=== PATIENT | female | born 1975 | race Caucasian/White ===

== ENCOUNTER → 2019-09-26 16:28 | Outpatient (CLI) | payer MEDICARE, MEDICAID, SELFPAY ==
[2019-09-26 16:02] VITALS: BMI 25.7
--- NOTE | 2019-09-26 16:33 | RAD_ITS ---
STUDY: X-RAY CHEST REASON FOR EXAM: Female, 44 years old. Cough and fever TECHNIQUE: PA and lateral views of the chest. COMPARISON: None. FINDINGS: The lungs are clear and expanded. There is no demonstrated pleural abnormality. Normal size heart. Normal mediastinum and juan. Normal visualized pulmonary arteries. Normal visualized aortic arch and descending thoracic aorta. Normal visualized thoracic spine. Normal visualized ribs, clavicles, and shoulders. There is no demonstrated abnormality of the visualized soft tissue structures of the upper abdomen. RAD/Chest PA and Lateral IMPRESSION: Normal x-ray examination of the chest. Electronically Signed: Isaias Trejo MD at 16:49 EST , Service support ,
== END ==
PROVIDERS: Referring Provider Physician Assistant Surgical; Visit Provider Physician Assistant Surgical
DX: J20.9 Acute bronchitis, unspecified (principal)
CPT/HCPCS: 71046

== ENCOUNTER 2021-08-02 13:28 | Emergency (ER) | payer MEDICARE, MEDICAID, SELFPAY | END 2021-08-02 13:37 | LOC: ED 13:41 | PROVIDERS: PCP Internal Medicine | DX: S89.90XA Unspecified injury of unspecified lower leg, initial encounter (principal) ==

== ENCOUNTER 2021-08-17 14:15 | Emergency (ER) | payer MEDICARE, MEDICAID, SELFPAY ==
[2021-08-17 14:16] VITALS: BP 139/106; PULSE 126; RESP 18; TEMP 36; O2SAT 98; BMI 25.9
[2021-08-17 15:24] VITALS: BP 130/99; PULSE 104; RESP 16; O2SAT 97
--- NOTE | 2021-08-17 16:00 | RAD_ITS ---
HISTORY: Fullness, abdominal pain recent history of diverticulitis EXAMINATION/TECHNIQUE: XR Abdomen Series W/ Chest 1 View: COMPARISON: 09/26/19 FINDINGS: --Chest: LINES/DEVICES: None. LUNGS: No consolidation, edema or effusion. No pneumothorax. MEDIASTINUM AND CARDIOVASCULAR STRUCTURES: Cardiac silhouette not enlarged. Central airways and mediastinal contour are unremarkable. BONES AND SOFT TISSUES: No acute findings. --Abdomen: LINES AND TUBES: None. BOWEL GAS PATTERN: Non-obstructive. Significant colonic fecal retention. FREE AIR: None visualized. ORGANOMEGALY: Not seen. CALCIFICATIONS: No abnormal calcifications observed. BONES AND SOFT TISSUES: No acute findings. RAD/Acute Abdomen Inc Chest IMPRESSION: No acute cardiopulmonary disease. Nonobstructive bowel gas pattern. Increased colonic fecal retention. at 1651 Reported and signed by: Dar Gilmore MD Electronically Signed: Dar Gilmore MD at 16:49 EDT Tel , Service support ,
[2021-08-17 16:06] LABS: Absolute Lymphocyte Count 3.25 X10^3/uL (0.83-4.51); Absolute Neutrophil Count 7.3 X10^3/uL (2.0-7.7); Basophil# 0.02 X10^3/uL; Basophil% 0.2 % (0-1); Eosinophil# 0.05 X10^3/uL; Eosinophils% 0.4 % (0-5); Hematocrit 42.8 % (37-47); Hemoglobin 14.6 g/dL (12.0-15.0); Lymphocyte # 3.25 X10^3/ul (0.83-4.51); Mean Corp Hgb Conc 34.1 g/dL (32-36); Mean Corpuscular Hgb 30.1 pg (27.0-32.0); Mean Corpuscular Volume 88.2 fL (81-99); Mean Platelet Vol. 9.4 fl (6.2-12.0); Monocyte# 0.59 X10^3/uL; Monocyte% 5.3 % (0-10); NRBC Flagged by Analyzer 0 % (0-5); Neutrophil # 7.26 X10^3/uL (2.7-7.7); Neutrophil % 64.8 % (47-70); Platelet Count 336 K/mm3 (150-450); RBC Distribution Width CV 12.9 % (11.6-14.6); RBC Distribution Width SD 41.7 fl (35.1-43.9); Red Blood Count 4.85 M/mm3 (4.2-5.4); White Blood Count 11.2 K/mm3 (4.4-11.0)
[2021-08-17 16:20] LABS: Anion Gap 7 (5-15); BUN 11 mg/dL (7-18); BUN/Creat Ratio 13.4 RATIO (10-20); Calcium,Total 9.5 mg/dL (8.5-10.1); Chloride 104 mmol/L (98-107); Creatinine, Serum 0.82 mg/dL (0.55-1.02); EST Glomerular Filtration Rate 80 mL/min (>60); Est Glom Filt Rate - Afr Amer 97 mL/min (>60); Estimated Creatinine Clearance 71.67 ml/min; Glucose 90 mg/dL (74-106); Potassium 3.9 mmol/L (3.5-5.1); Sodium Level 137 mmol/L (136-145)
--- NOTE | 2021-08-17 16:45 | EDS_ITS ---
HPI HPI - GI History of Present Illness Chief Complaint: Abd Pain Detail of Chief Complaint: Abdominal pain with recent history of diverticulitis Informant: patient Abdominal Pain/Flank Pain Onset: Days Context: Sudden Onset Timing: Continuous Quality: Aching Location: LUQ and LLQ Current Severity: Mild Maximum Severity: Moderate Worsened by: Nothing Relieved by: Nothing Nausea/Vomiting/Emesis GI Symptom: Positive for Nausea; Negative for Vomiting Diarrhea/Melena/Hematochezia GI Symptom: Negative for Diarrhea, Melena and Hematochezia Associated Symptoms Associated Symptoms: Negative for Dysuria, Frequency and Hematuria Narrative Narrative: Patient is a 46-year-old woman who was diagnosed July 14 diverticulitis. She was placed on Augmentin. She had problems with the Augmentin. The Augmentin was discontinued. She was then placed on Flagyl. She has an appointment see Dr. Keily Andrade on Wednesday. She contacted her PCP who recommended she come to the emergency room because of pain. She denies documented fever. She denies cardiac respiratory symptoms. She denies urologic symptoms. Denies any change in the color, consistency or caliber of her stool. She denies blood or mucus in her stool. Prior similar symptoms: Yes Recent Illness/Hospitalization: Yes PFSH PFS Medical History Chest pain DAILY FEVER Fatigue HISTORY GALLBLADDER LIFT Hypertension Shortness of breath Home Medications alprazolam 0.25 mg tablet 0.25 mg PO BID 10/18/18 [History Last Taken Unknown] citalopram 10 mg tablet 10 mg PO DAILY 10/18/18 [History Last Taken Unknown] hydrochlorothiazide 12.5 mg capsule 12.5 mg PO DAILY 10/18/18 [History Last Taken Unknown] amoxicillin-pot clavulanate 1 tab PO DAILY 08/17/21 [History Last Taken Unknown] Allergy/AdvReac Type Severity Reaction Status Date / Time Sulfa (Sulfonamide Allergy Mild UNKNOWN Verified 10/18/18 15:47 Antibiotics) amoxicillin [From Augmentin] AdvReac Other Verified 08/02/21 13:30 ciprofloxacin [From Cipro] AdvReac Other Verified 08/02/21 13:30 clavulanic acid AdvReac Other Verified 08/02/21 13:30 [From Augmentin] COLD MEDICATIONS Allergy Mild UNKNOWN Uncoded 09/26/19 15:56 Surgical History History of hysterectomy History of tubal ligation Social History (Updated 08/17/21 @ 16:[address] Trent Johnson MD) household members: spouse Smoking Status: Current every day smoker tobacco type: e-cigarettes alcohol intake: never substance use type: does not use ROS ROS ED Constitutional Constitutional ED: Denies chills, fever(s), subjective or sweats ENT ENT ED: Denies ear pain, rhinorrhea or sore throat Cardiovascular Cardiovascular: Denies chest pain, palpitations or racing heartbeat Respiratory/Chest Respiratory/Chest: Denies cough, dyspnea, dyspnea on exertion or sputum Gastrointestinal Gastrointestinal: Reports abdominal pain and nausea; Denies constipation, diarrhea or vomiting Genitourinary Genitourinary ED: Denies dysuria, hematuria or urinary frequency Musculoskeletal Musculoskeletal: Reports back pain; Denies arthralgias or myalgias Integumentary Denies rash Neurologic Neurologic: Denies headache(s) or weakness Hematologic/Lymphatic Hematologic/Lymphatic: Denies easy bleeding or easy bruising Allergic/Immunologic Allergic/Immunologic ED: Denies urticaria EXAM Physical Exam Const Vital Signs: 08/17/21 14:16 08/17/21 15:24 Temperature 96.8 F L Temperature Source Temporal Pulse Rate 126 H 104 H Respiratory Rate 18 16 Blood Pressure 139/106 H 130/99 H Blood Pressure Mean 117 109 Pulse Ox 98 97 Oxygen Delivery Method Room Air Room Air Positive well nourished and well developed General Appearance ED: well developed and NAD HEENT Reports TM's clear and dry mucous membranes normocephalic and atraumatic Tympanic Membrane ED: Yes TM's clear Mouth ED: Yes dry mucous membranes Mouth: dry mucous membranes Eyes PERRL and EOMs intact bilaterally General Eye ED: Negative for pale conjunctiva or scleral icterus Neck no lymphadenopathy, supple and no JVD Resp normal respiratory effort and clear to auscultation bilaterally Cardio regular rate, regular rhythm, S1 normal heart sound and no murmurs GI non-tender and no masses; Negative for non-distended GI Narrative: Abdomen is tympanic and slightly distended. Inspection: abdominal distention Auscultation: normoactive bowel sounds Palpation: soft Back/Spine no CVA tenderness Thoracic Spine / Upper Back: Negative for thoracic spinal tenderness Lumbar Spine / Lower Back: Negative for lumbar spinal tenderness Extremity full ROM General Extremety ED: Yes edema General Extremity: edema Neuro CN's II-XII intact bilaterally Sensorium / Orientation: alert and oriented to person Psych mental status grossly normal and thought process normal Skin no wounds Lesions: no lesions Rashes: no rashes MDM MDM MDM Narrative Medical decision making narrative: Patient has a benign abdomen. She is present on antibiotics and has appointment see surgeon. She presently has no r eproducible pain even though she is complaining of pain. Suspect patient discomfort is due to increased gas White count was obtained and slightly elevated there is no shift or bandemia. Electrolyte panel was unremarkable. Abdominal series with an ossific gas pattern with no evidence of ileus or obstruction. Since patient abdomen is nontender to percussion and white count is not singly elevated and she does not have an elevated temperature will discharge to follow-up with Dr. Keily Andrade as scheduled for August 19. Lab Data Attestation: I reviewed the patient's lab results. Labs: Laboratory Results - last 24 hr 08/17/21 08/17/21 16:03 16:03 WBC 11.2 H RBC 4.85 Hgb 14.6 Hct 42.8 MCV 88.2 MCH 30.1 MCHC 34.1 RDW Std Deviation 41.7 RDW Coeff of Carline 12.9 Plt Count 336 MPV 9.4 Immature Gran % (Auto) 0.300 Neut % (Auto) 64.8 Lymph % (Auto) 29.0 [place] % (Auto) 5.3 Eos % (Auto) 0.4 Baso % (Auto) 0.2 Absolute Neuts (auto) 7.3 Absolute Lymphs (auto) 3.25 Nucleated RBC % 0 Sodium 137 Potassium 3.9 Chloride 104 Carbon Dioxide 26.0 Anion Gap 7 BUN 11 Creatinine 0.82 Estim Creat Clear Calc 71.67 Est GFR (MDRD) Af Amer 97 Est GFR (MDRD) Non-Af 80 BUN/Creatinine Ratio 13.4 Glucose 90 Calcium 9.5 Radiography Diagnostic Testin view abdominal series reveals an ossific gas pattern with increased air. There is no evidence of pneumo peritoneum. Is no evidence of bowel obstruction. The chest portion reveals normal cardiac silhouette size. Mediastinum is normal. Lung parenchyma is normal. With no acute findings. Osseous structures are unremarkable. X-ray was interpreted by me at 1645. Discharge Plan Triage Chief Complaint: Abd Pain ED Provider: Trent Johnson Dx/Rx/DC Orders Clinical Impression: Left upper quadrant abdominal pain of unknown etiology Prescriptions: No Action hydrochlorothiazide 12.5 mg capsule 12.5 mg PO DAILY RF: 0 alprazolam [Xanax] 0.25 mg tablet 0.25 mg PO BID RF: 0 citalopram [Celexa] 10 mg tablet 10 mg PO DAILY RF: 0 amoxicillin-pot clavulanate 875-125 mg tablet 1 tab PO DAILY RF: 0 Primary Care Provider: Trish Toney Referrals: Trish Toney MD [Primary Care Provider] - Keily Andrade MD [STAFF PHYSICIAN] - Keep [facility] appointment Disposition Disposition: Home, Self Care
[2021-08-17 17:01] VITALS: BP 130/91; PULSE 83; RESP 15; O2SAT 98
== END 2021-08-17 17:03 | disposition home or self-care (01) ==
PROVIDERS: Emergency Provider Emergency Medicine; PCP Internal Medicine
DX: R10.12 Left upper quadrant pain (principal); I10 Essential (primary) hypertension; Z90.710 Acquired absence of both cervix and uterus; Z98.51 Tubal ligation status; F17.210 Nicotine dependence, cigarettes, uncomplicated
CPT/HCPCS: 74022; 80048; 85025; 99284; A4216

== ENCOUNTER 2021-11-27 11:51 | Day surgery (SDC) | payer MEDICARE, MEDICAID, SELFPAY ==
--- NOTE | 2021-11-26 15:10 | HP.PCM_ITS ---
History and Physical Date of Admission: 11/27/21 HISTORY AND PHYSICAL ? Izzy Khan 1975 ? REFERRING PHYSICIAN: Trish Toney MD ? CHIEF COMPLAINT: history of diverticulitis ? HPI: The patient is a 46 year old female referred for endoscopy. Izzy notes history of diverticulitis a few months ago. ? The patient presently has no abdominal pain, though she notes occasional 'twinges'. ? Izzy has not undergone prior endoscopy. She is trying to determine if any trigger fingers, especially noted after having pepperoni pizza and this made her symptoms worse. ? ? PAST MEDICAL HISTORY ? Anxiety ? ? Bipolar affective disorder, currently depressed, moderate ([facility]) 06/29/2019 ? Diagnosed by [facility] 06/29/2109 ? Diverticulitis ? ? Hypertension ? ? Panic disorder ? ? PTSD (post-traumatic stress disorder) ? ? PAST SURGICAL HISTORY ? HYSTERECTOMY HX ? ? ? LIGATE FALLOPIAN TUBE ? ? ? PAST SURGICAL HISTORY OF ? ? ? bladder repair ? ? Current Outpatient Medications ? hydroCHLOROthiazide (HYDRODIURIL, ESIDRIX) 12.5 mg tablet Take 1 tablet by mouth once daily. ? ALPRAZolam (XANAX) 0.25 mg tablet 1 mg three times daily as needed. ? peg 3350-Electrolytes (GOLYTELY) 236-22.74-6.74 -5.86 gram suspension Refer to printed prep instructions from your provider. ? doxycycline monohydrate 100 mg tablet Take 1 tablet by mouth twice daily for 10 days. (Patient not taking: Reported on 10/20/2021 ) ? benzonatate (TESSALON PERLE) 100 mg capsule Take 1 capsule by mouth three times daily as needed. (Patient not taking: Reported on 10/13/2021 ) ? amoxicillin-clavulanic acid (AUGMENTIN) 875-125 mg per tablet Take by mouth. (Patient not taking: Reported on 08/27/2021 ) ? gabapentin (NEURONTIN) 100 mg capsule Take 1 capsule by mouth twice daily for 30 days. ? nystatin (MYCOSTATIN) 100,000 unit/mL suspension Take 5 mL by mouth four times daily. 1tsp swish in mouth for several minutes, then swallow (or expectorate) 4 times daily until gone. (Patient not taking: Reported on 08/01/2021 ) ? citalopram (CELEXA) 20 mg tablet Take 1 tablet by mouth once daily. (Patient not taking: Reported on 08/01/2021 ) ? ? ALLERGIES: Ciprofloxacin, Sulfa (Sulfonamide Antibiotics), Ativan [Lorazepam], Augmentin [Amoxicillin-Pot Clavulanate], Cough Decongest D, Nitrofurantoin, and Paxil [Paroxetine Hcl] ? PERSONAL HISTORY: Social History Tobacco Use ? Smoking status: Former Smoker ? ? Packs/day: 1.00 ? ? Quit date: 07/19/2021 ? ? Years since quittin.2 ? Smokeless tobacco: Never Used Substance Use Topics ? Alcohol use: Not Currently ? Drug use: No ? FAMILY HISTORY Problem Relation Age of Onset ? other (HTN) Mother ? ? other (HTN, anxiety) Father ? ? other (HTN, ADHD) Sister ? ? Anxiety disorder Brother ? ? Anxiety disorder Paternal Grandmother ? ? Breast Cancer Paternal Grandmother ? ? Emphysema Paternal Grandfather ? ? ? REVIEW OF SYSTEMS: ?General:???The patient denies fatigue, denies weight loss, denies weight g ain, denies feeling hot, and denies feelings of cold. ?Eyes: ?The patient denies glaucoma, denies eye injury/surgery, does not wear glasses or contacts. ?Ear/Nose/Throat: ?The patient NOTES allergies, denies hayfever, denies ear infections, and denies bloody noses. ?Cardiovascular: ?The patient denies chest pain, denies heart disease, NOTES high blood pressure,denies cardiac stent, denies prior heart attack, denies irregular heart beat, denies high cholesterol, ?denies poor circulation, denies heart failure, other cardiac issues, denies claudication, denies cold feet, denies peripheral arterial stent. ?Respiratory: ?The patient denies tuberculosis, denies pneumonia, denies frequent cough, denies pulmonary embolism, denies shortness of breath, and denies coughing up blood. ?Gastrointestinal: ?The patient denies difficulty swallowing, denies acid reflux, denies ulcers, denies vomiting, denies jaundice/hepatitis, denies gallbladder problems, denies black or tarry stools, denies hemorrhoids, denies bleeding from rectum, NOTES diverticulitis, NOTES constipation, denies diarrhea, denies loss of stool control, and denies hernias. ?Kidney/Bladder: ?The patient denies kidney stones, denies urine infections, and denies bloody urine. ?Skin: ?The patient denies a history of skin cancer, denies bleeding/changing moles, and denies a history of skin rash. ?Neurologic: ?The patient denies a history of epilepsy/convulsions, denies headaches, denies head/spinal injuries, and denies stroke/TIA. ?Psychiatric: ?The patient denies psychiatric medications, NOTES depression, and denies voices, denies substance abuse. ?Endocrine: ?The patient denies thyroid disorders, denies diabetes, and denies hormonal problems. ?Hematologic: ?The patient denies a history of bruising, denies bleeding, and denies anemia, denies blood clots. ?Infections: ?The patient denies a history of measles and mumps, denies rheumatic fever, and denies sexually transmitted diseases. ?Musculoskeletal: ?The patient denies back pain/injury, denies back problems, denies sciatica, denies knee/foot trouble, denies arthritis, or denies gout. ? ? PHYSICAL EXAMINATION: ? General: The patient is 46 year old female, well nourished, well hydrated in no acute distress. The patient is oriented to time, place, and person. ? VITALS: Blood pressure 102/78, pulse 88, temperature 37 ?C (98.6 ?F), height 160 cm (5' 3), weight 70.9 kg (156 lb 6.4 oz), last menstrual period 08/11/2010, SpO2 95 %. Body mass index is 27.71 kg/m?. ? Head: Normal cephalic, atraumatic ? Eyes: pupils are equally round, sclera are clear/anicteric ? Neck supple with no tracheal deviation noted ? Respiratory: Normal respiratory excursion and pattern. ? Abdominal exam: Benign appearing. ? Extremities: no clubbing, cyanosis or edema. ? Neuro: non focal ? Psych: calm and appropriate ? ? IMPRESSION: LLQ abdominal pain ? PLAN: I have discussed the above with the patient. I have offered colonoscopy , possible biopsies I have explained the procedure to the patient. I have counseled the patient as to the risks of the procedure, including but not limited to: infection, bleeding, injury to any intrabdominal organs such as liver/spleen, perforation of the GI tract, inability to complete the procedure, complications of anesthesia, etc. ? the patient understands. ? The patient was offered a surgery/procedure. The provider and patient have discussed in detail the risk of exposure to and/or potential harm posed by the COVID-19 virus with having a surgery/procedure at this time versus the risk of? delaying the surgery/procedure. It is not possible to know either the risk of delaying the surgery or procedure or chance of getting an infection with perfect accuracy, but a joint decision was made between the patient and the provider ?to proceed at this time with the scheduled surgery/procedure. ? The patient wishes to proceed. I have answered all questions to the patient?s satisfaction and the patient has no further questions. Patient prefers MAC endo ? Diagnoses: (R10.32) Left lower quadrant abdominal pain (primary encounter diagnosis) ? Return to Clinic: The patient has been instructed as to colon cleansing preparation ? . ? Keily Andrade MD
[2021-11-27] VITALS (7 sets, daily range): BP systolic 72–132; BP diastolic 47–96; PULSE 65–113; RESP 16–18; TEMP 35.8–36.9; O2SAT 98–100; BMI 28.9
[2021-11-27] MEDS: Lactated Ringers 1,000 ML 15 ML IV (12:43)
--- NOTE | 2021-11-27 13:00 | COLBX_PTH ---
PATIENT: GARY DELACRUZ LOC: EN U#:[id number] AGE/SX: 46/F ROOM: RE11/27/[address]: Dr. Keily Andrade MD : 1975 BED: DIS: 11/27/2021 SPEC #: [id number] RECD: 11/27/21 14:12 STATUS: ODALYS REPeyton #: [id number] TAMARA: 11/27/21 13:[address]: Keily Andrade DEPT: SURGICAL PATHOLOGY RECD BY: Cindy Lucio ENTERED: 11/28/21 11:18 SP TYPE: COLON BX OTHR DR: Dr. Trish Toney MD Tissues: A - Sigmoid colon biopsy B - Rectum, NOS Procedures: Surgery Specimen Level IV HEADER OPERATION: Colonoscopy (MAC) with polypectomy PRE-OP DIAGNOSIS: [facility] abdominal pain TISSUE SUBMITTED: A ? Sigmoid polyps, B ? Rectal polyp MICROSCOPIC DIAGNOSIS A. Sigmoid polyp, polypectomy: Fragments of tubular adenoma. B. Rectal polyp, polypectomy: Tubular adenoma with focal high-grade dysplasia. See comment. ROBERTO:brandon 12/01/2021 COMMENT B. High-grade dysplasia is noted towards the luminous surface of the polyp. Correlation with clinical, endoscopic findings and appropriate follow up are necessary. MICROSCOPIC DESCRIPTION Slides are reviewed. GROSS DESCRIPTION A - Received in fixative is one container labeled with the patient's name and designated sigmoid polyp. The specimen consists of a romo-pink polyp measuring 1 x 1 x 0.7 cm. This is bisected. Also present in the container are smaller fragments of romo soft tissue measuring in aggregate 0.8 x 0.2 x 0.1 cm. The entire specimen is submitted in one cassette. B - Received in fixative is one container labeled with the patient's name and designated rectal polyp. The specimen consists of a romo-pink polyp measuring 1 x 0.7 x 0.6 cm. The polyp is bisected and submitted entirely in one cassette. / ROBERTO:brandon 11/28/2021 TC:1 CPT: 09219 x2
--- NOTE | 2021-11-27 13:59 | OP.COLON_ITS ---
Patient Name: Izzy Khan Procedure Date: 11/27/2021 1:10 PM Date of : 1975 Age: 46 Procedure: Colonoscopy Indications: Abdominal pain in the left lower quadrant Providers: Keily Andrade MD Medicines: See the Anesthesia note for documentation of the administered medications Patient Profile: Refer to note in patient chart for documentation of history and physical. Last Colonoscopy: none. The patient's first colonoscopy is today. Complications: No immediate complications. Procedure: Pre-Anesthesia Assessment: - see anesthesia note After I obtained informed consent, the scope was passed under direct vision. Throughout the procedure, the patient's blood pressure, pulse, and oxygen saturations were monitored continuously. The colonoscope was introduced through the anus and advanced to the cecum, identified by the appendiceal orifice, IC valve and transillumination. The colonoscopy was performed without difficulty. The patient tolerated the procedure well. The quality of the bowel preparation was poor, there was still retained fecal material. Therefore lavage and aspiration was done to clear the fecal material. This took some time. The baldwin were cleared adequately. Scope In: 1:16:57 PM Scope Withdrawal Time 0 hours 29 minutes 40 seconds Scope Out: 1:52:05 PM Total Procedure Duration Time 0 hours 35 minutes 8 seconds Findings: The perianal and digital rectal examinations were normal. A 10 to 20 mm polyp was found in the sigmoid colon. The polyp was pedunculated. The polyp was removed with a hot snare. Resection and retrieval were complete. Verification of patient identification for the specimen was done. Area was successfully injected with 2 mL Vesna ink for tattooing. Estimated blood loss was minimal. A 5 to 14 mm polyp was found in the rectum. The polyp was pedunculated. The polyp was removed with a hot snare. Resection and retrieval were complete. Verification of patient identification for the specimen was done by the nurse. Estimated blood loss was minimal. A 4 to 9 mm polyp was found in the distal sigmoid colon. The polyp was sessile. The polyp was removed with a hot snare. Resection and retrieval were complete. Verification of patient identification for the specimen was done by the nurse. Estimated blood loss was minimal. Multiple small and large-mouthed diverticula were found in the sigmoid colon. Impression: - One 10 to 20 mm polyp in the sigmoid colon, removed with a hot snare. Resected and retrieved. Injected. - One 5 to 14 mm polyp in the rectum, removed with a hot snare. Resected and retrieved. - One 4 to 9 mm polyp in the distal sigmoid colon, removed with a hot snare. Resected and retrieved. - Diverticulosis in the sigmoid colon. Recommendation: - Discharge patient to home (ambulatory). - Resume previous diet. - Continue present medications. - Await pathology results. - You may set up a televisit with Tammy Kelly PA-C - please call to set up this appointment, if you want discussion of results. - Repeat colonoscopy is recommended for adenoma surveillance. The colonoscopy date will be determined after pathology results from today's exam become available for review. Procedure Code(s): --- Professional --- 32399, Colonoscopy, flexible; with removal of tumor(s), polyp(s), or other lesion(s) by snare technique 79940, Colonoscopy, flexible; with directed submucosal injection(s), any substance Diagnosis Code(s): --- Professional --- K62.1, Rectal polyp D12.5, Benign neoplasm of sigmoid colon R10.32, Left lower quadrant pain K57.30, Diverticulosis of large intestine without perforation or abscess without bleeding CPT copyright 2017 [employer]. All rights reserved. The codes documented in this report are preliminary and upon health information coder review may be revised to meet current compliance requirements. MD Keily Santamaria MD 11/27/2021 1:58:49 PM This report has been signed electronically. Number of Addenda: 0 Note Initiated On: 11/27/2021 1:10 PM
--- NOTE | 2021-11-27 14:00 | OP.CCLET_ITS ---
11/27/2021 Trish Toney [address] [id number] Re : Colonoscopy procedure for Izzy Khan Dear Dr. Toney This procedure was performed on November. My impressions and recommendations are as follows: Impressions : - One 10 to 20 mm polyp in the sigmoid colon, removed with a hot snare. Resected and retrieved. Injected. - One 5 to 14 mm polyp in the rectum, removed with a hot snare. Resected and retrieved. - One 4 to 9 mm polyp in the distal sigmoid colon, removed with a hot snare. Resected and retrieved. - Diverticulosis in the sigmoid colon. Recommendations : - Discharge patient to home (ambulatory). - Resume previous diet. - Continue present medications. - Await pathology results. - You may set up a televisit with Tammy Kelly PA-C - please call to set up this appointment, if you want discussion of results. - Repeat colonoscopy is recommended for adenoma surveillance. The colonoscopy date will be determined after pathology results from today's exam become available for review. My findings are described in the full procedure note, which is enclosed. If I can be of further assistance, please feel free to contact me at Doctor phone number(s): , Work: . Sincerely, MD Keily Santamaria MD 11/27/2021 1:58:49 PM This report has been signed electronically.
== END 2021-11-27 23:59 | disposition home or self-care (01) ==
LOC: EN 11:55 → AC 12:01
PROVIDERS: PCP Internal Medicine; Referring Provider Internal Medicine; Visit Provider Surgery
PROC: 0DJD8ZZ Inspection of Lower Intestinal Tract, Via Natural or Artificial Opening Endoscopic (ICD-10-PCS; CPT 45378; principal; 2021-11-27 12:55)
DX: D12.5 Benign neoplasm of sigmoid colon (principal); K57.30 Diverticulosis of large intestine without perforation or abscess without bleeding; D12.8 Benign neoplasm of rectum; F43.10 Post-traumatic stress disorder, unspecified; I10 Essential (primary) hypertension; Z87.891 Personal history of nicotine dependence; Z87.19 Personal history of other diseases of the digestive system; Z79.899 Other long term (current) drug therapy; Z86.16 Personal history of COVID-19
CPT/HCPCS: 45381; 45385; 88305; J7120; A4648; J2405

== ENCOUNTER 2022-01-12 13:51 | Emergency (ER) | payer MEDICARE, MEDICAID, SELFPAY ==
[2022-01-12 13:52] VITALS: BP 135/85; PULSE 108; RESP 18; TEMP 35.9; O2SAT 97; BMI 25.7
--- NOTE | 2022-01-12 14:41 | EX.ED.DYSGE1 ---
HPI History of Present Illness Chief Complaint: Abd Pain Informant: patient Narrative Narrative: Patient presents with some abdominal pain. She had an episode of diverticulitis back in July or August. She has had some GI symptoms off and on ever since. She just saw Dr. Puga on Wednesday. He ordered multiple blood in lab test. She has not yet been able to get hold of him over the weekend to ask about the timing of these. She came in today to the emergency department to get these because she is also starting to get more left lower quadrant pain again. Her symptoms started worsening on Wednesday of last week. She ate mozzarella sticks which caused some cramping discomfort and softer bowel movements. Her bowel movements are now firm after missing her Metamucil dose. No blood. No fevers or chills. No urinary symptoms. She has had some mild nausea on occasion but no vomiting. [facility] Medical History Anemia Anxiety Diverticulitis Fatigue History of COVID-19 History of diverticulitis Hypertension Lymph node disorder Personal history of colonic polyps Shortness of breath Smoker Vaso vagal episode Wears partial dentures Home Medications alprazolam 0.25 mg tablet 1 mg PO TID 10/18/18 [History Last Taken 11/27/21] hydrochlorothiazide 12.5 mg capsule 12.5 mg PO DAILY 10/18/18 [History Last Taken Unknown] dicyclomine 10 mg capsule 20 mg PO Q6H PRN #90 cap NS 01/12/22 [Rx Last Taken Unknown] Allergy/AdvReac Type Severity Reaction Status Date / Time Sulfa (Sulfonamide Allergy Mild UNKNOWN Verified 11/26/21 10:43 Antibiotics) amoxicillin [From Augmentin] AdvReac Other Verified 11/26/21 10:43 ciprofloxacin [From Cipro] AdvReac Other Verified 11/26/21 10:43 clavulanic acid AdvReac Other Verified 11/26/21 10:43 [From Augmentin] COLD MEDICATIONS Allergy Mild UNKNOWN Uncoded 11/26/21 10:43 Surgical History History of hysterectomy History of tooth extraction History of tubal ligation Hx of bladder repair surgery Social History household members: spouse Smoking Status: Current every day smoker tobacco type: e-cigarettes alcohol intake: never substance use type: does not use ROS ROS ED Constitutional Constitutional ED: Denies chills or fever(s) Eyes Eyes: Denies change in vision ENT ENT ED: Denies rhinorrhea or sore throat Cardiovascular Cardiovascular: Denies chest pain Respiratory/Chest Respiratory/Chest: Denies cough or dyspnea Gastrointestinal Gastrointestinal: Reports abdominal pain, diarrhea and nausea; Denies constipation, melena or vomiting Genitourinary Genitourinary ED: Denies dysuria or hematuria Musculoskeletal Musculoskeletal: Denies myalgias Integumentary Denies rash Neurologic Neurologic: Denies headache(s) or weakness Psychiatric Psychiatric: Reports anxiety Endocrine Endocrinology: Denies polydipsia or polyuria Allergic/Immunologic Allergic/Immunologic ED: Denies urticaria EXAM Physical Exam Const Vital Signs: 01/12/22 13:52 Temperature 96.7 F L Temperature Source Temporal Pulse Rate 108 H Respiratory Rate 18 Blood Pressure 135/85 H Blood Pressure Mean 101 Pulse Ox 97 Oxygen Delivery Method Room Air Positive well nourished and well developed General Appearance ED: well developed and NAD; Negative for cyanotic or diaphoretic HEENT Reports moist mucous membranes Eyes General Eye ED: Negative for pale conjunctiva or scleral icterus Neck no JVD Chest Wall inspection of chest normal Resp normal respiratory effort and clear to auscultation bilaterally Effort and Inspection: Negative for pain with movement Auscultation: Negative for rales, rhonchi or wheezes Cardio regular rate GI normal to inspection, nondistended, normoactive bowel sounds GI Narrative: Abdomen is soft with normal bowel sounds. Nondistended. She has very mild tenderness to the left lower quadrant. Most of this is subjective. There is no indication of rebound or guarding. I feel no mass. No CVA tenderness. Palpation: soft Back/Spine no CVA tenderness Extremity normal to inspection Neuro Sensorium / Orientation: alert Psych mental status grossly normal Skin no rashes or lesions noted and no wounds MDM MDM MDM Narrative Medical decision making narrative: Patient CBC shows mild elevation of the hemoglobin but no other abnormality. Electrolytes are overall unremarkable. Lactate is negative. ESR and CRP are negative. Liver function test are normal. Urinalysis is normal. CT does not show any acute process. Patient was comfortable with the results. She is comfortable going home. It sounds like Bentyl was just sent in as a prescription today. She states the pharmacy was out of it but they should have it in a couple days. She will follow up with Dr. Puga as scheduled. We discussed reasons to return that would be worsening pain, vomiting, fevers or other concerns. Lab Data Attestation: I reviewed the patient's lab results. Labs: Laboratory Results - last 24 hr 01/12/22 01/12/22 01/12/22 14:50 14:50 14:50 WBC 10.9 RBC 5.16 Hgb 15.8 H Hct 46.4 MCV 89.9 MCH 30.6 MCHC 34.1 RDW Std Deviation 41.4 RDW Coeff of Carline 12.5 Plt Count 353 MPV 9.7 Immature Gran % (Auto) 0.300 Neut % (Auto) 57.9 Lymph % (Auto) 36.0 [place] % (Auto) 4.8 Eos % (Auto) 0.7 Baso % (Auto) 0.3 Absolute Neuts (auto) 6.3 Absolute Lymphs (auto) 3.92 Nucleated RBC % 0 ESR 8 Sodium 136 Potassium 3.3 L Chloride 102 Carbon Dioxide 29.0 Anion Gap 5 BUN 9 Creatinine 0.95 Estim Creat Clear Calc 61.86 Est GFR (MDRD) Af Amer 82 Est GFR (MDRD) Non-Af 67 BUN/Creatinine Ratio 9.5 L Glucose 98 Lactic Acid 1.1 Calcium 9.3 Total Bilirubin 0.40 AST 14 L ALT 26 Alkaline Phosphatase 73 Lactate Dehydrogenase 146 C-React Prot Ext Range < 2.90 Total Protein 8.6 H Albumin 4.5 Globulin 4.1 Albumin/Globulin Ratio 1.1 Urine Color Urine Clarity Urine pH Ur Specific [place] Urine Protein Urine Glucose (UA) Urine Ketones Urine Occult Blood Urine Nitrite Urine Bilirubin Urine Urobilinogen Ur Leukocyte Esterase Urine RBC Urine WBC Ur Squamous Epith Cells Urine Bacteria Urine Mucus 01/12/22 15:37 WBC RBC Hgb Hct MCV MCH MCHC RDW Std Deviation RDW Coeff of Carline Plt Count MPV Immature Gran % (Auto) Neut % (Auto) Lymph % (Auto) [place] % (Auto) Eos % (Auto) Baso % (Auto) Absolute Neuts (auto) Absolute Lymphs (auto) Nucleated RBC % ESR Sodium Potassium Chloride Carbon Dioxide Anion Gap BUN Creatinine Estim Creat Clear Calc Est GFR (MDRD) Af Amer Est GFR (MDRD) Non-Af BUN/Creatinine Ratio Glucose Lactic Acid Calcium Total Bilirubin AST ALT Alkaline Phosphatase Lactate Dehydrogenase C-React Prot Ext Range Total Protein Albumin Globulin Albumin/Globulin Ratio Urine Color Yellow Urine Clarity Clear Urine pH 6.5 Ur Specific [place] 1.005 Urine Protein Negative Urine Glucose (UA) Normal Urine Ketones Negative Urine Occult Blood Negative Urine Nitrite Negative Urine Bilirubin Negative Urine Urobilinogen Normal Ur Leukocyte Esterase Negative Urine RBC 0 SEEN Urine WBC 0-5 SEEN Ur Squamous Epith Cells 0-5 SEEN Urine Bacteria RARE Urine Mucus 0 SEEN Radiography Diagnostic Testing: Clinical Impression(s) from Imaging Studies Abdomen/Pelvis CT 01/12/22 15:45 IMPRESSION: Negative CT of the abdomen and pelvis with intravenous contrast. Electronically Signed: Kristy Frazier MD at 16:30 EST Reading Location ID and State: [id number] / Tel , Service support , Discharge Plan Triage Chief Complaint: Abd Pain ED Provider: Valentin Salazar Dx/Rx/DC Orders Clinical Impression: Abdominal pain, History of diverticulitis Instructions: ED Abdominal Pain Unkn Cause Fem Prescriptions: No Action hydrochlorothiazide 12.5 mg capsule 12.5 mg PO DAILY RF: 0 alprazolam [Xanax] 0.25 mg tablet 1 mg PO TID RF: 0 dicyclomine 10 mg capsule 20 mg PO Q6H PRN (Reason: abdominal discomfort) Qty: 90 RF: 3 Primary Care Provider: Trish Toney Referrals: Trish Toney MD [Primary Care Provider] - Miguel Puga DO [STAFF PHYSICIAN] - Keep Bernice appointment Disposition Disposition: Home, Self Care
[2022-01-12 15:05] LABS: Erythrocyte Sedimentation Rate 8 mm/hr (0-30)
[2022-01-12 15:06] LABS: Absolute Lymphocyte Count 3.92 X10^3/uL (0.83-4.51); Absolute Neutrophil Count 6.3 X10^3/uL (2.0-7.7); Basophil# 0.03 X10^3/uL; Basophil% 0.3 % (0-1); Eosinophil# 0.08 X10^3/uL; Eosinophils% 0.7 % (0-5); Hematocrit 46.4 % (37-47); Hemoglobin 15.8 g/dL (12.0-15.0); Lymphocyte # 3.92 X10^3/ul (0.83-4.51); Mean Corp Hgb Conc 34.1 g/dL (32-36); Mean Corpuscular Hgb 30.6 pg (27.0-32.0); Mean Corpuscular Volume 89.9 fL (81-99); Mean Platelet Vol. 9.7 fl (6.2-12.0); Monocyte# 0.52 X10^3/uL; Monocyte% 4.8 % (0-10); NRBC Flagged by Analyzer 0 % (0-5); Neutrophil # 6.31 X10^3/uL (2.7-7.7); Neutrophil % 57.9 % (47-70); Platelet Count 353 K/mm3 (150-450); RBC Distribution Width CV 12.5 % (11.6-14.6); RBC Distribution Width SD 41.4 fl (35.1-43.9); Red Blood Count 5.16 M/mm3 (4.2-5.4); White Blood Count 10.9 K/mm3 (4.4-11.0)
[2022-01-12 15:40] LABS: ALB/GLOB Ratio 1.1 RATIO (0.9-2.4); AST(SGOT) 14 U/L (15-37); Alanine Aminotransfer ALT/SGPT 26 U/L (13-56); Albumin, Serum 4.5 g/dL (3.2-5.0); Alkaline Phosphatase 73 U/L (45-117); Anion Gap 5 (5-15); BUN 9 mg/dL (7-18); BUN/Creat Ratio 9.5 RATIO (10-20); CRP < 2.90 mg/L (0.0-3.0); Calcium,Total 9.3 mg/dL (8.5-10.1); Chloride 102 mmol/L (98-107); Creatinine, Serum 0.95 mg/dL (0.55-1.02); EST Glomerular Filtration Rate 67 mL/min (>60); Est Glom Filt Rate - Afr Amer 82 mL/min (>60); Estimated Creatinine Clearance 61.86 ml/min; Globulin 4.1 g/dL (2.2-4.2); Glucose 98 mg/dL (74-106); LDH 146 U/L (84-246); Potassium 3.3 mmol/L (3.5-5.1); Protein, Total 8.6 g/dL (6.4-8.2); Sodium Level 136 mmol/L (136-145)
--- NOTE | 2022-01-12 15:45 | CT_ITS ---
EXAM: CT ABDOMEN AND PELVIS WITH INTRAVENOUS CONTRAST CLINICAL INDICATION: LLQ pain TECHNIQUE: Helically acquired images were obtained of the abdomen and pelvis with intravenous contrast. This CT exam was performed using one or more of the following dose reduction techniques: automated exposure control, adjustment of the mA and/or kV according to patient size, and/or use of iterative reconstruction technique. This report was created using Spread[employer] report generation technology. CONTRAST: IV 100mL Isovue-300 COMPARISON: None. FINDINGS: LOWER THORAX: Unremarkable. Lung bases are clear. No cardiomegaly. No significant pericardial effusion. ABDOMEN: LIVER: Unremarkable. Homogeneous. No focal mass. GALLBLADDER AND BILE DUCTS: Unremarkable. No calcified gallstones. No gallbladder distention or wall edema. No intra- or extrahepatic biliary ductal dilation. PANCREAS: Unremarkable. No focal cystic or solid mass. SPLEEN: Unremarkable. Normal size without focal cystic or solid mass. ADRENALS: Unremarkable. No nodules. KIDNEYS AND URETERS: Unremarkable. Normal renal size and position. No hydronephrosis. STOMACH AND BOWEL: Unremarkable. No stomach or bowel distention. No focal inflammatory change. PELVIS: APPENDIX: No evidence of acute appendicitis. BLADDER: Unremarkable. REPRODUCTIVE: Unremarkable as visualized. No mass. ABDOMEN and PELVIS: INTRAPERITONEAL SPACE: Unremarkable. No ascites or other fluid collection. No free air. BONES/JOINTS: Unremarkable. No suspicious lytic or blastic abnormality. SOFT TISSUES: Unremarkable. No discrete abdominal or pelvic wall hernia. VASCULATURE: Unremarkable. Abdominal aorta is normal in caliber. LYMPH NODES: Unremarkable. No enlarged lymph nodes. CT/Abdomen/Pelvis W IV Cont ONLY IMPRESSION: Negative CT of the abdomen and pelvis with intravenous contrast. Electronically Signed: Kristy Frazier MD at 16:30 EST Reading Location ID and State: [id number] / Tel , Service support ,
[2022-01-12 15:50] LABS: Mucous, Urine 0 SEEN /hpf (<or=2+); Red Blood Cells-Urine 0 SEEN /hpf (0-5)
[2022-01-12 15:51] LABS: Lactic Acid 1.1 mmol/L (0.4-1.9)
[2022-01-12 15:54] LABS: Color, Urine Yellow (Yellow); Glucose, Dipstick Normal (Normal); Ketone-Dipstick Negative (Negative); Leukocyte Esterase-Dipstick Negative /ul (Negative); Nitrite-Dipstick Negative (Negative); Occult Blood-Urine Negative /ul (Negative); Protein-Dipstick Negative (Negative); Specific Gravity, Urine 1.005 (1.002-1.030); Urine Bilirubin Dipstick Negative (Negative); Urine Clarity Clear (Clear); Urine Urobilinogen Normal (Normal); Urine pH 6.5 (5.0 - 8.0)
[2022-01-12 16:36] LABS: Bacteria RARE /hpf (None Seen); Squamous Epithelial Cells - UA 0-5 SEEN /hpf (5-10); White Blood Cells 0-5 SEEN /hpf (0-5)
[2022-01-12 17:19] VITALS: BP 122/83; PULSE 94; RESP 14; RESP 16; O2SAT 96
== END 2022-01-12 17:21 | disposition home or self-care (01) ==
PROVIDERS: Emergency Provider Emergency Medicine; PCP Internal Medicine; Visit Provider Emergency Medicine
DX: R10.9 Unspecified abdominal pain (principal); R11.0 Nausea; I10 Essential (primary) hypertension; Z86.16 Personal history of COVID-19; F17.210 Nicotine dependence, cigarettes, uncomplicated; Z87.19 Personal history of other diseases of the digestive system
CPT/HCPCS: 74177; 80053; 81001; 83605; 83615; 85025; 85652; 86140; 99283; Q9967; A4216

== ENCOUNTER 2022-01-13 13:11 | Outpatient (CLI) | payer MEDICARE, MEDICAID, SELFPAY ==
[2022-01-16 22:12] LABS: Calprotectin, Stool 24 ug/g (0-120)
[2022-01-18 18:32] LABS: Giardia Lamblia, Stool EIA Negative (Negative)
== END 2022-01-13 23:59 | disposition home or self-care (01) ==
PROVIDERS: PCP Internal Medicine; Referring Provider Internal Medicine Gastroenterology; Visit Provider Internal Medicine Gastroenterology
DX: R10.9 Unspecified abdominal pain (principal); K57.92 Diverticulitis of intestine, part unspecified, without perforation or abscess without bleeding
CPT/HCPCS: 83630; 83993; 87177; 87209; 87329; 87493; 87506

== ENCOUNTER 2022-02-09 13:06 | Outpatient (CLI) | payer MEDICARE, MEDICAID, SELFPAY ==
[2022-02-09 14:03] LABS: Hemoglobin A1c 5.2 % (3.8-5.6)
[2022-02-09 14:17] LABS: Cholesterol 182 mg/dL (200); Estradiol 46.8 pg/mL; Follicle Stimulating Hormone 9.8 mIU/mL; High Density Lipoprotein 45 mg/dL; Luteinizing Hormone 20.1 mIU/mL; T4 Free Direct 1.06 ng/dL (0.76-1.46); Thyroid Stim Hormone (TSH) 1.31 uIU/mL (0.358-3.74); Triglycerides 133 mg/dL; Very Low Density Lipoprotein 27 mg/dL (5-40)
== END 2022-02-09 23:59 | disposition home or self-care (01) ==
LOC: LAB 13:09
PROVIDERS: PCP Internal Medicine; Referring Provider Obstetrics & Gynecology; Visit Provider Obstetrics & Gynecology
DX: N95.1 Menopausal and female climacteric states (principal)
CPT/HCPCS: 36415; 80061; 82670; 83001; 83002; 83036; 84439; 84443

== ENCOUNTER 2022-09-08 17:44 | Emergency (ER) | payer MEDICARE, MEDICAID, SELFPAY ==
[2022-09-08 17:46] VITALS: BP 134/102; PULSE 112; RESP 18; TEMP 36.5; O2SAT 99; BMI 25.3
[2022-09-08 17:55] VITALS: BP 138/99; PULSE 112; RESP 18; O2SAT 99
[2022-09-08 18:42] LABS: Mucous, Urine 0 SEEN /hpf (<or=2+); Red Blood Cells-Urine 0 SEEN /hpf (0-5); White Blood Cells 0 SEEN /hpf (0-5)
[2022-09-08 18:46] LABS: Absolute Lymphocyte Count 4.02 X10^3/uL (0.83-4.51); Absolute Neutrophil Count 5.2 X10^3/uL (2.0-7.7); Basophil# 0.03 X10^3/uL; Basophil% 0.3 % (0-1); Eosinophil# 0.11 X10^3/uL; Eosinophils% 1.1 % (0-5); Hemoglobin 14.7 g/dL (12.0-15.0); Lymphocyte # 4.02 X10^3/ul (0.83-4.51); Lymphocyte % 40.6 % (19-41); Mean Corpuscular Hgb 31.1 pg (27.0-32.0); Mean Corpuscular Volume 88.8 fL (81-99); Mean Platelet Vol. 9.7 fl (6.2-12.0); Monocyte# 0.55 X10^3/uL; Monocyte% 5.6 % (0-10); NRBC Flagged by Analyzer 0 % (0-5); Neutrophil # 5.17 X10^3/uL (2.7-7.7); Neutrophil % 52.2 % (47-70); Platelet Count 293 K/mm3 (150-450); RBC Distribution Width CV 12.7 % (11.6-14.6); RBC Distribution Width SD 41.6 fl (35.1-43.9); Red Blood Count 4.73 M/mm3 (4.2-5.4); White Blood Count 9.9 K/mm3 (4.4-11.0)
[2022-09-08 18:47] LABS: Color, Urine Yellow (Yellow); Glucose, Dipstick Normal (Normal); Ketone-Dipstick Negative (Negative); Leukocyte Esterase-Dipstick 25 /ul (Negative); Nitrite-Dipstick Negative (Negative); Occult Blood-Urine Negative /ul (Negative); Protein-Dipstick Negative (Negative); Specific Gravity, Urine 1.005 (1.002-1.030); Urine Bilirubin Dipstick Negative (Negative); Urine Clarity Clear (Clear); Urine Urobilinogen Normal (Normal)
[2022-09-08 18:54] LABS: Bacteria RARE /hpf (None Seen); Squamous Epithelial Cells - UA 0-5 SEEN /hpf (5-10)
[2022-09-08 19:06] LABS: Anion Gap 6 (5-15); BUN 11 mg/dL (7-18); BUN/Creat Ratio 13.4 RATIO (10-20); Calcium,Total 9.2 mg/dL (8.5-10.1); Chloride 108 mmol/L (98-107); Creatinine, Serum 0.82 mg/dL (0.55-1.02); EST Glomerular Filtration Rate 80 mL/min (>60); Est Glom Filt Rate - Afr Amer 96 mL/min (>60); Estimated Creatinine Clearance 70.91 ml/min; Glucose 92 mg/dL (74-106); Potassium 3.5 mmol/L (3.5-5.1); Sodium Level 141 mmol/L (136-145)
--- NOTE | 2022-09-08 20:07 | CT_ITS ---
INDICATION: History of diverticulitis and colitis. EXAMINATION: CT ABDOMEN AND PELVIS WITHOUT CONTRAST - CT Abdomen And Pelvis W/O Contrast Injection TECHNIQUE: Helically acquired images were obtained of the abdomen and pelvis without oral or IV contrast. A radiation dose optimization technique was used for this scan. IV Contrast dosage and agent: None. Oral contrast: None. COMPARISON: January 12, 2022. FINDINGS: LOWER CHEST: Lung bases are clear. No cardiomegaly or pericardial effusion. LIVER: Homogeneous. No focal mass. GALLBLADDER AND BILIARY TREE: No calcified gallstones. No gallbladder distension or wall edema. No intra- or extrahepatic biliary ductal dilation. PANCREAS: No focal cystic or solid mass. SPLEEN: Normal size without focal cystic or solid mass. ADRENAL GLANDS: No nodules. KIDNEYS AND URETERS: Nonobstructing 1 to 2 mm calcification lower pole calyx of an otherwise normal right kidney. Normal visualized right ureter. Normal left kidney. Normal visualized left ureter. PERITONEUM: No ascites or free air. No other fluid collection. BOWEL: No evidence of acute appendicitis. No stomach or bowel distension. There is descending and sigmoid diverticulosis without acute inflammatory change. LYMPH NODES: No enlarged mesenteric or retroperitoneal lymph nodes. VESSELS: Mild atherosclerotic changes of the aorta without aneurysm. Normal IVC. URINARY BLADDER: Poorly distended but otherwise normal urinary bladder. REPRODUCTIVE ORGANS: Question status post hysterectomy. ABDOMINAL WALL: No discrete abdominal or pelvic wall hernia. BONES: No lytic or blastic abnormality. CT/Abdomen/Pelvis without Cont IMPRESSION: 1. Nonobstructing right renal calculus. There is no other evidence of renal, ureteral or urinary bladder abnormality. 2. Descending and sigmoid diverticulosis without acute inflammatory change. Electronically Signed: Bryan Jean DO at 20:39 EDT ,
[2022-09-08 20:25] VITALS: RESP 16
--- NOTE | 2022-09-08 20:26 | ED.VIS.FEGU ---
HPI HPI - Female History of Present Illness Chief Complaint: Flank Pain Narrative Narrative: 47-year-old female presenting with left flank pain. She states this has been an ongoing issue. She was seen in urgent care yesterday and had a urinalysis done and states there was occult blood in this. She states she does not really have dysuria but states is a little uncomfortable for a second when she urinates. She denies history of kidney stones. She states that the pain is kind of in the mid umbilical region and in the lower back. No trauma. She has a history of diverticulitis but is not having diarrhea or left lower quadrant pain. She has not had a fever or chills. Denies vaginal complaints. Patient states he saw Dr. Puga on the and told that she does not have diverticulitis anymore. She reports that he felt this was not GI in nature [facility] Medical History Anemia Anxiety Diverticulitis Fatigue History of COVID-19 History of diverticulitis Hypertension Lymph node disorder Personal history of colonic polyps Shortness of breath Smoker Vaso vagal episode Wears partial dentures Home Medications alprazolam 0.25 mg tablet (Xanax) 1 mg PO TID 10/18/18 [History Last Taken 11/27/21] hydrochlorothiazide 12.5 mg capsule 12.5 mg PO DAILY 10/18/18 [History Last Taken Unknown] dicyclomine 10 mg capsule 20 mg PO Q6H PRN abdominal discomfort #90 caps 01/12/22 [Rx Last Taken Unknown] amoxicillin 500 mg-potassium clavulanate 125 mg tablet (Augmentin) 1 tab PO BID #14 tabs 03/17/22 [Rx Last Taken Unknown] fluconazole 200 mg tablet 200 mg PO DAILY #5 tabs 03/23/22 [Rx Last Taken Unknown] nicotine 7 mg/24 hr daily transdermal patch 1 patch transdermal Q24H #14 ea 06/11/22 [Rx Last Taken Unknown] Allergy/AdvReac Type Severity Reaction Status Date / Time Sulfa (Sulfonamide Allergy Shortness Verified 09/08/22 17:46 Antibiotics) of breath ciprofloxacin [From Cipro] AdvReac Other Verified 09/08/22 17:46 COLD MEDICATIONS Allergy Mild heart Uncoded 09/08/22 17:46 palpitations Surgical History History of hysterectomy History of tooth extraction History of tubal ligation Hx of bladder repair surgery Social History household members: spouse Smoking Status: Current every day smoker tobacco type: e-cigarettes alcohol intake: never substance use type: does not use ROS ROS ED Constitutional Constitutional ED: Denies chills or fever(s) Eyes Eyes: Denies change in vision ENT ENT ED: Denies rhinorrhea or sore throat Cardiovascular Cardiovascular: Denies chest pain or palpitations Respiratory/Chest Respiratory/Chest: Denies cough or dyspnea Gastrointestinal Gastrointestinal: Reports abdominal pain; Denies constipation, diarrhea, nausea or vomiting Genitourinary Genitourinary ED: Reports dysuria; Denies hematuria or urinary frequency Musculoskeletal Musculoskeletal: Reports other Details: Left flank pain ; Denies arthralgias or myalgias Integumentary Denies abscess or Abrasions Neurologic Neurologic: Denies headache(s) or paresthesias Psychiatric Psychiatric: Denies anxiety EXAM Physical Exam Const Vital Signs: 09/08/22 17:46 09/08/22 17:55 09/08/22 20:25 Temperature 97.7 F L Temperature Source Temporal Pulse Rate 112 H 112 H Respiratory Rate 18 18 16 Blood Pressure 134/102 H 138/99 H Blood Pressure Mean 112 112 Pulse Ox 99 99 Oxygen Delivery Method Room Air Room Air Positive well nourished General Appearance ED: NAD HEENT Reports moist mucous membranes Eyes PERRL and EOMs intact bilaterally Resp normal respiratory effort Cardio regular rate and regular rhythm GI normal to inspection, nondistended, normoactive bowel sounds, soft to palpation and non-distended Palpation: Negative for guarding or rigid Back/Spine no CVA tenderness Extremity normal to inspection Neuro oriented x3 and CN's II-XII intact bilaterally Sensorium / Orientation: alert Motor Exam: strength 5/5 throughout Psych mental status grossly normal Skin no rashes or lesions noted and no wounds MDM MDM MDM Narrative Medical decision making narrative: Blood work is obtained and her CBC and BMP are normal. Urinalysis negative for infection or occult blood. Given the patient's occult blood yesterday at the urgent care I will obtain a noncontrast CT to rule out kidney stone. Patient required no medications. On reevaluation patient requesting Tylenol which was given. CT of the abdomen pelvis without contrast shows nonobstructing right renal calculi. No blood in the urine. Patient counseled on findings. At this point I feel she is safe for discharge home. Return precautions discussed. Impression: 1. Abdominal pain 2. Left flank pain Lab Data Attestation: I reviewed the patient's lab results. Labs: Laboratory Results - last 24 hr 09/08/22 09/08/22 09/08/22 18:33 18:40 18:40 WBC 9.9 RBC 4.73 Hgb 14.7 Hct 42.0 MCV 88.8 MCH 31.1 MCHC 35.0 RDW Std Deviation 41.6 RDW Coeff of Carline 12.7 Plt Count 293 MPV 9.7 Immature Gran % (Auto) 0.200 Neut % (Auto) 52.2 Lymph % (Auto) 40.6 [place] % (Auto) 5.6 Eos % (Auto) 1.1 Baso % (Auto) 0.3 Absolute Neuts (auto) 5.2 Absolute Lymphs (auto) 4.02 Nucleated RBC % 0 Sodium 141 Potassium 3.5 Chloride 108 H Carbon Dioxide 27.0 Anion Gap 6 BUN 11 Creatinine 0.82 Estim Creat Clear Calc 70.91 Est GFR (MDRD) Af Amer 96 Est GFR (MDRD) Non-Af 80 BUN/Creatinine Ratio 13.4 Glucose 92 Calcium 9.2 Urine Color Yellow Urine Clarity Clear Urine pH 7.0 Ur Specific [place] 1.005 Urine Protein Negative Urine Glucose (UA) Normal Urine Ketones Negative Urine Occult Blood Negative Urine Nitrite Negative Urine Bilirubin Negative Urine Urobilinogen Normal Ur Leukocyte Esterase 25 H Urine RBC 0 SEEN Urine WBC 0 SEEN Ur Squamous Epith Cells 0-5 SEEN Urine Bacteria RARE Urine Mucus 0 SEEN Radiography Diagnostic Testing: Clinical Impression(s) from Imaging Studies Abdomen/Pelvis CT 09/08/22 20:07 IMPRESSION: 1. Nonobstructing right renal calculus. There is no other evidence of renal, ureteral or urinary bladder abnormality. 2. Descending and sigmoid diverticulosis without acute inflammatory change. Electronically Signed: Bryan Jean DO at 20:39 EDT Reading Location ID and State: [address] [place] [address] Tel [phone], Service support , Discharge Plan Triage Chief Complaint: Flank Pain ED Provider: Gerardo Gaming Dx/Rx/DC Orders Instructions: ED Abdominal Pain Unkn Cause Fem Prescriptions: No Action hydrochlorothiazide 12.5 mg capsule 12.5 mg PO DAILY alprazolam [Xanax] 0.25 mg tablet 1 mg PO TID fluconazole 200 mg tablet 200 mg PO DAILY Qty: 5 0RF nicotine 7 mg/24 hr patch 24 hour 1 patch transdermal Q24H Qty: 14 1RF dicyclomine 10 mg capsule 20 mg PO Q6H PRN (Reason: abdominal discomfort) Qty: 90 3RF amoxicillin-pot clavulanate [Augmentin] 500-125 mg tablet 1 tab PO BID Qty: 14 0RF Primary Care Provider: Trish Toney Referrals: Trish Toney MD [Primary Care Provider] - Disposition Disposition: Home, Self Care
[2022-09-08] MEDS: Acetaminophen 500 MG Tablet 1000 MG PO (21:37)
--- NOTE | 2022-09-10 13:20 | ED.RN ---
PT CALLED STATING SHE RECEIVED TWO CALLS FROM THE HOSPITAL SINCE HER EMERGENCY ROOM VISIT AND WAS CONCERNED THAT THERE WERE CHANGES OR NEW RESULTS THAT SHE WAS MISSING. THIS RN INFORMED HER AFTER LOOKING AT HER CHART THAT THERE WERE NO NEW RESULTS NOTED IN ANY NOTES EITHER BY PHYSICIANS OR NURSES. PATIENT VERBALIZES UNDERSTANDING
== END 2022-09-08 21:44 | disposition home or self-care (01) ==
PROVIDERS: Emergency Provider Student in an Organized Health Care Education/Training Program; PCP Internal Medicine; Visit Provider Student in an Organized Health Care Education/Training Program
DX: R10.9 Unspecified abdominal pain (principal); N20.0 Calculus of kidney; I10 Essential (primary) hypertension; Z86.16 Personal history of COVID-19
CPT/HCPCS: 74176; 80048; 81001; 85025; 99283; A4216

== ENCOUNTER 2023-04-07 09:13 | Day surgery (SDC) | payer MEDICARE, MEDICAID, SELFPAY ==
--- NOTE | 2023-04-07 | COLBX_PTH ---
PATIENT: GARY DELACRUZ LOC: EN U#:[id number] AGE/SX: 47/F ROOM: RE04/07/[address]: Dr. Miguel Puga DO : 1975 BED: DIS: 04/07/2023 SPEC #: [id number] RECD: 04/07/23 12:41 STATUS: ODALYS REPeyton #: [id number] TAMARA: 04/07/23 00:[address]: Miguel Puga DEPT: SURGICAL PATHOLOGY RECD BY: Nile Gonzáles ENTERED: 04/07/23 12:41 SP TYPE: COLON BX SUHAS DR: Dr. Trish Toney MD Tissues: A - Sigmoid colon biopsy B - Sigmoid colon biopsy Procedures: Surgery Specimen Level IV HEADER OPERATION: Colonoscopy (MAC) with biopsy PRE-OP DIAGNOSIS: History of colonic polyps, segmental colitis associated with diverticulosis TISSUE SUBMITTED: A ? Sigmoid polyp biopsy, B ? Sigmoid biopsy x2 MICROSCOPIC DIAGNOSIS A. Sigmoid polyp, biopsy: Fragments of colonic mucosa, no pathologic diagnosis. B. Sigmoid biopsy: Tubular adenoma. ROBERTO:brandon 04/08/2023 MICROSCOPIC DESCRIPTION Slides are reviewed. GROSS DESCRIPTION A - Received in fixative is one container labeled with the patient's name and designated sigmoid polyp biopsy. The specimen consists of two irregular fragments of light romo soft tissue that in aggregate measure 0.3 x 0.2 x 0.1 cm. The specimen is totally submitted in one cassette. B - Received in fixative is one container labeled with the patient's name and designated sigmoid biopsy. The specimen consists of two irregular fragments of light romo soft tissue that in aggregate measure 0.5 x 0.2 x 0.1 cm. The specimen is totally submitted in one cassette. / ROBERTO:brandon 04/07/2023 TC: CPT: 70535 x2
--- NOTE | 2023-04-07 09:25 | PCM.HP.BLA ---
History and Physical Date of Admission: 04/07/23 IZZY DELACRUZ, is a 47 F who presents to the office today for Follow up visit. Izzy established with this clinic 01.09.22 with self-referral for diverticulitis and duodenal issues as reported by her. Presented to [facility] ED 08.17.21 for evaluation of abdominal pain; she was diagnosed with diverticulitis 07.14.21 and started on augmentin which she did not tolerate well and was changed to flagyl. ED workup was without remarkable finding and she was discharged with instructions to keep upcoming apt with Dr. Andrade. Underwent colonoscopy 11.27.21 for evaluation of LLQ abdominal pain with Dr. Andrade. She reports one flare for which she presented to ED. Typically she has normal bowel movements with use of fiber supplement. ?Additional medical history includes anxiety, bipolar disorder, panic disorder, PTSD, HTN. Surgical history includes hysterectomy and bladder repair. ?Acute abdomen Xray 08.17.21 with increased fecal retention. Otherwise without remark. ?Colonoscopy 11.27.21 finding three polyps and diverticulosis. Polyps were tubular adenoma with rectal polyp tubular adenoma with focal high-grade dysplasia. [facility] ED presentation 01.12.22 for concerns of increased LLQ pain following intake of mozzarella sticks. After biochemical workup and imaging, it was determined she had no acute illness and advised to pickup Bentyl prescription as prescribed by this clinic. CT abd/pel 01.12.22?without acute or chronic findings. Plan last visit 06.11.22: Diverticulitis ? doing well SCAD ? increase fiber and start alkaline water and probiotic Personal history colonic polyps ? high grade dysplasia seen on one polyp. Repeat colonoscopy in several months. Exam Const General: cooperative, healthy appearing and no acute distress Nutritional Appearance: average body habitus Orientation: alert, awake and oriented x3 HENMT Head: normal to inspection Ears: hearing grossly normal bilaterally, external ears normal, TM's normal bilaterally and EAC's normal Nose: external nose normal, nares normal, septum normal and no nasal discharge Eyes General: appearance normal, both eyes and all related structures Neck Neck: normal visual inspection, full ROM, no lymphadenopathy, no meningeal signs and supple Neck mass: No Thyroid: thyroid normal Lymphatic: no lymphadenopathy noted Chest Chest palpation & inspection: normal inspection of the chest Resp Effort & Inspection: normal respiratory effort, able to speak in complete sentences and cough Quality of cough: wet (nonproductive) Auscultation: Bilateral: Clear to Auscultation Cardio Palpation: normal PMI Rate: tachycardic Rhythm: regular rhythm Heart Sounds: S1 normal, S2 normal, no gallops, no murmurs and no rubs Pulses: radial pulses present GI Inspection: normal to inspection Palpation: soft and no hepatosplenomegaly Skin General: no rashes or lesions noted Neuro General: patient alert, patient awake, patient oriented x3 and gait normal Cognition: normal cognition Speech: speech normal Gait: normal gait Motor: muscle tone normal throughout Sensory Exam: no sensory deficits noted Psych Appearance: grossly normal Mental Status: mental status grossly normal Mood: congruent mood Affect: normal affect Speech and Movement: speech and movement normal Attitude: cooperative Thought Process: normal Thought Content: normal Judgment: judgment good Quality Reporting Tobacco Screening ([facility] 138) Smoking Status: Current every day smoker Assessment and Plan Assessment and Plan (1) Personal history of colonic polyps: ?Status:?Chronic ?Plan: She will need to undergo a repeat colonoscopy because of her history of colon polyps.? She was explained alternatives, risk, benefits include not withstanding bleeding, infection, sepsis, perforation, need for emergent .? She will have an ASA of 1. 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 We have thought about putting her on an anti-inflammatory such as mesalamine based therapy for sigmoid colitis associated with diverticulosis to prevent her from developing recurrent diverticulitis.? She completed a course of antibiotic therapy recently and is clinically doing well.? When she follows back up in approximately 3 months we will see if we need to put her on prophylactic therapy with a 5-ASA medicine, budesonide or another anti-inflammatory.? For now we will continue with fiber based therapy and follow-up in 3 months. I have examined the patient and the H&P has been reviewed. There are no clinical changes since date of exam.
[2023-04-07 09:56] VITALS: BP 134/98; PULSE 110; RESP 17; TEMP 36.3; O2SAT 98; BMI 25.3
[2023-04-07] MEDS: Lactated Ringers 1,000 ML 15 ML IV (09:56)
[2023-04-07 11:02] VITALS: BP 108/80; BP 134/98; PULSE 86; RESP 14; TEMP 36.4; O2SAT 100
[2023-04-07 11:04] VITALS: BP 110/73; BP 134/98; PULSE 78; RESP 14; O2SAT 99
--- NOTE | 2023-04-07 11:05 | OP.COLON_ITS ---
Patient Name: Izzy Khan Procedure Date: 04/07/2023 10:32 AM Date of : 1975 Age: 47 Procedure: Colonoscopy Indications: Follow-up for history of adenomatous polyps in the colon Providers: Miguel Puga DO Referring MD: Miguel Puga DO Medicines: Monitored Anesthesia Care Patient Profile: This is a 47 year old female. Refer to note in patient chart for documentation of history and physical. Last Colonoscopy: within the past 3 years. Complications: No immediate complications. Procedure: Pre-Anesthesia Assessment: - Prior to the procedure, a History and Physical was performed, and patient medications and allergies were reviewed. The risks and benefits of the procedure and the sedation options and risks were discussed with the patient. All questions were answered and informed consent was obtained. Patient identification and proposed procedure were verified by the physician. Mental Status Examination: normal. Prophylactic Antibiotics: The patient does not require prophylactic antibiotics. Prior Anticoagulants: The patient has taken no previous anticoagulant or antiplatelet agents. ASA Grade Assessment: II - A patient with mild systemic disease. After reviewing the risks and benefits, the patient was deemed in satisfactory condition to undergo the procedure. The anesthesia plan was to use monitored anesthesia care (MAC). Immediately prior to administration of medications, the patient was re-assessed for adequacy to receive sedatives. The heart rate, respiratory rate, oxygen saturations, blood pressure, adequacy of pulmonary ventilation, and response to care were monitored throughout the procedure. The physical status of the patient was re-assessed after the procedure. After I obtained informed consent, the scope was passed under direct vision. Throughout the procedure, the patient's blood pressure, pulse, and oxygen saturations were monitored continuously. The pediatric colonoscope was introduced through the anus and advanced to the cecum, identified by the appendiceal orifice, ileocecal valve and palpation. The colonoscopy was performed without difficulty. The patient tolerated the procedure well. The quality of the bowel preparation was adequate. Scope In: 10:42:27 AM Scope Withdrawal Time 0 hours 6 minutes 34 seconds Scope Out: 10:57:01 AM Total Procedure Duration Time 0 hours 14 minutes 34 seconds Findings: The perianal and digital rectal examinations were normal. Two sessile polyps were found in the sigmoid colon. The polyps were 1 to 2 mm in size. These polyps were removed with a cold snare. Resection and retrieval were complete. Verification of patient identification for the specimen was done. Estimated blood loss was minimal. Multiple small and large-mouthed diverticula were found in the recto-sigmoid colon and sigmoid colon. The exam was otherwise without abnormality on direct and retroflexion views. Impression: - Two 1 to 2 mm polyps in the sigmoid colon, removed with a cold snare. Resected and retrieved. - Diverticulosis in the recto-sigmoid colon and in the sigmoid colon. - The examination was otherwise normal on direct and retroflexion views. Recommendation: - Discharge patient to home. - Resume previous diet. - Continue present medications. - Await pathology results. - Repeat colonoscopy in 3 years for surveillance. Procedure Code(s): --- Professional --- 11120, Colonoscopy, flexible; with removal of tumor(s), polyp(s), or other lesion(s) by snare technique CPT copyright 2017 [employer]. All rights reserved. The codes documented in this report are preliminary and upon powder mill operator review may be revised to meet current compliance requirements. Miguel Puga DO 04/07/2023 11:05:09 AM This report has been signed electronically. Number of Addenda: 0 Note Initiated On: 04/07/2023 10:32 AM
--- NOTE | 2023-04-07 11:06 | OP.CCLET_ITS ---
04/07/2023 Trish Toney [address] [place] [address] Re : Colonoscopy procedure for Izzy Khan Dear Dr. Toney This procedure was performed on Friday, April 07, 2023. My impressions and recommendations are as follows: Impressions : - Two 1 to 2 mm polyps in the sigmoid colon, removed with a cold snare. Resected and retrieved. - Diverticulosis in the recto-sigmoid colon and in the sigmoid colon. - The examination was otherwise normal on direct and retroflexion views. Recommendations : - Discharge patient to home. - Resume previous diet. - Continue present medications. - Await pathology results. - Repeat colonoscopy in 3 years for surveillance. My findings are described in the full procedure note, which is enclosed. If I can be of further assistance, please feel free to contact me at . Sincerely, Miguel Puga, 04/07/2023 11:05:09 AM This report has been signed electronically.
[2023-04-07 11:10] VITALS: BP 108/80; BP 134/98; PULSE 76; RESP 16; O2SAT 100
[2023-04-07 11:15] VITALS: BP 116/80; BP 134/98; PULSE 74; RESP 14; TEMP 36.4; O2SAT 99
[2023-04-07 11:46] VITALS: BP 134/98
== END 2023-04-07 11:49 | disposition home or self-care (01) ==
LOC: EN 09:14 → AC 09:20
PROVIDERS: PCP Internal Medicine; Referring Provider Internal Medicine Gastroenterology; Visit Provider Internal Medicine Gastroenterology
PROC: 0DJD8ZZ Inspection of Lower Intestinal Tract, Via Natural or Artificial Opening Endoscopic (ICD-10-PCS; CPT 45378; principal; 2023-04-07 10:25)
DX: K57.30 Diverticulosis of large intestine without perforation or abscess without bleeding (principal); K63.5 Polyp of colon; Z86.010 Personal history of colon polyps; K57.92 Diverticulitis of intestine, part unspecified, without perforation or abscess without bleeding; F17.200 Nicotine dependence, unspecified, uncomplicated
CPT/HCPCS: 45385; 88305; J7120; J2405

== ENCOUNTER 2023-04-28 12:31 | Emergency (ER) | payer MEDICARE, MEDICAID, SELFPAY ==
[2023-04-28 12:32] VITALS: BP 145/99; PULSE 110; RESP 18; TEMP 36.1; O2SAT 100; BMI 26.1
--- NOTE | 2023-04-28 13:59 | EDS_ITS ---
HPI History of Present Illness Chief Complaint: Other, Pain/Inj Narrative Narrative: 47-year-old female presenting with cramping in her legs and in her arms. This started after she had a colonoscopy done on 04/07/2023. Patient states it is worse at night. Sometimes it feels like it is burning. She states she discussed this with Dr. Puga who thought it might be her potassium. She then called her primary care physician who checked a BMP yesterday. She states all of her kidney function electrolytes are normal. She is able to show this to me. She states that she has an appointment again with her PCP next week but does not understand why she is having cramping. [facility] Medical History Acute bronchitis, unspecified Anemia Anxiety Contact with and (suspected) exposure to other viral communicable diseases Diverticulitis Fatigue History of COVID-19 History of diverticulitis Hypertension Lymph node disorder Personal history of colonic polyps Shortness of breath Smoker Vaso vagal episode Wears partial dentures Home Medications alprazolam 0.25 mg tablet (Xanax) 1 mg PO TID 10/18/18 [History Last Taken 11/27/21] hydrochlorothiazide 12.5 mg capsule 12.5 mg PO DAILY 10/18/18 [History Last Taken Unknown] ropinirole 0.25 mg tablet 0.25 mg PO QHS 2 days #2 tabs 04/28/23 [Rx Last Taken Unknown] ropinirole 0.5 mg tablet 0.5 mg PO QHS #5 tabs 04/28/23 [Rx Last Taken Unknown] Allergy/AdvReac Type Severity Reaction Status Date / Time Sulfa (Sulfonamide Allergy Shortness Verified 04/15/23 11:04 Antibiotics) of breath ciprofloxacin [From Cipro] AdvReac Other Verified 04/15/23 11:04 COLD MEDICATIONS Allergy Mild heart Uncoded 04/15/23 11:04 palpitations Surgical History History of hysterectomy History of tooth extraction History of tubal ligation Hx of bladder repair surgery Hx of colonoscopy Social History household members: spouse Smoking Status: Current every day smoker tobacco type: cigarettes alcohol intake: never substance use type: does not use ROS ROS ED Constitutional Constitutional ED: Denies chills, fever(s) or sweats Eyes Eyes: Denies blurry vision or change in vision ENT ENT ED: Denies ear pain or sore throat Cardiovascular Cardiovascular: Denies chest pain, palpitations or racing heartbeat Respiratory/Chest Respiratory/Chest: Denies cough, dyspnea or sputum Gastrointestinal Gastrointestinal: Denies abdominal pain, constipation, diarrhea, nausea or vomiting Genitourinary Genitourinary ED: Denies dysuria, hematuria or urinary frequency Musculoskeletal Musculoskeletal: Reports myalgias; Denies arthralgias Integumentary Denies abscess, Abrasions or rash Neurologic Neurologic: Denies headache(s), paresthesias or weakness Psychiatric Psychiatric: Denies anxiety, depression, suicidal ideation or suicidal thoughts Endocrine Endocrinology: Denies polydipsia or polyuria EXAM Physical Exam Const Vital Signs: 04/28/23 12:32 04/28/23 12:42 Temperature 97 F L Temperature Source Temporal Pulse Rate 110 H Respiratory Rate 18 Respiratory Effort Normal Non-Labored Respiratory Pattern Normal Blood Pressure 145/99 H Blood Pressure Mean 114 Pulse Ox 100 Oxygen Delivery Method Room Air Positive well nourished General Appearance ED: NAD; Negative for pallor HEENT Reports moist mucous membranes Eyes PERRL and EOMs intact bilaterally Resp normal respiratory effort and clear to auscultation bilaterally Auscultation: Negative for rales, rhonchi or wheezes Cardio regular rhythm Rate: tachycardic Neuro oriented x3 and CN's II-XII intact bilaterally Sensorium / Orientation: alert Motor Exam: strength 5/5 throughout Psych mental status grossly normal Skin General Skin Exam: Negative for jaundice or pallor MDM MDM MDM Narrative Medical decision making narrative: Patient presenting with muscle cramps its in the bilateral upper and lower extremities. She states it feels like they are heavy. No rashes. Patient already had a BMP which she showed me was normal. She is concerned and wants different lab work checked. Up-to-date I will check a CBC, CMP, magnesium, TSH. Patient does not want IV fluids because she drinks plenty of water from what she tells me. CBC shows a normal white blood cell count of 9.2. Hemoglobin 15.8, platelets 278. Renal function and electrolytes within normal limits. LFTs are normal. TSH is normal. CPK is normal. Urinalysis negative for infection or other acute findings. I will start her on something to help with restless legs and see if that helps her this week. She can follow-up with her PCP next week for results. Return precautions discussed. Impression: 1. Muscle cramps 2. Restless leg Lab Data Attestation: I reviewed the patient's lab results. Labs: Laboratory Results - last 24 hr 04/28/23 04/28/23 04/28/23 14:08 14:08 14:08 WBC 10.2 RBC 5.21 Hgb 15.8 H Hct 46.9 MCV 90.0 MCH 30.3 MCHC 33.7 RDW Std Deviation 43.4 RDW Coeff of Carline 13.2 Plt Count 278 MPV 10.0 Immature Gran % (Auto) 0.300 Neut % (Auto) 56.8 Lymph % (Auto) 36.8 [place] % (Auto) 5.1 Eos % (Auto) 0.7 Baso % (Auto) 0.3 Absolute Neuts (auto) 5.8 Absolute Lymphs (auto) 3.75 Nucleated RBC % 0 Sodium 140 Potassium 3.6 Chloride 107 Carbon Dioxide 30.0 Anion Gap 3 L BUN 11 Creatinine 0.75 Estim Creat Clear Calc 77.53 Est GFR (MDRD) Af Amer 106 Est GFR (MDRD) Non-Af 88 BUN/Creatinine Ratio 14.6 Glucose 89 Calcium 9.3 Magnesium 2.3 Total Bilirubin 0.30 AST 17 ALT 28 Alkaline Phosphatase 70 Total Creatine Kinase Total Protein 8.1 Albumin 4.3 Globulin 3.8 Albumin/Globulin Ratio 1.1 TSH 1.59 Urine Color Straw Urine Clarity Sl. Cloudy Urine pH 7.0 Ur Specific [place] 1.005 Urine Protein Negative Urine Glucose (UA) Normal Urine Ketones Negative Urine Occult Blood Negative Urine Nitrite Negative Urine Bilirubin Negative Urine Urobilinogen Normal Ur Leukocyte Esterase Negative Urine RBC 0 SEEN Urine WBC 0 SEEN Ur Squamous Epith Cells 0 SEEN Urine Bacteria 0 SEEN Urine Mucus 0 SEEN 04/28/23 14:08 WBC RBC Hgb Hct MCV MCH MCHC RDW Std Deviation RDW Coeff of [place] Plt Count MPV Immature Gran % (Auto) Neut % (Auto) Lymph % (Auto) [place] % (Auto) Eos % (Auto) Baso % (Auto) Absolute Neuts (auto) Absolute Lymphs (auto) Nucleated RBC % Sodium Potassium Chloride Carbon Dioxide Anion Gap BUN Creatinine Estim Creat Clear Calc Est GFR (MDRD) Af Amer Est GFR (MDRD) Non-Af BUN/Creatinine Ratio Glucose Calcium Magnesium Total Bilirubin AST ALT Alkaline Phosphatase Total Creatine Kinase 58 Total Protein Albumin Globulin Albumin/Globulin Ratio TSH Urine Color Urine Clarity Urine pH Ur Specific [place] Urine Protein Urine Glucose (UA) Urine Ketones Urine Occult Blood Urine Nitrite Urine Bilirubin Urine Urobilinogen Ur Leukocyte Esterase Urine RBC Urine WBC Ur Squamous Epith Cells Urine Bacteria Urine Mucus Discharge Plan Triage Chief Complaint: Other, Pain/Inj ED Provider: Gerardo Gaming Dx/Rx/DC Orders Instructions: RLS, ED Muscle Spasm Prescriptions: New ropinirole 0.25 mg tablet 0.25 mg PO QHS 2 Days Qty: 2 0RF ropinirole 0.5 mg tablet 0.5 mg PO QHS Qty: 5 0RF Rx Instructions: administer 1-3 hours before bedtime No Action hydrochlorothiazide 12.5 mg capsule 12.5 mg PO DAILY alprazolam [Xanax] 0.25 mg tablet 1 mg PO TID Primary Care Provider: Trish Toney Referrals: Trish Toney MD [Primary Care Provider] - Disposition Disposition: Home, Self Care
[2023-04-28 14:15] LABS: Bacteria 0 SEEN /hpf (None Seen); Mucous, Urine 0 SEEN /hpf (<or=2+); Red Blood Cells-Urine 0 SEEN /hpf (0-5); Squamous Epithelial Cells - UA 0 SEEN /hpf (5-10); White Blood Cells 0 SEEN /hpf (0-5)
[2023-04-28 14:16] LABS: Absolute Lymphocyte Count 3.75 X10^3/uL (0.83-4.51); Absolute Neutrophil Count 5.8 X10^3/uL (2.0-7.7); Basophil# 0.03 X10^3/uL; Basophil% 0.3 % (0-1); Eosinophil# 0.07 X10^3/uL; Eosinophils% 0.7 % (0-5); Hematocrit 46.9 % (37-47); Hemoglobin 15.8 g/dL (12.0-15.0); Lymphocyte # 3.75 X10^3/ul (0.83-4.51); Lymphocyte % 36.8 % (19-41); Mean Corp Hgb Conc 33.7 g/dL (32-36); Mean Corpuscular Hgb 30.3 pg (27.0-32.0); Monocyte# 0.52 X10^3/uL; Monocyte% 5.1 % (0-10); NRBC Flagged by Analyzer 0 % (0-5); Neutrophil # 5.79 X10^3/uL (2.7-7.7); Neutrophil % 56.8 % (47-70); Platelet Count 278 K/mm3 (150-450); RBC Distribution Width CV 13.2 % (11.6-14.6); RBC Distribution Width SD 43.4 fl (35.1-43.9); Red Blood Count 5.21 M/mm3 (4.2-5.4); White Blood Count 10.2 K/mm3 (4.4-11.0)
[2023-04-28 14:17] LABS: Color, Urine Straw (Yellow); Glucose, Dipstick Normal (Normal); Ketone-Dipstick Negative (Negative); Leukocyte Esterase-Dipstick Negative /ul (Negative); Nitrite-Dipstick Negative (Negative); Occult Blood-Urine Negative /ul (Negative); Protein-Dipstick Negative (Negative); Specific Gravity, Urine 1.005 (1.002-1.030); Urine Bilirubin Dipstick Negative (Negative); Urine Clarity Sl. Cloudy (Clear); Urine Urobilinogen Normal (Normal)
[2023-04-28 14:46] LABS: Albumin, Serum 4.3 g/dL (3.2-5.0); BUN 11 mg/dL (7-18); BUN/Creat Ratio 14.6 RATIO (10-20); Creatinine, Serum 0.75 mg/dL (0.55-1.02); EST Glomerular Filtration Rate 88 mL/min (>60); Est Glom Filt Rate - Afr Amer 106 mL/min (>60); Estimated Creatinine Clearance 77.53 ml/min; Glucose 89 mg/dL (74-106); Protein, Total 8.1 g/dL (6.4-8.2)
[2023-04-28 14:47] LABS: ALB/GLOB Ratio 1.1 RATIO (0.9-2.4); AST(SGOT) 17 U/L (15-37); Alanine Aminotransfer ALT/SGPT 28 U/L (13-56); Alkaline Phosphatase 70 U/L (45-117); Anion Gap 3 (5-15); Calcium,Total 9.3 mg/dL (8.5-10.1); Chloride 107 mmol/L (98-107); Globulin 3.8 g/dL (2.2-4.2); Magnesium 2.3 mg/dL (1.6-2.6); Potassium 3.6 mmol/L (3.5-5.1); Sodium Level 140 mmol/L (136-145); Thyroid Stim Hormone (TSH) 1.59 uIU/mL (0.358-3.74)
[2023-04-28 15:52] LABS: CPK Total, Creatine Kinase 58 U/L (26-192)
== END 2023-04-28 16:19 | disposition home or self-care (01) ==
PROVIDERS: Emergency Provider Student in an Organized Health Care Education/Training Program; PCP Internal Medicine; Visit Provider Student in an Organized Health Care Education/Training Program
DX: R25.2 Cramp and spasm (principal); I10 Essential (primary) hypertension; G25.81 Restless legs syndrome; F41.9 Anxiety disorder, unspecified; Z79.899 Other long term (current) drug therapy; Z90.710 Acquired absence of both cervix and uterus; F17.210 Nicotine dependence, cigarettes, uncomplicated
CPT/HCPCS: 80053; 81001; 82550; 83735; 84443; 85025; 99282; A4216

== ENCOUNTER 2023-07-27 12:56 | Emergency (ER) | payer MEDICARE, MEDICAID, SELFPAY ==
[2023-07-27 12:58] VITALS: BP 134/100; PULSE 99; RESP 18; TEMP 36.3; O2SAT 100
[2023-07-27 14:21] LABS: Absolute Neutrophil Count 6.1 X10^3/uL (2.0-7.7); Basophil# 0.03 X10^3/uL; Basophil% 0.3 % (0-1); Eosinophil# 0.09 X10^3/uL; Eosinophils% 0.8 % (0-5); Hematocrit 46.6 % (37-47); Lymphocyte % 40.2 % (19-41); Mean Corp Hgb Conc 34.3 g/dL (32-36); Mean Corpuscular Hgb 30.7 pg (27.0-32.0); Mean Corpuscular Volume 89.3 fL (81-99); Mean Platelet Vol. 9.8 fl (6.2-12.0); Monocyte# 0.56 X10^3/uL; Monocyte% 4.9 % (0-10); NRBC Flagged by Analyzer 0 % (0-5); Neutrophil # 6.13 X10^3/uL (2.7-7.7); Neutrophil % 53.5 % (47-70); Platelet Count 331 K/mm3 (150-450); RBC Distribution Width CV 12.7 % (11.6-14.6); RBC Distribution Width SD 41.5 fl (35.1-43.9); Red Blood Count 5.22 M/mm3 (4.2-5.4); White Blood Count 11.4 K/mm3 (4.4-11.0)
[2023-07-27 14:31] LABS: Internal QC Validated? YES +Cl - CLEAR BKGD; Pregnancy, Serum, hCG Quali. NEGATIVE Negative
[2023-07-27 14:37] LABS: ALB/GLOB Ratio 1.1 RATIO (0.9-2.4); AST(SGOT) 9 U/L (15-37); Alanine Aminotransfer ALT/SGPT 21 U/L (13-56); Albumin, Serum 4.4 g/dL (3.2-5.0); Alkaline Phosphatase 76 U/L (45-117); Anion Gap 4 (5-15); BUN 11 mg/dL (7-18); Calcium,Total 8.9 mg/dL (8.5-10.1); Chloride 105 mmol/L (98-107); Creatinine, Serum 0.92 mg/dL (0.55-1.02); EST Glomerular Filtration Rate 70 mL/min (>60); Est Glom Filt Rate - Afr Amer 84 mL/min (>60); Globulin 3.9 g/dL (2.2-4.2); Glucose 94 mg/dL (74-106); Potassium 3.2 mmol/L (3.5-5.1); Protein, Total 8.3 g/dL (6.4-8.2); Sodium Level 139 mmol/L (136-145)
[2023-07-27 15:16] LABS: Mucous, Urine 0 SEEN /hpf (<or=2+); Red Blood Cells-Urine 0 SEEN /hpf (0-5)
--- NOTE | 2023-07-27 15:22 | EX.ED.DYSGE1 ---
HPI History of Present Illness Chief Complaint: Abd Pain Informant: patient Narrative Narrative: 42-year-old female presenting to the emergency room with chief complaint of left lower quadrant abdominal pain. Patient states the pain began Wednesday evening. She notes that last week she had some mild constipation treated at home. She notes the pain is stayed about the same. She notes temperatures around 99-100. She states that she has not had any blood in the stool or any diarrhea. No urinary symptoms. No URI symptoms. She is follows with Dr. Puga and has had follow-up colonoscopy. No prior history of diverticular abscess or perforation. [facility] Medical History Acute bronchitis, unspecified Anemia Anxiety Contact with and (suspected) exposure to other viral communicable diseases Diverticulitis Fatigue History of COVID-19 History of diverticulitis Hypertension Lymph node disorder Panic disorder Personal history of colonic polyps Shortness of breath Smoker Vaso vagal episode Wears partial dentures Home Medications hydrochlorothiazide 12.5 mg capsule 12.5 mg PO DAILY 10/18/18 [History Last Taken Unknown] alprazolam 1 mg tablet 1 mg PO TID 04/29/23 [History Last Taken Unknown] tobramycin 0.3 % eye drops 2 drp ophthalmic (eye) Q4H #5 mL 06/15/23 [Rx Last Taken Unknown] amoxicillin 875 mg-potassium clavulanate 125 mg tablet 875 mg (0.875 x 875-125 mg) PO Q12H #20 TABLETS 07/27/23 [Rx Last Taken Unknown] ondansetron 4 mg disintegrating tablet 4 mg PO Q6H PRN PRN Nausea #10 tabs 07/27/23 [Rx Last Taken Unknown] Allergy/AdvReac Type Severity Reaction Status Date / Time Sulfa (Sulfonamide Allergy Shortness Verified 07/27/23 12:58 Antibiotics) of breath ciprofloxacin [From Cipro] AdvReac Other Verified 07/27/23 12:58 Surgical History History of hysterectomy History of tooth extraction History of tubal ligation Hx of bladder repair surgery Hx of colonoscopy Social History household members: spouse Smoking Status: Current every day smoker tobacco type: cigarettes alcohol intake: never substance use type: does not use ROS ROS ED Constitutional Constitutional ED: Reports fever(s); Denies chills or weight loss Eyes Eyes: Denies change in vision or diplopia ENT ENT ED: Denies ear pain, rhinorrhea or sore throat Cardiovascular Cardiovascular: Denies chest pain, orthopnea, palpitations or racing heartbeat Respiratory/Chest Respiratory/Chest: Denies cough, dyspnea or orthopnea Gastrointestinal Gastrointestinal: Reports abdominal pain and constipation; Denies diarrhea, nausea or vomiting Genitourinary Genitourinary ED: Denies dysuria, hematuria or urinary frequency Musculoskeletal Musculoskeletal: Denies arthralgias or myalgias Integumentary Denies abscess or rash Neurologic Neurologic: Denies headache(s) or weakness Psychiatric Psychiatric: Denies anxiety, depression, suicidal ideation or suicidal thoughts Endocrine Endocrinology: Denies polydipsia, polyphagia or polyuria Allergic/Immunologic Allergic/Immunologic ED: Denies mouth swelling, tongue swelling or urticaria EXAM Physical Exam Const Vital Signs: 07/27/23 12:58 Temperature 97.3 F L Temperature Source Temporal Pulse Rate 99 Respiratory Rate 18 Blood Pressure 134/100 H Blood Pressure Mean 111 Pulse Ox 100 Oxygen Delivery Method Room Air Positive well nourished and well developed General Appearance ED: well developed HEENT Reports normocephalic, head/scalp atraumatic and moist mucous membranes Eyes PERRL and EOMs intact bilaterally Neck no lymphadenopathy, supple and no JVD Resp normal respiratory effort and clear to auscultation bilaterally Cardio regular rate, regular rhythm and no murmurs GI Auscultation: normoactive bowel sounds Palpation: soft and tender LLQ; Negative for guarding or rebound tenderness present Back/Spine no CVA tenderness and normal ROM Extremity normal to inspection General Extremety ED: Negative for edema General Extremity: Negative for edema Neuro oriented x3 and CN's II-XII intact bilaterally Sensorium / Orientation: alert Motor Exam: strength 5/5 throughout Psych mental status grossly normal Mood & Affect: Negative for depressed or tearful Skin no rashes or lesions noted and no wounds MDM MDM MDM Narrative Medical decision making narrative: Patient's white count is elevated 11.4. CMP showed a potassium of 3.2.. Toes neck of which was obtained through nursing protocol. Urinalysis is negative for infection. CT of the abdomen pelvis is consistent with some mild sigmoid diverticulitis without evidence of perforation or abscess formation. Patient received Tylenol as she requested for headache. The patient also received Zofran for nausea. Patient will be placed on Augmentin as she has an allergy to Cipro. Medication side effects and risk benefits were discussed with the patient. She may discuss these further with pharmacist as needed. Lab Data Attestation: I reviewed the patient's lab results. Labs: Laboratory Results - last 24 hr 07/27/23 07/27/23 14:15 15:04 WBC 11.4 H RBC 5.22 Hgb 16.0 H Hct 46.6 MCV 89.3 MCH 30.7 MCHC 34.3 RDW Std Deviation 41.5 RDW Coeff of Carline 12.7 Plt Count 331 MPV 9.8 Immature Gran % (Auto) 0.300 Neut % (Auto) 53.5 Lymph % (Auto) 40.2 [place] % (Auto) 4.9 Eos % (Auto) 0.8 Baso % (Auto) 0.3 Absolute Neuts (auto) 6.1 Absolute Lymphs (auto) 4.60 H Nucleated RBC % 0 Sodium 139 Potassium 3.2 L Chloride 105 Carbon Dioxide 30.0 Anion Gap 4 L BUN 11 Creatinine 0.92 Est GFR (MDRD) Af Amer 84 Est GFR (MDRD) Non-Af 70 BUN/Creatinine Ratio 12.0 Glucose 94 Calcium 8.9 Total Bilirubin 0.40 AST 9 L ALT 21 Alkaline Phosphatase 76 Total Protein 8.3 H Albumin 4.4 Globulin 3.9 Albumin/Globulin Ratio 1.1 Serum , Qual NEGATIVE Urine Color Yellow Urine Clarity Clear Urine pH 6.0 Ur Specific [place] 1.010 Urine Protein Negative Urine Glucose (UA) Normal Urine Ketones Negative Urine Occult Blood 10 H Urine Nitrite Negative Urine Bilirubin Negative Urine Urobilinogen Normal Ur Leukocyte Esterase Negative Urine RBC 0 SEEN Urine WBC 0 SEEN Ur Squamous Epith Cells 0-5 SEEN Urine Bacteria RARE Urine Mucus 0 SEEN Radiography Diagnostic Testing: Clinical Impression(s) from Imaging Studies Abdomen/Pelvis CT 07/27/23 16:00 IMPRESSION: Minor diverticular disease of the colon without evidence for acute diverticulitis No acute abnormalities with findings as above. Electronically Signed: Carrington Peralta MD at 16:41 EDT , Discharge Plan Triage Chief Complaint: Abd Pain ED Provider: Byron Wadsworth Dx/Rx/DC Orders Clinical Impression: Sigmoid diverticulitis, Abdominal pain Instructions: ED Diverticulitis Prescriptions: New ondansetron [ondansetron] 4 mg tablet,disintegrating 4 mg PO Q6H PRN PRN (Reason: Nausea) Qty: 10 0RF amoxicillin-pot clavulanate [amoxicillin-pot clavulanate] 875-125 mg tablet 875 mg PO Q12H Qty: 20 0RF No Action hydrochlorothiazide 12.5 mg capsule 12.5 mg PO DAILY alprazolam 1 mg tablet 1 mg PO TID tobramycin 0.3 % drops 2 drp ophthalmic (eye) Q4H Qty: 5 1RF Primary Care Provider: Trish Toney Referrals: Trish Toney MD [Primary Care Provider] - As Needed Miguel Puga DO [Med Staff - Active Staff] - Keep Bernice appointment (Please advise Dr. Puga of today's visit diagnosis) Disposition Disposition: Home, Self Care
[2023-07-27] MEDS: Acetaminophen 500 MG Tablet 1000 MG PO (15:25)
[2023-07-27 15:30] LABS: Color, Urine Yellow (Yellow); Glucose, Dipstick Normal (Normal); Ketone-Dipstick Negative (Negative); Leukocyte Esterase-Dipstick Negative /ul (Negative); Nitrite-Dipstick Negative (Negative); Occult Blood-Urine 10 /ul (Negative); Protein-Dipstick Negative (Negative); Urine Bilirubin Dipstick Negative (Negative); Urine Clarity Clear (Clear); Urine Urobilinogen Normal (Normal)
[2023-07-27 15:43] LABS: Squamous Epithelial Cells - UA 0-5 SEEN /hpf (5-10)
[2023-07-27 15:44] LABS: Bacteria RARE /hpf (None Seen); White Blood Cells 0 SEEN /hpf (0-5)
--- NOTE | 2023-07-27 16:00 | CT_ITS ---
STUDY: CT ABDOMEN AND PELVIS WITH CONTRAST REASON FOR EXAM: Female, 48 years old. LLQ pain Diverticulitis RADIATION DOSAGE (If Supplied By Facility): CTDIvol = ( 10.70 ) mGy, DLP = ( 603.78 ) mGycm TECHNIQUE: Transaxial images were obtained from the dome of the diaphragm to the symphysis pubis without oral contrast. IV 100mL Isovue-300 was administered. Sagittal and coronal images were reconstructed. Individualized dose optimization techniques were used for this CT. COMPARISON: September 08, 2022. FINDINGS: Minor atelectasis within the dependent portion of the lungs. The visualized portions of the heart are within normal limits. Normal liver. Normal gallbladder and extrahepatic biliary system. Normal spleen. Normal pancreas. Normal bilateral adrenal glands. No evidence for renal obstruction. Small hypoattenuated density in the left kidney which are too small to characterize possibly representing a cyst. This may be further assessed with ultrasound or MRI if clinically warranted Normal stomach... Normal small intestine. Minor diverticular disease of the distal descending and sigmoid colon without evidence for acute diverticulitis . No evidence for acute appendicitis. Normal abdominal aorta. Normal inferior vena cava. Normal retroperitoneum. Normal urinary bladder. Findings suggestive of supracervical hysterectomy however clinical correlation is recommended Normal abdominal wall. Normal osseous structures. CT/Abdomen/Pelvis W IV Cont ONLY IMPRESSION: Minor diverticular disease of the colon without evidence for acute diverticulitis No acute abnormalities with findings as above. Electronically Signed: Carrington Peralta MD at 16:41 EDT ,
[2023-07-27] MEDS: Ondansetron ODT 4 MG Tablet PO (16:42)
== END 2023-07-27 17:34 | disposition home or self-care (01) ==
PROVIDERS: Emergency Provider Emergency Medicine; PCP Internal Medicine; Visit Provider Emergency Medicine
DX: K57.32 Diverticulitis of large intestine without perforation or abscess without bleeding (principal); I10 Essential (primary) hypertension; R11.0 Nausea; R10.9 Unspecified abdominal pain; F41.9 Anxiety disorder, unspecified; Z79.899 Other long term (current) drug therapy; Z90.710 Acquired absence of both cervix and uterus; F17.210 Nicotine dependence, cigarettes, uncomplicated
CPT/HCPCS: 74177; 80053; 81001; 84703; 85025; 99282; Q9967; A4216

== ENCOUNTER 2023-08-09 17:47 | Emergency (ER) | payer MEDICARE, MEDICAID, SELFPAY ==
[2023-08-09 17:48] VITALS: BP 136/100; PULSE 92; RESP 16; TEMP 36.4; O2SAT 100; BMI 25.7
== END 2023-08-09 18:02 | disposition left against medical advice (07) ==
LOC: ED 18:03
PROVIDERS: PCP Internal Medicine
DX: R10.9 Unspecified abdominal pain (principal)

== ENCOUNTER 2023-08-10 12:34 | Emergency (ER) | payer MEDICARE, MEDICAID, SELFPAY ==
[2023-08-10 12:35] VITALS: BP 129/97; PULSE 107; RESP 18; TEMP 36.6; O2SAT 98; BMI 24.7
[2023-08-10 13:12] LABS: Absolute Lymphocyte Count 4.46 X10^3/uL (0.83-4.51); Absolute Neutrophil Count 6.5 X10^3/uL (2.0-7.7); Basophil# 0.03 X10^3/uL; Basophil% 0.3 % (0-1); Eosinophils% 0.8 % (0-5); Hematocrit 43.2 % (37-47); Hemoglobin 14.7 g/dL (12.0-15.0); Lymphocyte # 4.46 X10^3/ul (0.83-4.51); Lymphocyte % 37.9 % (19-41); Mean Corpuscular Hgb 30.3 pg (27.0-32.0); Mean Corpuscular Volume 89.1 fL (81-99); Mean Platelet Vol. 10.1 fl (6.2-12.0); Monocyte# 0.64 X10^3/uL; Monocyte% 5.4 % (0-10); NRBC Flagged by Analyzer 0 % (0-5); Neutrophil # 6.51 X10^3/uL (2.7-7.7); Neutrophil % 55.3 % (47-70); Platelet Count 297 K/mm3 (150-450); RBC Distribution Width CV 12.7 % (11.6-14.6); RBC Distribution Width SD 41.6 fl (35.1-43.9); Red Blood Count 4.85 M/mm3 (4.2-5.4); White Blood Count 11.8 K/mm3 (4.4-11.0)
--- NOTE | 2023-08-10 13:12 | EX.ED.GENINJ ---
HPI <MAO Zurita - Last Filed: 08/10/23 15:43> History of Present Illness Chief Complaint: Abd Pain Narrative Narrative: Patient presenting today with left lower quadrant pain that radiates to her left lower back that she has had since Wednesday. She reports that the pain is waxing and waning. She denies having any urinary symptoms, fever, chills, nausea, and vomiting. She reports that she had a right sided stone found in her kidney in the past but has never passed a kidney stone. She was seen here on 07/27 and was treated for diverticulitis with 10 days of Augmentin due to similar symptoms. She reports that her pain did improve over that time. She has not had any diarrhea. No bladder bladder incontinence, no saddle paresthesia. Past abdominal/pelvic surgeries include hysterectomy, tubal ligation, and bladder lift. PFSH <MAO Zurita - Last Filed: 08/10/23 15:43> [facility] Medical History Acute bronchitis, unspecified Anemia Anxiety Contact with and (suspected) exposure to other viral communicable diseases Diverticulitis Fatigue History of COVID-19 History of diverticulitis Hypertension Lymph node disorder Panic disorder Personal history of colonic polyps Shortness of breath Smoker Vaso vagal episode Wears partial dentures Home Medications hydrochlorothiazide 12.5 mg capsule 12.5 mg PO DAILY 10/18/18 [History Last Taken Unknown] alprazolam 1 mg tablet 1 mg PO TID 04/29/23 [History Last Taken Unknown] tobramycin 0.3 % eye drops 2 drp ophthalmic (eye) Q4H #5 mL 06/15/23 [Rx Last Taken Unknown] amoxicillin 875 mg-potassium clavulanate 125 mg tablet 875 mg (0.875 x 875-125 mg) PO Q12H #20 TABLETS 07/27/23 [Rx Last Taken Unknown] ondansetron 4 mg disintegrating tablet 4 mg PO Q6H PRN PRN Nausea #10 tabs 07/27/23 [Rx Last Taken Unknown] Allergy/AdvReac Type Severity Reaction Status Date / Time Sulfa (Sulfonamide Allergy Shortness Verified 08/10/23 12:35 Antibiotics) of breath ciprofloxacin [From Cipro] AdvReac Other Verified 08/10/23 12:35 Surgical History History of hysterectomy History of tooth extraction History of tubal ligation Hx of bladder repair surgery Hx of colonoscopy Social History household members: spouse Smoking Status: Current every day smoker tobacco type: cigarettes alcohol intake: never substance use type: does not use ROS <MAO Zurita - Last Filed: 08/10/23 15:43> ROS ED Constitutional Constitutional ED: Denies chills or fever(s) Cardiovascular Cardiovascular: Denies chest pain Respiratory/Chest Respiratory/Chest: Denies cough or dyspnea Gastrointestinal Gastrointestinal: Reports abdominal pain; Denies constipation, diarrhea, nausea or vomiting Genitourinary Genitourinary ED: Denies dysuria, hematuria or urinary urgency Musculoskeletal Musculoskeletal: Reports back pain; Denies arthralgias or myalgias Integumentary Denies rash Neurologic Neurologic: Denies weakness EXAM <MAO Zurita - Last Filed: 08/10/23 15:43> Physical Exam Const Vital Signs: 08/10/23 12:35 Temperature 97.9 F Temperature Source Temporal Pulse Rate 107 H Respiratory Rate 18 Blood Pressure 129/97 H Blood Pressure Mean 107 Pulse Ox 98 Oxygen Delivery Method Room Air Positive well nourished, well developed and no apparent distress General Appearance ED: well developed HEENT Reports normocephalic and head/scalp atraumatic Mouth ED: Yes moist mucous membranes normal Eyes PERRL and EOMs intact bilaterally Neck full ROM and supple Chest Wall inspection of chest normal Resp normal respiratory effort and clear to auscultation bilaterally Cardio regular rate and regular rhythm GI soft to palpation, non-distended and no masses GI Narrative: Mild pain to palpation to the left lower quadrant without any rigidity, guarding, or peritoneal signs. Back/Spine normal ROM and normal to inspection Extremity normal to inspection and full ROM Neuro oriented x3, CN's II-XII intact bilaterally, moves all extremities, no focal motor deficits and no sensory deficits noted Sensorium / Orientation: awake and alert Psych mental status grossly normal and thought process normal Skin no rashes or lesions noted and no wounds <Dr. Paul Weaver DO - Last Filed: 08/10/23 15:48> Physical Exam Const Vital Signs: 08/10/23 12:35 Temperature 97.9 F Temperature Source Temporal Pulse Rate 107 H Respiratory Rate 18 Blood Pressure 129/97 H Blood Pressure Mean 107 Pulse Ox 98 Oxygen Delivery Method Room Air [facility] <MAO Zurita - Last Filed: 08/10/23 15:43> [employer] Narrative Medical decision making narrative: Patient presenting today due to left lower quadrant abdominal pain that radiates to her left lower back that she has had since Wednesday. She was diagnosed with diverticulitis on 07/27/23 despite having a negative CT scan but does have a history of diverticulitis and was started on 10 days of Augmentin. Labs obtained here, she does have a slightly elevated WBC, potassium is 3.3, no UTI. CT of the abdomen and pelvis obtained to ensure no worsening of diverticulitis or abscess formation. She was given Toradol and Zofran here. CT shows fatty liver and ruptured right ovarian cyst without any acute diverticulitis. She reports improvement of her symptoms from the Toradol. 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 She reports that she will follow-up with her PCP, she does see Dr. Puga as well. She will be discharged home in stable condition and is comfortable with plan. Lab Data Attestation: I reviewed the patient's lab results. Labs: Laboratory Results - last 24 hr 08/10/23 08/10/23 13:07 13:13 WBC 11.8 H RBC 4.85 Hgb 14.7 Hct 43.2 MCV 89.1 MCH 30.3 MCHC 34.0 RDW Std Deviation 41.6 RDW Coeff of Carline 12.7 Plt Count 297 MPV 10.1 Immature Gran % (Auto) 0.300 Neut % (Auto) 55.3 Lymph % (Auto) 37.9 [place] % (Auto) 5.4 Eos % (Auto) 0.8 Baso % (Auto) 0.3 Absolute Neuts (auto) 6.5 Absolute Lymphs (auto) 4.46 Nucleated RBC % 0 Sodium 140 Potassium 3.3 L Chloride 107 Carbon Dioxide 28.0 Anion Gap 5 BUN 11 Creatinine 0.80 Estim Creat Clear Calc 71.91 Est GFR (MDRD) Af Amer 99 Est GFR (MDRD) Non-Af 82 BUN/Creatinine Ratio 13.8 Glucose 102 Calcium 8.7 Total Bilirubin 0.10 L AST 13 L ALT 25 Alkaline Phosphatase 75 Total Protein 7.4 Albumin 3.9 Globulin 3.5 Albumin/Globulin Ratio 1.1 Lipase 39 Urine Color Yellow Urine Clarity Clear Urine pH 7.0 Ur Specific [place] 1.010 Urine Protein Negative Urine Glucose (UA) Normal Urine Ketones Negative Urine Occult Blood Negative Urine Nitrite Negative Urine Bilirubin Negative Urine Urobilinogen Normal Ur Leukocyte Esterase Negative Urine RBC 0 SEEN Urine WBC 0-5 SEEN Ur Squamous Epith Cells 0-5 SEEN Urine Bacteria 1+ Urine Mucus 0 SEEN Radiography Diagnostic Testing: Clinical Impression(s) from Imaging Studies Abdomen/Pelvis CT 08/10/23 13:49 IMPRESSION: Scattered sigmoid diverticula. Small amount of free fluid is seen in the right side of the cul-de-sac. This most likely is due to a ruptured ovarian follicle/cyst. Fatty infiltration of the liver. Electronically Signed: Edson Pisano MD at 14:38 EDT , <Dr. Paul Weaver, DO - Last Filed: 08/10/23 15:48> MDM MDM Narrative Medical decision making narrative: Patient presenting today due to left lower quadrant abdominal pain that radiates to her left lower back that she has had since Wednesday. She was diagnosed with diverticulitis on 07/27/23 despite having a negative CT scan but does have a history of diverticulitis and was started on 10 days of Augmentin. Labs obtained here, she does have a slightly elevated WBC, potassium is 3.3, no UTI. CT of the abdomen and pelvis obtained to ensure no worsening of diverticulitis or abscess formation. She was given Toradol and Zofran here. Interventions / MDM: Differential diagnosis: Diverticulitis, intra-abdominal etiology, ovarian cyst Diagnosis considered but do not suspect: Intra-abdominal abscess however negative CT My EKG interpretation: N/A Imaging independently reviewed and interpreted by myself: CT abdomen pelvis: Negative diverticulitis, ovarian follicles with mild free fluid right pelvis concerning for ruptured cyst. This was read by radiology. External documents reviewed: N/A Test considered but not ordered:N/A ED course: Attending note: Patient seen and evaluated with piping supervisor. I perform my own [id number] evaluation. I agree with the plan of work-up. Recurrent left lower abdominal pain over 3 days. Just finished a 10-day course of Augmentin after being seen in the ED in the 27 July. Treated for clinical diverticulitis but has had multiple episodes in the past. No fevers or chills. Exam soft abdomen no rebound or guarding. However pointed location left lower quadrant. Laboratory check White count 11.[address] CT scan and negative for her abscess, however free fluid pelvis concern for ruptured ovarian cyst. Discussed with the patient no clear findings for left lower quadrant discussed possibility of additional course of antibiotics however findings of ruptured ovarian cysts with free fluid. She would like to monitor not start antibiotics. She will follow-up with her GI doctor. All questions were answered. Re-evaluation: stable Disposition discussed with patient/family/significant other: Patient Case discussed with consulting clinician: N/A This note was generated with [employer] dictation software. It may contain incorrect words, spelling, and punctuation that were not noted in checking the note before signing. Lab Data Labs: Laboratory Results - last 24 hr 08/10/23 08/10/23 13:07 13:13 WBC 11.8 H RBC 4.85 Hgb 14.7 Hct 43.2 MCV 89.1 MCH 30.3 MCHC 34.0 RDW Std Deviation 41.6 RDW Coeff of Carline 12.7 Plt Count 297 MPV 10.1 Immature Gran % (Auto) 0.300 Neut % (Auto) 55.3 Lymph % (Auto) 37.9 [place] % (Auto) 5.4 Eos % (Auto) 0.8 Baso % (Auto) 0.3 Absolute Neuts (auto) 6.5 Absolute Lymphs (auto) 4.46 Nucleated RBC % 0 Sodium 140 Potassium 3.3 L Chloride 107 Carbon Dioxide 28.0 Anion Gap 5 BUN 11 Creatinine 0.80 Estim Creat Clear Calc 71.91 Est GFR (MDRD) Af Amer 99 Est GFR (MDRD) Non-Af 82 BUN/Creatinine Ratio 13.8 Glucose 102 Calcium 8.7 Total Bilirubin 0.10 L AST 13 L ALT 25 Alkaline Phosphatase 75 Total Protein 7.4 Albumin 3.9 Globulin 3.5 Albumin/Globulin Ratio 1.1 Lipase 39 Urine Color Yellow Urine Clarity Clear Urine pH 7.0 Ur Specific [place] 1.010 Urine Protein Negative Urine Glucose (UA) Normal Urine Ketones Negative Urine Occult Blood Negative Urine Nitrite Negative Urine Bilirubin Negative Urine Urobilinogen Normal Ur Leukocyte Esterase Negative Urine RBC 0 SEEN Urine WBC 0-5 SEEN Ur Squamous Epith Cells 0-5 SEEN Urine Bacteria 1+ Urine Mucus 0 SEEN Radiography Diagnostic Testing: Clinical Impression(s) from Imaging Studies Abdomen/Pelvis CT 08/10/23 13:49 IMPRESSION: Scattered sigmoid diverticula. Small amount of free fluid is seen in the right side of the cul-de-sac. This most likely is due to a ruptured ovarian follicle/cyst. Fatty infiltration of the liver. Electronically Signed: Edson Pisano MD at 14:38 EDT , Discharge Plan Triage Chief Complaint: Abd Pain Other Complaint: Flank Pain Nausea/Vomiting ED Midlevel Provider: Sharda Roque ED Provider: Paul Weaver Dx/Rx/DC Orders Clinical Impression: Lower back pain, Abdominal pain Instructions: Abdominal Pain, ED Back Care Tips Prescriptions: No Action hydrochlorothiazide 12.5 mg capsule 12.5 mg PO DAILY alprazolam 1 mg tablet 1 mg PO TID ondansetron [ondansetron] 4 mg tablet,disintegrating 4 mg PO Q6H PRN PRN (Reason: Nausea) Qty: 10 0RF amoxicillin-pot clavulanate [amoxicillin-pot clavulanate] 875-125 mg tablet 875 mg PO Q12H Qty: 20 0RF tobramycin 0.3 % drops 2 drp ophthalmic (eye) Q4H Qty: 5 1RF Primary Care Provider: Trish Toney Referrals: Trish Toney MD [Primary Care Provider] - 5-7 Days Activity Restrictions/Additional Instructions: Follow-up with your PCP, return for any worsening of symptoms. Disposition Disposition: Home, Self Care Discharge Date/Time: 08/10/23 15:13
[2023-08-10 13:16] LABS: Mucous, Urine 0 SEEN /hpf (<or=2+); Red Blood Cells-Urine 0 SEEN /hpf (0-5)
[2023-08-10] MEDS: Ketorolac 30 MG/ML Syringe 15 MG IV (13:16)
[2023-08-10 13:18] LABS: Color, Urine Yellow (Yellow); Glucose, Dipstick Normal (Normal); Ketone-Dipstick Negative (Negative); Leukocyte Esterase-Dipstick Negative /ul (Negative); Nitrite-Dipstick Negative (Negative); Occult Blood-Urine Negative /ul (Negative); Protein-Dipstick Negative (Negative); Urine Bilirubin Dipstick Negative (Negative); Urine Clarity Clear (Clear); Urine Urobilinogen Normal (Normal)
[2023-08-10 13:28] LABS: Bacteria 1+ /hpf (None Seen); Squamous Epithelial Cells - UA 0-5 SEEN /hpf (5-10); White Blood Cells 0-5 SEEN /hpf (0-5)
[2023-08-10 13:31] LABS: ALB/GLOB Ratio 1.1 RATIO (0.9-2.4); AST(SGOT) 13 U/L (15-37); Alanine Aminotransfer ALT/SGPT 25 U/L (13-56); Albumin, Serum 3.9 g/dL (3.2-5.0); Alkaline Phosphatase 75 U/L (45-117); Anion Gap 5 (5-15); BUN 11 mg/dL (7-18); BUN/Creat Ratio 13.8 RATIO (10-20); Calcium,Total 8.7 mg/dL (8.5-10.1); Chloride 107 mmol/L (98-107); EST Glomerular Filtration Rate 82 mL/min (>60); Est Glom Filt Rate - Afr Amer 99 mL/min (>60); Estimated Creatinine Clearance 71.91 ml/min; Globulin 3.5 g/dL (2.2-4.2); Glucose 102 mg/dL (74-106); Lipase 39 U/L (13-75); Potassium 3.3 mmol/L (3.5-5.1); Protein, Total 7.4 g/dL (6.4-8.2); Sodium Level 140 mmol/L (136-145)
--- NOTE | 2023-08-10 13:49 | CT_ITS ---
STUDY: CT ABDOMEN AND PELVIS WITH CONTRAST REASON FOR EXAM: Female, 48 years old. LLQ pain RADIATION DOSAGE (If Supplied By Facility): CTDIvol = ( 8.13 ) mGy, DLP = ( 481.73 ) mGycm TECHNIQUE: Transaxial images were obtained from the dome of the diaphragm to the symphysis pubis without oral contrast. IV 100mL Isovue-300 was administered. Sagittal and coronal images were reconstructed. Individualized dose optimization techniques were used for this CT. COMPARISON: Comparison is made with prior study dated July 27, 2023. FINDINGS: Mild increased markings at the lung bases suggestive of linear atelectasis and/or scarring. The visualized portions of the heart are within normal limits. There is decreased attenuation of the liver consistent with steatosis. Normal gallbladder and extrahepatic biliary system. Normal spleen. Normal pancreas. Normal bilateral adrenal glands. Normal right kidney. Normal left kidney. Normal visualized stomach. Normal small intestine. There are scattered colonic diverticula consistent with diverticulosis. The appendix is visualized and appears normal. There is scattered atherosclerotic calcification of the abdominal aorta, without a demonstrated aneurysm. Normal inferior vena cava. Normal retroperitoneum. Normal urinary bladder. Small amount of free fluid is seen in the cul-de-sac. Dominant follicle is seen in the right ovary. Small follicles are seen in the left ovary. Normal abdominal wall. Normal osseous structures. CT/Abdomen/Pelvis W IV Cont ONLY IMPRESSION: Scattered sigmoid diverticula. Small amount of free fluid is seen in the right side of the cul-de-sac. This most likely is due to a ruptured ovarian follicle/cyst. Fatty infiltration of the liver. Electronically Signed: Edson Pisano MD at 14:38 EDT ,
[2023-08-10] MEDS: Ondansetron 4 MG/2 ML Vial IV (13:58)
== END 2023-08-10 15:13 | disposition home or self-care (01) ==
PROVIDERS: Physician Assistant; Emergency Provider Emergency Medicine; PCP Internal Medicine; Visit Provider Emergency Medicine
DX: R10.32 Left lower quadrant pain (principal); M54.50 Low back pain, unspecified; I10 Essential (primary) hypertension; R11.2 Nausea with vomiting, unspecified; Z79.899 Other long term (current) drug therapy; F41.9 Anxiety disorder, unspecified; Z90.710 Acquired absence of both cervix and uterus; F17.210 Nicotine dependence, cigarettes, uncomplicated
CPT/HCPCS: 74177; 80053; 81001; 83690; 85025; 96374; 96375; 99283; Q9967; A4216; J2405

== ENCOUNTER 2023-12-28 21:11 | Inpatient (IN) | payer MEDICARE, MEDICAID, SELFPAY ==
[2023-12-28 21:12] VITALS: BP 171/108; PULSE 115; RESP 26; TEMP 37.2; O2SAT 99; BMI 24.1
--- NOTE | 2023-12-28 21:39 | ED.RN ---
Pt requesting that updates be given to as she goes through detox program. Pt understands that she will not be able to talk to , but gives permission to nursing staff to discuss plan of care with .
--- NOTE | 2023-12-28 21:42 | EX.ED.SAOD ---
HPI History of Present Illness Chief Complaint: Substance Abuse Detail of Chief Complaint: Requesting detox from benzos Informant: patient Narrative Narrative: Patient presents requesting detox from benzodiazepines. She states she has been prescribed Xanax for the last 20 years. She took her last dose of 1 mg tab at 5 PM last evening. She had researched online and found a detox program in [place]. She was admitted there at 5 PM last evening. She states that the environment was not good for her, mixing male and female patients. She did not have a private space and did not feel comfortable. She states a worker there told her the only way to get out would be to tell them that she was suicidal. This afternoon she told him she was suicidal and she was transferred to a local hospital for evaluation. There she admitted that she only said this because she needed to get out of that detox facility. She was cleared from a mental health standpoint. She presents here requesting help with benzo detox. She was given a dose of hydroxyzine at the hospital prior to discharge. [facility] Medical History Acute bronchitis, unspecified Anemia Anxiety Contact with and (suspected) exposure to other viral communicable diseases Diverticulitis Fatigue History of COVID-19 History of diverticulitis Hypertension Lymph node disorder Panic disorder Personal history of colonic polyps Shortness of breath Smoker Vaso vagal episode Wears partial dentures Home Medications hydrochlorothiazide 12.5 mg capsule 12.5 mg PO DAILY 10/18/18 [History Last Taken Unknown] alprazolam 1 mg tablet 1 mg PO TID 04/29/23 [History Last Taken Unknown] Allergy/AdvReac Type Severity Reaction Status Date / Time Sulfa (Sulfonamide Allergy Shortness Verified 12/28/23 21:12 Antibiotics) of breath ciprofloxacin [From Cipro] AdvReac Other Verified 12/28/23 21:12 Surgical History History of hysterectomy History of tooth extraction History of tubal ligation Hx of bladder repair surgery Hx of colonoscopy Social History household members: spouse Smoking Status: Current every day smoker tobacco type: cigarettes alcohol intake: never substance use type: does not use ROS ROS ED Constitutional Constitutional ED: Denies chills or fever(s) Eyes Eyes: Denies discharge from eye(s) ENT ENT ED: Denies discharge from eye(s), rhinorrhea or sore throat Cardiovascular Cardiovascular: Denies chest pain or palpitations Respiratory/Chest Respiratory/Chest: Denies cough or dyspnea Gastrointestinal Gastrointestinal: Denies abdominal pain, diarrhea or vomiting Genitourinary Genitourinary ED: Denies dysuria Musculoskeletal Musculoskeletal: Denies back pain or extremity pain Integumentary Denies Abrasions or rash Neurologic Neurologic: Denies headache(s) or weakness Psychiatric Psychiatric: Reports anxiety; Denies depression Allergic/Immunologic Allergic/Immunologic ED: Denies lip swelling or urticaria EXAM Physical Exam Const Vital Signs: 12/28/23 21:12 Temperature 98.9 F Temperature Source Temporal Pulse Rate 115 H Respiratory Rate 26 H Blood Pressure 171/108 H Blood Pressure Mean 129 Pulse Ox 99 Oxygen Delivery Method Room Air Positive well nourished and well developed General Appearance ED: well developed HEENT Reports moist mucous membranes Eyes EOMs intact bilaterally Lymph Lymphatic: no lymphadenopathy noted Chest Wall inspection of chest normal and palpation of chest normal Resp normal respiratory effort and clear to auscultation bilaterally Cardio Rate: tachycardic GI soft to palpation and non-tender Neuro oriented x3 and no sensory deficits noted Sensorium / Orientation: alert Motor Exam: strength 5/5 throughout Psych Mood & Affect: anxious and tearful MDM MDM MDM Narrative Medical decision making narrative: Lab work for addiction medicine is entered. Patient was discussed with Dr. Reza, hospitalist. Patient be admitted to [facility] for the detox program. Discharge Plan Triage Chief Complaint: Substance Abuse ED Provider: Tila Morales Dx/Rx/DC Orders Clinical Impression: Desire for detoxification, Benzodiazepine withdrawal Prescriptions: No Action hydrochlorothiazide 12.5 mg capsule 12.5 mg PO DAILY alprazolam 1 mg tablet 1 mg PO TID Primary Care Provider: Trish Toney OLS Referrals: Trish Toney MD [[facility] Staff - Books Salesperson] - Disposition Disposition: Acute Care Hospital [facility]
--- OUTSIDE RECORDS SUMMARY | 2023-12-28 21:50 | XMS RPT_ITS | CCD ---
Author Name Unknown Address [address] [place] [address] Organization [facility] Care Team Providers Care Relay Tester Name Role Phone Georgina Mckenzie Attending Unavailable Vika Linder Attending Unavailable Vika Linder Referring Unavailable Ata Dupont Attending Unavailable Viviana Hammond Attending Unavailable Shani Martinez Attending Unavailable Darnell Mays Attending Unavail able Brian Schreiber Attending Unavailable Darnell Mays Attending Unavail able Viviana Hammond Attending Unavailable Viviana Hammond Attending Unavailable Viviana Hammond Attending Unavailable Brain Schreiber Attending Unavailable Kristen Fernandez Attending Unavailable Ata Dupont Attending Unavailable Ata Dupont Referring Unavailable Suraj Woodall Attending Unavailable Eulalia Quezada Attending Unavailable SILVESTRE JOHNSON M Admitting Unavailable HABERBERGERSILVESTRE M Attending Unavailable HABERBERGER, SILVESTRE M Primary Care Unavailable NO, DOCTOR ON Consulting Unavailable NO, DOCTOR ON Referring Unavailable HABERBERGER, SILVESTRE M Admitting Unavailable HABERBERGER, SILVESTRE M Attending Unavailable NO, DOCTOR ON Referring Unavailable HABERBERGER, SILVESTRE M Primary Care Unavailable NO, DOCTOR ON Consulting Unavailable JULIANNA, CRISTA ZACH Primary Care Unavailable BYRON BOLTON Referring Unavailable BYRON BOLTON Admitting Unavailable BYRON BOLTON Admitting Unavailable GANTA, CRISTA ZACH Primary Care Unavailable BYRON BOLTON Referring Unavailable GANTA, CRISTA ZACH Primary Care Unavailable BYRON BOLTON Referring Unavailable BYRON BOLTON Admitting Unavailable Crista Levine MD Primary Care Provider Ganta MD, Crista Primary Care Provider Julianna DAY, Crista Primary Care Provider [phone] SONU CORBIN Attending Unavailable GANTA, CRISTA Referring Unavailable GANTA, CRISTA Primary Care Unavailable Julianna DAY, Crista Primary Care Provider Minda TACTICAL INTELLIGENCE OFFICER.OSEI, David Primary Care Provider Crista Levine MD Primary Care Provider Crista Levine MD Primary Care Provider GANTA, CRISTA Referring Unavailable GANTA, CRISTA Primary Care Unavailable GANTA, CRISTA Primary Care Unavailable UGALDE, RENETTA Attending Unavailable GANTA, CRISTA Primary Care Unavailable GANTA, CRISTA Attending Unavailable GANTA, CRISTA Primary Care Unavailable GANTA, CRISTA Primary Care Unavailable GANTA, CRISTA Primary Care Unavailable GANTA, CRISTA Primary Care Unavailable DANIELLE BRODERICK Attending Unavailable GANTA, CRISTA Primary Care Unavailable MARILUZ VARGAS Attending Unavailable GANTA, CRISTA Primary Care Unavailable FLORINDA KRUSE Referring Unavailable DENBOW, JONATHAN Referring Unavailable GANTA, CRISTA Primary Care Unavailable GANTA, CRISTA Primary Care Unavailable DENBOW, JONATHAN Attending Unavailable KNMOLLY, DAVID Primary Care Unavailable KNOBLE, DAVID Primary Care Unavailable GANTA, CRISTA Primary Care Unavailable UGALDE, RENETTA Referring Unavailable Allergies Allergy Classification Reported Allergen(s) Allergy Type Date of Onset Reaction(s) Facility (4 sources) Sulfonamides (Antibiotic); Translations: [SULFA (SULFONAMIDE ANTIBIOTICS)] Drug allergy (disorder) 0 [facility] Repository (2 sources) cold medicine; Translations: [cold medicine] Propensity to adverse reactions (disorder) [facility] Repository (1 source) LORazepam Drug Allergy [facility] Repository (1 source) Sulfonamides (Antibiotic) Drug allergy (disorder) [facility] Repository (1 source) COLD & ALLERGY Drug allergy (disorder) [facility] Repository (20 sources) Amoxicillin / Clavulanate; Translations: [AMOXICILLIN-POT CLAVULANATE] Drug Allergy 1 Other: See Comments [facility] Work Phone: (20 sources) Ciprofloxacin; Translations: [CIPROFLOXACIN] Drug Allergy 1 Myalgia [facility] Work Phone: (20 sources) LORazepam; Translations: [LORAZEPAM] Drug Allergy 0 Intolerance [facility] Work Phone: (20 sources) Nitrofurantoin; Translations: [NITROFURANTOIN] Drug Allergy 0 Vomiting [facility] Work Phone: (20 sources) PARoxetine; Translations: [PAROXETINE HCL] Drug Allergy 1 Shortness of Breath [facility] (20 sources) Sulfonamides (Antibiotic) Drug Allergy 0 Other: See Comments [facility] Work Phone: (20 sources) Cough Decongest D; Translations: [COUGH DECONGEST D] Drug Intolerance 9 Intolerance [facility] Work Phone: (9 sources) Ofloxacin; Translations: [OFLOXACIN] Drug Allergy 3 Unknown [facility] Work Phone: Medications Current Medications Medication Drug Class(es) Dates Sig (Normalized) Sig (Original) doxycycline hyclate 100 mg oral tablet (2 sources) Tetracycline-clas s Drug Start: 12-14-2023 End: 12-21-2023 take 1 tablet by mouth twice daily doxycycline (VIBRA-TABS) 100 mg tablet Take 1 tablet by mouth two times a day for 7 days. 14 tablet 0 12/14/2023 12/21/2023 Active Completed/Discontinued Medications Medication Drug Class(es) Dates Sig (Normalized) Sig (Original) [id number] 200 actuat albuterol 0.09 mg/actuat metered dose inhaler (16 sources) beta2-Adrenergic Agonist Start: 12-31-2022 End: 09-13-2023 take 2 puff(s) by inhalation every four hours as needed for wheezing albuterol HFA (PROVENTIL HFA, VENTOLIN HFA) 90 mcg/actuation inhaler Inhale 2 Puffs as instructed every 4 hours as needed for wheezing/shortness of breath. 6.7 g 0 12/31/2022 09/13/2023 Discontinued Problems Active Problems Problem Classification Problem Date Documented Da te Episodic/Chronic Abdominal pain (3 sources) Pain in pelvis; Translations: [Pelvic and perineal pain] Episodic Acute bronchitis (1 source) Acute bronchitis, unspecified; Translations: [Acute bronchitis, unspecified] Onset: 09-22-2019 Episodic Anxiety disorders (20 sources) Generalized anxiety disorder; Translations: [Generalized anxiety disorder] Onset: 01-07-2022 01-07-2022 Chronic Calculus of urinary tract (1 source) Kidney stone; Translations: [Calculus of kidney] Episodic Chronic obstructive pulmonary disease and bronchiectasis (1 source) Bronchitis; Translations: [Bronchitis, not specified as acute or chronic] Episodic Essential hypertension (7 sources) Essential (primary) hypertension; Translations: [Essential hypertension] Onset: 09-22-2019 Chronic Genitourinary symptoms and ill-defined conditions (1 source) Dysuria; Translations: [Dysuria] Episodic Hypertension with complications and secondary hypertension (1 source) Secondary hypertension; Translations: [Other secondary hypertension] Chronic Immunizations and screening for infectious disease (1 source) Viral screening status; Translations: [Encounter for screening for other viral diseases] Episodic Inflammation; infection of eye (except that caused by tuberculosis or sexually transmitteddisease) (3 sources) Conjunctivitis; Translations: [Other conjunctivitis] Onset: 09-13-2023 09-13-2023 Episodic Mood disorders (20 sources) Bipolar affective disorder, currently depressed, moderate; Translations: [Bipolar disorder, current episode depressed, moderate] Onset: 06-29-2019 06-29-2019 Chronic Other circulatory disease (1 source) Elevated blood pressure; Translations: [Elevated blood-pressure reading, without diagnosis of hypertension] 12-14-2023 Episodic Other connective tissue disease (1 source) Increased muscle tone; Translations: [Other specified disorders of muscle] Episodic Other connective tissue disease (1 source) Spasm; Translations: [Other muscle spasm] Episodic Other diseases of kidney and ureters (2 sources) Cyst of kidney; Translations: [Cyst of kidney, acquired] Episodic Other diseases of kidney and ureters (1 source) Acquired renal cystic disease; Translations: [Cyst of kidney, acquired] Episodic Other eye disorders (1 source) Disorder of eye; Translations: [Other specified disorders of eye and adnexa] 06-16-2023 Episodic Other eye disorders (1 source) Red eye; Translations: [Other specified disorders of eye and adnexa] 12-08-2023 Episodic Other female genital disorders (1 source) Dyspareunia; Translations: [Other specified dyspareunia] Chronic Other lower respiratory disease (2 sources) Cough; Translations: [Cough] Onset: 09-22-2019 Episodic Other lower respiratory disease (1 source) Cough; Translations: [Acute cough] Episodic Other nutritional; endocrine; and metabolic disorders (1 source) H/O: metabolic disorder; Translations: [Personal history of other endocrine, nutritional and metabolic disease] 09-13-2023 Episodic Other nutritional; endocrine; and metabolic disorders (1 source) Personal history of other endocrine, nutritional and metabolic disease; Translations: [History of hypokalemia] Onset: 10-19-2023 Episodic Other skin disorders (1 source) Cyst of skin; Translations: [Follicular cyst of the skin and subcutaneous tissue, unspecified] Episodic Other upper respiratory infections (2 sources) Chronic sinusitis, unspecified; Translations: [Unspecified sinusitis (chronic)] 12-14-2023 Chronic Other upper respiratory infections (1 source) Acute upper respiratory infection; Translations: [Acute upper respiratory infection, unspecified] Episodic Spondylosis; intervertebral disc disorders; other back problems (1 source) Acute low back pain; Translations: [Acute low back pain without sciatica, unspecified back pain laterality] Episodic Substance-related disorders (20 sources) Nicotine dependence, cigarettes, uncomplicated; Translations: [Tobacco user] Onset: 09-22-2019 01-07-2022 Chronic Unclassified (1 source) Acute cough; Translations: [Acute cough] Onset: 12-31-2022 Viral infection (1 source) Genital warts; Translations: [Anogenital (venereal) warts] Episodic Past or Other Problems Problem Classification Problem Date Documented Da te Episodic/Chronic Fluid and electrolyte disorders (20 sources) Hypokalemia; Translations: [Hypokalemia] Onset: 01-26-2022 01-26-2022 Episodic Inflammatory diseases of female pelvic organs (20 sources) Vaginitis; Translations: [Acute vaginitis] Onset: 07-04-2012 07-04-2012 Episodic Nonmalignant breast conditions (1 source) Mastodynia; Translations: [Nipple soreness] Onset: 04-22-2023 Episodic Other and unspecified benign neoplasm (20 sources) Tubular adenoma ; Translations: [Benign neoplasm, unspecified site] Onset: 01-26-2022 01-26-2022 Episodic Other screening for suspected conditions (not mental disorders or infectious disease) (11 sources) Patient encounter status; Translations: [Encounter for screening mammogram for malignant neoplasm of breast] Onset: 05-06-2023 Episodic Residual codes; unclassified (20 sources) Flushing; Translations: [Flushing] Onset: 01-26-2022 01-26-2022 Episodic Results Test Name Value Interpretation Reference Range Facil ity Vital Signs Date Time Vital Sign Value Performing Clinician Syed slater 12-17-2023 13:34-0500 Diastolic blood pressure 87 mm[Hg] Danielle Broderick TACTICAL INTELLIGENCE OFFICER.DEVELOPMENT ANALYST Work Phone: [facility] 12-17-2023 13:34-0500 Heart rate 91 /min Danielle Broderick TACTICAL INTELLIGENCE OFFICER.DEVELOPMENT ANALYST Work Phone: [facility] 12-17-2023 13:34-0500 Systolic blood pressure 122 mm[Hg] Danielle Broderick TACTICAL INTELLIGENCE OFFICER.DEVELOPMENT ANALYST Work Phone: [facility] 12-17-2023 13:26-0500 Body weight 66.22 kg Danielle Broderick TACTICAL INTELLIGENCE OFFICER.DEVELOPMENT ANALYST Work Phone: [facility] 12-17-2023 13:26-0500 Respiratory rate 16 /min Danielle Broderick TACTICAL INTELLIGENCE OFFICER.DEVELOPMENT ANALYST Work Phone: [facility] 12-14-2023 15:59-0500 Body temperature 98.4 [degF] Shilpa Anders TACTICAL INTELLIGENCE OFFICER.SAP SOLUTIONS ARCHITECT Work Phone: [facility] 12-14-2023 15:59-0500 Body weight 67.59 kg Shilpa Anders TACTICAL INTELLIGENCE OFFICER.SAP SOLUTIONS ARCHITECT Work Phone: [facility] 12-14-2023 15:59-0500 Diastolic blood pressure 88 mm[Hg] Shilpa Anders TACTICAL INTELLIGENCE OFFICER.SAP SOLUTIONS ARCHITECT Work Phone: [facility] 12-14-2023 15:59-0500 Heart rate 110 /min Shilpa Anders TACTICAL INTELLIGENCE OFFICER.SAP SOLUTIONS ARCHITECT Work Phone: [facility] 12-14-2023 15:59-0500 Respiratory rate 16 /min Shilpa Anders TACTICAL INTELLIGENCE OFFICER.SAP SOLUTIONS ARCHITECT Work Phone: [facility] 12-14-2023 15:59-0500 SaO2% (BldA) [Mass fraction] 98 % Shilpa Anders TACTICAL INTELLIGENCE OFFICER.SAP SOLUTIONS ARCHITECT Work Phone: [facility] 12-14-2023 15:59-0500 Systolic blood pressure 148 mm[Hg] Shilpa Anders TACTICAL INTELLIGENCE OFFICER.SAP SOLUTIONS ARCHITECT Work Phone: [facility] 12-08-2023 13:16-0500 Body weight 67.3 kg Mariluz Vargas MD Work Phone: [facility] 12-08-2023 13:16-0500 Diastolic blood pressure 89 mm[Hg] Mariluz Vargas MD Work Phone: [facility] 12-08-2023 13:16-0500 Heart rate 105 /min Mariluz Vargas MD Work Phone: [facility] 12-08-2023 13:16-0500 SaO2% (BldA) [Mass fraction] 98 % Mariluz Vargas MD Work Phone: [facility] 12-08-2023 13:16-0500 Systolic blood pressure 128 mm[Hg] Mariluz Vargas MD Work Phone: [facility] 09-13-2023 17:55-0500 Diastolic blood pressure 66 mm[Hg] Jonathan Denbow PA-C Work Phone: [facility] 09-13-2023 17:55-0500 Systolic blood pressure 126 mm[Hg] Jonathan Denbow PA-C Work Phone: [facility] 09-13-2023 16:55-0500 Body height 160 cm Jonathan Denbow PA-C Work Phone: [facility] 09-13-2023 16:55-0500 Body temperature 99 [degF] Jonathan Denbow PA-C Work Phone: [facility] 09-13-2023 16:55-0500 Body weight 66.22 kg Jonathan Denbow PA-C Work Phone: [facility] 09-13-2023 16:55-0500 Heart rate 101 /min Jonathan Denbow PA-C Work Phone: [facility] 09-13-2023 16:55-0500 Respiratory rate 12 /min Jonathan Denbow PA-C Work Phone: [facility] 09-13-2023 16:55-0500 SaO2% (BldA) [Mass fraction] 98 % Jonathan Denbow PA-C Work Phone: [facility] 06-16-2023 18:22-0400 Body temperature 98.8 [degF] Will Demarcus TACTICAL INTELLIGENCE OFFICER.SAP SOLUTIONS ARCHITECT Work Phone: [facility] 06-16-2023 18:22-0400 Body weight 66.59 kg Will Demarcus TACTICAL INTELLIGENCE OFFICER.SAP SOLUTIONS ARCHITECT Work Phone: [facility] 06-16-2023 18:22-0400 Diastolic blood pressure 90 mm[Hg] Will Demarcus TACTICAL INTELLIGENCE OFFICER.SAP SOLUTIONS ARCHITECT Work Phone: [facility] 06-16-2023 18:22-0400 Heart rate 110 /min Will Demarcus TACTICAL INTELLIGENCE OFFICER.SAP SOLUTIONS ARCHITECT Work Phone: [facility] 06-16-2023 18:22-0400 Respiratory rate 22 /min Will Demarcus TACTICAL INTELLIGENCE OFFICER.SAP SOLUTIONS ARCHITECT Work Phone: [facility] 06-16-2023 18:22-0400 SaO2% (BldA) [Mass fraction] 96 % Will Demarcus TACTICAL INTELLIGENCE OFFICER.SAP SOLUTIONS ARCHITECT Work Phone: [facility] 06-16-2023 18:22-0400 Systolic blood pressure 138 mm[Hg] Will Demarcus TACTICAL INTELLIGENCE OFFICER.SAP SOLUTIONS ARCHITECT Work Phone: [facility] 01-25-2023 13:03-0400 Body temperature 99.3 [degF] Johnathan Card MD Work Phone: [facility] 01-25-2023 13:03-0400 Body weight 68.77 kg Johnathan Card MD Work Phone: [facility] 01-25-2023 13:03-0400 Diastolic blood pressure 108 mm[Hg] Johnathan Card MD Work Phone: [facility] 01-25-2023 13:03-0400 Heart rate 107 /min Johnathan Card MD Work Phone: [facility] 01-25-2023 13:03-0400 Respiratory rate 21 /min Johnathan Card MD Work Phone: [facility] 01-25-2023 13:03-0400 SaO2% (BldA) [Mass fraction] 99 % Johnathan Card MD Work Phone: [facility] 01-25-2023 13:03-0400 Systolic blood pressure 140 mm[Hg] Johnathan Card MD Work Phone: [facility] 01-13-2023 15:48-0500 Body height 160 cm Crista Levine MD Work Phone: [facility] 01-13-2023 15:48-0500 Body temperature 97.39 [degF] Crista Levine MD Work Phone: [facility] 01-13-2023 15:48-0500 Body weight 68.49 kg Crista Levine MD Work Phone: [facility] 01-13-2023 15:48-0500 Diastolic blood pressure 60 mm[Hg] Crista Levine MD Work Phone: [facility] 01-13-2023 15:48-0500 Heart rate 107 /min Crista Levine MD Work Phone: [facility] 01-13-2023 15:48-0500 Respiratory rate 14 /min Crista Levine MD Work Phone: [facility] 01-13-2023 15:48-0500 SaO2% (BldA) [Mass fraction] 98 % Crista Levine MD Work Phone: [facility] 01-13-2023 15:48-0500 Systolic blood pressure 122 mm[Hg] Crista Levine MD Work Phone: [facility] 12-31-2022 10:40-0500 Body temperature 98.91 [degF] Krislyn Aberegg PA Work Phone: [facility] 12-31-2022 10:40-0500 Body weight 67.22 kg Krislyn Aberegg PA Work Phone: [facility] 12-31-2022 10:40-0500 Diastolic blood pressure 78 mm[Hg] Krislyn Aberegg PA Work Phone: [facility] 12-31-2022 10:40-0500 Heart rate 103 /min Krislyn Aberegg PA Work Phone: [facility] 12-31-2022 10:40-0500 Respiratory rate 18 /min Krislyn Aberegg PA Work Phone: [facility] 12-31-2022 10:40-0500 SaO2% (BldA) [Mass fraction] 98 % Krislyn Aberegg PA Work Phone: [facility] 12-31-2022 10:40-0500 Systolic blood pressure 112 mm[Hg] Krislyn Aberegg PA Work Phone: [facility] 09-11-2022 12:56-0400 Body height 160 cm Crista Levine MD Work Phone: [facility] 09-11-2022 12:56-0400 Body temperature 98.29 [degF] Crista Levine MD Work Phone: [facility] 09-11-2022 12:56-0400 Body weight 64.41 kg Crista Levine MD Work Phone: [facility] 09-11-2022 12:56-0400 Diastolic blood pressure 90 mm[Hg] Crista Levine MD Work Phone: [facility] 09-11-2022 12:56-0400 Heart rate 105 /min Crista Levine MD Work Phone: [facility] 09-11-2022 12:56-0400 Respiratory rate 16 /min Crista Levine MD Work Phone: [facility] 09-11-2022 12:56-0400 SaO2% (BldA) [Mass fraction] 98 % Crista Levine MD Work Phone: [facility] 09-11-2022 12:56-0400 Systolic blood pressure 136 mm[Hg] Crista Levine MD Work Phone: [facility] 09-07-2022 14:56-0400 Body temperature 97.59 [degF] Destiney Briggs APRN.SAP SOLUTIONS ARCHITECT Work Phone: [facility] 09-07-2022 14:56-0400 Body weight 64.86 kg Destiney Briggs APRN.SAP SOLUTIONS ARCHITECT Work Phone: [facility] 09-07-2022 14:56-0400 Diastolic blood pressure 96 mm[Hg] Destiney Briggs APRN.SAP SOLUTIONS ARCHITECT Work Phone: [facility] 09-07-2022 14:56-0400 Heart rate 97 /min Destiney Briggs APRN.SAP SOLUTIONS ARCHITECT Work Phone: [facility] 09-07-2022 14:56-0400 Respiratory rate 18 /min Destiney Briggs APRN.SAP SOLUTIONS ARCHITECT Work Phone: [facility] 09-07-2022 14:56-0400 SaO2% (BldA) [Mass fraction] 99 % Destiney Briggs APRN.SAP SOLUTIONS ARCHITECT Work Phone: [facility] 09-07-2022 14:56-0400 Systolic blood pressure 152 mm[Hg] Destiney Briggs APRN.SAP SOLUTIONS ARCHITECT Work Phone: [facility] 07-10-2022 15:21-0400 Body height 160.7 cm Renetta Ugalde APRN.SAP SOLUTIONS ARCHITECT Work Phone: [facility] 07-10-2022 15:21-0400 Body weight 64.41 kg Renetta Ugalde APRN.SAP SOLUTIONS ARCHITECT Work Phone: [facility] 07-10-2022 15:21-0400 Diastolic blood pressure 82 mm[Hg] Renetta Ugalde APRN.SAP SOLUTIONS ARCHITECT Work Phone: [facility] 07-10-2022 15:21-0400 Systolic blood pressure 124 mm[Hg] Renetta Ugalde TACTICAL INTELLIGENCE OFFICER.SAP SOLUTIONS ARCHITECT Work Phone: [facility] 07-08-2022 14:47-0400 Body weight 64.41 kg Florinda Older TACTICAL INTELLIGENCE OFFICER.SAP SOLUTIONS ARCHITECT Work Phone: [facility] 07-08-2022 14:47-0400 Diastolic blood pressure 88 mm[Hg] Florinda Older TACTICAL INTELLIGENCE OFFICER.SAP SOLUTIONS ARCHITECT Work Phone: [facility] 07-08-2022 14:47-0400 Heart rate 90 /min Florinda Older TACTICAL INTELLIGENCE OFFICER.SAP SOLUTIONS ARCHITECT Work Phone: [facility] 07-08-2022 14:47-0400 Respiratory rate 12 /min Florinda Older TACTICAL INTELLIGENCE OFFICER.SAP SOLUTIONS ARCHITECT Work Phone: [facility] 07-08-2022 14:47-0400 Systolic blood pressure 124 mm[Hg] Florinda Older TACTICAL INTELLIGENCE OFFICER.SAP SOLUTIONS ARCHITECT Work Phone: [facility] Encounters Encounter Date Encounter Type Care Provider Facility Start: 12-17-2023 End: 12-17-2023 ambulatory [facility] Facility:[facility] Start: 12-17-2023 End: 12-17-2023 Office outpatient visit 25 minutes Danielle Broderick APRN.DEVELOPMENT ANALYST Work Phone: [facility] Procedures Date Procedure Procedure Detail Performing Clinician Start: 12-08-2023 ALLERGEN SKIN TEST-I NHALENT 40 Mariluz Vargas MD Work Phone: Start: 05-06-2023 End: 05-06-2023 Mammography Renetta Ugalde APRN.SAP SOLUTIONS ARCHITECT Work Phone: Start: 09-16-2022 Us pelvic nonobstetr ic real-time image complete Renetta Ugalde APRN.SAP SOLUTIONS ARCHITECT Work Phone: Start: 09-11-2022 Urnls dip stick/tabl et rgnt auto w/o microscopy Crista Levine MD Work Phone: Start: 09-07-2022 Urnls dip stick/tabl et rgnt auto w/o microscopy Sharmaine Matthews PA-C Work Phone: Start: 08-21-2022 Us retroperitoneal r eal time w/image complete Sonu Corbin MD Work Phone: Start: 05-26-2022 Us breast uni real t ronen with image limited Crista Levine MD Work Phone: Start: 05-26-2022 End: 05-26-2022 Mammography Crista Levine MD Work Phone: Start: 04-20-2022 End: 04-20-2022 Screening mammography bi 2-view breast inc cad Bulk Order Provider Start: 03-11-2021 Mammography Byron olmedo TACTICAL INTELLIGENCE OFFICER.SAP SOLUTIONS ARCHITECT, DNP Work Phone: Plan of Treatment Date Care Activity Detail Author Start: 06-20-2028 Urine microalbumin profile DTa P,Tdap,Td Vaccine (3 - Td or Tdap) [facility] Start: 04-23-2027 Urine microalbumin profile DTa P,Tdap,Td Vaccine (2 - Td or Tdap) [facility] Start: 10-19-2026 Diabetes Screening Diabetes Screenin g [facility] Start: 04-27-2026 DIABETES SCREEN DIAB[facility]CREEN [facility] Start: 04-27-2026 Diabetes Screening Diabetes Screenin g [facility] Start: 04-07-2026 Colonoscopy COLONOSCOPY [facility] Start: 04-07-2026 COLORECTAL CANCER SCREENING COLORECTAL CANCER SCREENING [facility] Start: 04-07-2026 Screening for malign ant neoplasm of colon [facility] Start: 09-13-2024 Annual PCP Team Blacksmith Assistant carole Disease Visit Annual PCP Team Chronic Disease Visit [facility] Start: 09-13-2024 BP Controlled (<130/80) BP Controlle d (<130/80) [facility] Start: 09-13-2024 HIV Screening HIV Screening [facility] Immunizations Immunization Date Immunization Notes Care Provider Heather dietrich 04-23-2017 tetanus toxoid, redu christina diphtheria toxoid, and acellular pertussis vaccine, adsorbed Jonathan Denbow PA-C Work Phone: [facility] Work Phone: Payers Date Payer Category Payer Unknown ANTHEM BLUE CROS S AND BLUE SHIELD [employer] MED[employer] HMO [id number] 2022-Present [phone] [address] [place] [address] O [id number] 2022 Unknown [id number] 2022 Unknown [id number] 2019 Medicaid MEDICAID [facility] MEDICAID [id number] 2019-Present [phone] [address] [place] [address] Medicaid [id number] 2019 Medicaid MEDICAID [facility] MEDICAID [id number] 2019-Present [phone] [address] [place] [address] Medicaid [id number] 2018 Medicare [id number] 2018 Medicare [id number] 2018 Self-pay 2014 Medicare [id number] 2014 Medicare MEDICARE MEDICAR E A AND B [id number] 2014-Present [phone] [address] [address] [place] [address] Medicare [id number] 1976 Unknown [id number] 1976 Unknown [id number] 1976 Unknown [id number] Unknown [id number] [id number] Unknown [id number] [id number] Unknown [id number] 2.16.840.1.583793.3.579.2.373 Unknown [id number] 2.16.840.1.183994.3.579.2.373 Unknown [id number] 2.16.840.1.704712.3.579.2.373 Unknown [id number] 2.16.840.1.845517.3.579.2.373 Unknown [id number] 2.840.1.552864.3.579.2.373 Unknown [id number] 2.840.1.375291.3.579.2.373 Unknown [id number] 2.840.1.467283.3.579.2.373 Unknown [id number] 2.16.840.1.606785.3.579.2.373 Unknown [id number] 2.16.840.1.875631.3.579.2.373 Unknown [id number] 2.16.840.1.307920.3.579.2.373 Unknown [id number] 2.840.1.377082.3.579.2.373 Unknown [id number] [id number] Unknown [id number] [id number] Unknown [id number] Social History Date Type Detail Facility Start: 08-01-2021 End: 07-08-2022 Tobacco smoking status [facility] Ex-smoker [facility] End: 07-19-2021 History of tobacco use Current smoker [facility] Start: 10-16-2020 End: 08-01-2021 Cigarettes smoked current (pack per day) - Reported 1 [facility] Start: 08-01-2021 End: 12-08-2023 Tobacco use and exposure Smokeless tobacco non-user [facility] Start: 01-26-2022 End: 12-17-2023 Alcohol intake Ex-drinker (finding) [facility] Start: 02-26-2021 End: 11-17-2021 History SDOH Alcohol Frequency 1 [facility] Start: 02-26-2021 History SDOH Alcohol Std Drinks 98 [facility] Start: 02-26-2021 End: 04-27-2023 History SDOH Social Connections Phone 2 [facility] Start: 02-26-2021 End: 04-27-2023 History SDOH Social Connections [employer] 3 [facility] Start: 02-26-2021 History SDOH Stress 5 [facility] Start: 02-26-2021 Education 15 [facility] Start: 1975 Sex Assigned At Not on file C [facility] Start: 03-20-2022 End: 03-30-2022 Exposure to SARS-CoV-2 (event) Unable to assess [facility] Start: 05-16-2022 End: 09-16-2022 Exposure to SARS-CoV-2 (event) Not sure [facility] End: 07-19-2021 History of tobacco use Cigarette Smoker [facility] Start: 04-27-2023 History SDOH Alcohol Std Drinks 0 [facility] Start: 04-27-2023 History SDOH Social Connections Phone 4 [facility] Start: 04-27-2023 History SDOH Physica l Activity DPW 7 [facility] Start: 04-27-2023 History SDOH Physica l Activity MPS 9 [facility] Start: 10-16-2020 End: 04-27-2023 Social connection and isolation panel [facility] Do you belong to any clubs or organizations such as judaism groups, unions, fraternal or athletic groups, or school groups? Yes [facility] Are you now , , , , never or living with a partner? [facility] How often to you hav e a drink containing alcohol? Never [facility] How many standard dr inks containing alcohol do you have on a typical day? Patient does not drink [facility] How hard is it for y ou to pay for the very basics like food, housing, medical care, and heating Not very hard [facility] Do you feel stress - tense, restless, nervous, or anxious, or unable to sleep at night because your mind is troubled all the time - these days [OSQ] Rather much [facility] (I/We) worried wheth er (my/our) food would run out before (I/we) got money to buy more. Never true [facility] In the past 12 month s, was there a time when you were not able to pay the mortgage or rent on time? No [facility] Start: 07-25-2021 Sexual orientation Heterosexual (cem bo) [facility] Start: 12-08-2023 Tobacco smoking stat [facility] Smokes tobacco daily [facility] Clinical Notes 04-20-2022 to 12-17-2023 Patient InstructionsDanielle Broderick APRN.DEVELOPMENT ANALYST - 12/17/2023 1:50 PM Shilpa Zarate APRN.[employer] ARCHITECT - 12/14/2023 4:11 PM ESTTelephone Encounter - Mary Bryant RN - 12/13/2023 12:58 PM EST Note Date & Type Note Facility 12-17-2023 Note HNO ID: [id number] Author: DANIELLE BRODERICK APRN.JONY Service: ? Author Type: Nurse Specialist Type: Progress Notes Filed: 12/17/2023 14:08 Note Text: SUBJECTIVE: Pneumococcal Vaccine(1 of 2 - PCV) Never done BP Controlled (<130/80) Never done Lipid Screening Never done Pap Testing due on 02/07/2024 HPV Testing due on 02/07/2024 HPI Izzy Khan is a 48 year old female. PMH signifiant for ACTIVE PROBLEM LIST Vaginitis Bipolar Affective Disorder, Currently Depressed, Moderate (Hcc) Tobacco Use Disorder Martínez (Generalized Anxiety Disorder) Tubular Adenoma Hypokalemia Hot Flashes HTN:headache, chest pain, palpitations, dyspnea, peripheral edema, orthopnea, fatigue, and PND. Last 14 Encounter BP Readings: Date: BP: 12/17/2023 122/87 12/14/2023 148/88 12/08/2023 128/89 09/13/2023 126/66 08/09/2023 131/90 06/16/2023 138/90 04/22/2023 126/82 01/25/2023 140/108 01/13/2023 122/60 12/31/2022 112/78 09/15/2022 110/82 09/11/2022 136/90 09/07/2022 152/96 07/10/2022 124/82 Review of Systems HENT: Positive for rhinorrhea and sinus pressure. Objective BP 122/87 Pulse 91 Resp 16 Wt 66.2 kg (146 lb) LMP 08/11/2010 BMI 25.86 kg/m? Physical Exam ALLERGIES Allergen Reactions Ciprofloxacin Myalgia Sulfa (Sulfonamide * Other: See Comments Lowers b/p Ativan [Lorazepam] Intolerance Cough Decongest D Intolerance rapid heartbeat Nitrofurantoin Vomiting Ofloxacin Unknown Worsening eye irritaton Paxil [Paroxetine H* Shortness of Breath Medication doxycycline (VIBRA-TABS) 100 mg tablet Take 1 tablet by mouth two times a day for 7 days. ALPRAZolam (XANAX) 1 mg tablet Take 1 mg by mouth three times a day. hydroCHLOROthiazide 12.5 mg tablet Take 1 tablet by mouth once daily. benzonatate (TESSALON PERLES) 100 mg capsule Take 1 capsule by mouth three times a day as needed for cough. (Patient not taking: Reported on 12/17/2023) PAST MEDICAL HISTORY Diagnosis Date Anxiety Bipolar affective disorder, currently depressed, moderate (HCC) 06/29/2019 [facility]109 Diverticulitis MARTÍNEZ (generalized anxiety disorder) 01/07/2022 Genital warts Hypertension Panic disorder PTSD (post-traumatic stress disorder) Tobacco use disorder 01/07/2022 Social History Tobacco Use Smoking status: Every Day Packs/day: 1 Types: Cigarettes Smokeless tobacco: Never Vaping Use Vaping Use: Never used Substance Use Topics Alcohol use: Not Currently Drug use: No ASSESSMENT/PLAN: 1. Hypertension, essential - ICD9: 401.9, ICD10: I10 (primary diagnosis) She was noted to have elevated blood pressure in express care and that ENT visit during recent upper respiratory infection. Currently controlled. - Continue current medications - Recommend home blood pressure monitoring, to bring results to next visit-check daily for the next week or 2 and write down results. If consistently greater than 130/80 call and speak with the nurses to let us know and we can make adjustments or medication if needed. - Encouraged sodium restriction, DASH or Mediterranean diet - Recommend regular aerobic exercise 2. Rhinosinusitis - ICD9: 473.9, ICD10: J32.9 Feeling improved.Continue current treatment unchanged. Danielle Broderick APRN.CNS Medical Decision Making: Problems: Moderate: 1+ chronic illnesses with change Risk: Moderate: Drug management Medical Decision Making Level: 4 - Moderate [facility] 12-17-2023 Instructions Danielle Broderick APRN.CNS - 12/17/2023 1:58 PM EST Drink plenty of fluids, aim for 64 ounces per day. Check your blood pressure once a day. If you are consistently running greater than 130/80 call and speak with the nurse to let us know. documented in this encounter [facility] 12-17-2023 History of Present illness Narrative SUBJECTIVE: Pneumococcal Vaccine(1 of 2 - PCV) Never done BP Controlled (<130/80) Never done Lipid Screening Never done Pap Testing due on 02/07/2024 HPV Testing due on 02/07/2024 HPI Izzy Khan is a 48 year old female. PMH signifiant for ACTIVE PROBLEM LIST Vaginitis Bipolar Affective Disorder, Currently Depressed, Moderate (Hcc) Tobacco Use Disorder Martínez (Generalized Anxiety Disorder) Tubular Adenoma Hypokalemia Hot Flashes HTN:headache, chest pain, palpitations, dyspnea, peripheral edema, orthopnea, fatigue, and PND. Last 14 Encounter BP Readings: Date: BP: 12/17/2023 122/87 12/14/2023 148/88 12/08/2023 128/89 09/13/2023 126/66 08/09/2023 131/90 06/16/2023 138/90 04/22/2023 126/82 01/25/2023 140/108 01/13/2023 122/60 12/31/2022 112/78 09/15/2022 110/82 09/11/2022 136/90 09/07/2022 152/96 07/10/2022 124/82 Review of Systems HENT: Positive for rhinorrhea and sinus pressure. Objective BP 122/87 Pulse 91 Resp 16 Wt 66.2 kg (146 lb) LMP 08/11/2010 BMI 25.86 kg/m Physical Exam ALLERGIES Allergen Reactions Ciprofloxacin Myalgia Sulfa (Sulfonamide * Other: See Comments Lowers b/p Ativan [Lorazepam] Intolerance Cough Decongest D Intolerance rapid heartbeat Nitrofurantoin Vomiting Ofloxacin Unknown Worsening eye irritaton Paxil [Paroxetine H* Shortness of Breath Medication doxycycline (VIBRA-TABS) 100 mg tablet Take 1 tablet by mouth two times a day for 7 days. ALPRAZolam (XANAX) 1 mg tablet Take 1 mg by mouth three times a day. hydroCHLOROthiazide 12.5 mg tablet Take 1 tablet by mouth once daily. benzonatate (TESSALON PERLES) 100 mg capsule Take 1 capsule by mouth three times a day as needed for cough. (Patient not taking: Reported on 12/17/2023) PAST MEDICAL HISTORY Diagnosis Date Anxiety Bipolar affective disorder, currently depressed, moderate (HCC) 06/29/2019 [facility]109 Diverticulitis MARTÍNEZ (generalized anxiety disorder) 01/07/2022 Genital warts Hypertension Panic disorder PTSD (post-traumatic stress disorder) Tobacco use disorder 01/07/2022 Social History Tobacco Use Smoking status: Every Day Packs/day: 1 Types: Cigarettes Smokeless tobacco: Never Vaping Use Vaping Use: Never used Substance Use Topics Alcohol use: Not Currently Drug use: No ASSESSMENT/PLAN: 1. Hypertension, essential - ICD9: 401.9, ICD10: I10 (primary diagnosis) She was noted to have elevated blood pressure in express care and that ENT visit during recent upper respiratory infection. Currently controlled. - Continue current medications - Recommend home blood pressure monitoring, to bring results to next visit-check daily for the next week or 2 and write down results. If consistently greater than 130/80 call and speak with the nurses to let us know and we can make adjustments or medication if needed. - Encouraged sodium restriction, DASH or Mediterranean diet - Recommend regular aerobic exercise 2. Rhinosinusitis - ICD9: 473.9, ICD10: J32.9 Feeling improved.Continue current treatment unchanged. Danielle Broderick APRN.CNS Medical Decision Making: Problems: Moderate: 1+ chronic illnesses with change Risk: Moderate: Drug management Medical Decision Making Level: 4 - Moderate documented in this encounter [facility] 12-14-2023 Note HNO ID: [id number] Author: SHILPA ANDERS APRN.[employer] ARCHITECT Service: ? Author Type: Nurse Practitioner Type: Progress Notes Filed: 12/14/2023 16:36 Note Text: This note was created using [employer]. Subjective Izzy Khan is a 48 year old female. 48 year old female with PMH MARTÍNEZ and bipolar presents for illness. Acute onset one month ago +sinus pressure +sinus congestion + dry cough +fever +chills She also notes I feel my blood pressures at home have been elevated She endorses she has had diastolic numbers in the 99 to 100s The history is provided by the patient. No speech language pathology assistant was used. Sinus Problem This is a new problem. Episode onset: 1 month ago. The problem occurs constantly. The problem has been unchanged. Associated symptoms include chills, congestion, coughing, a fever, headaches and swollen glands. Pertinent negatives include no abdominal pain, anorexia, arthralgias, change in bowel habit, chest pain, diaphoresis, fatigue, joint swelling, myalgias, nausea, neck pain, numbness, rash, sore throat, urinary symptoms, vertigo, visual change, vomiting or weakness. Nothing aggravates the symptoms. She has tried nothing for the symptoms. The treatment provided no relief. PAST MEDICAL HISTORY Diagnosis Date Anxiety Bipolar affective disorder, currently depressed, moderate (HCC) 06/29/2019 [facility]109 Diverticulitis MARTÍNEZ (generalized anxiety disorder) 01/07/2022 Genital warts Hypertension Panic disorder PTSD (post-traumatic stress disorder) Tobacco use disorder 01/07/2022 PAST SURGICAL HISTORY Procedure Laterality Date COLONOSCOPY 11/27/2021 adenoma - yearly colonoscopy [facility] HYSTERECTOMY HX LIGATE FALLOPIAN TUBE PAST SURGICAL HISTORY OF bladder repair ALLERGIES Ciprofloxacin, Sulfa (Sulfonamide Antibiotics), Ativan [Lorazepam], Cough Decongest D, Nitrofurantoin, Ofloxacin, and Paxil [Paroxetine Hcl] MEDICATIONS ALPRAZolam (XANAX) 1 mg tablet Take 1 mg by mouth three times a day. hydroCHLOROthiazide 12.5 mg tablet Take 1 tablet by mouth once daily. benzonatate (TESSALON PERLES) 100 mg capsule Take 1 capsule by mouth three times a day as needed for cough. doxycycline (VIBRA-TABS) 100 mg tablet Take 1 tablet by mouth two times a day for 7 days. FAMILY HISTORY Problem Relation Age of Onset other (HTN) Mother other (HTN, anxiety) Father Prostate Cancer Father other (HTN, ADHD) Sister Anxiety disorder Brother Anxiety disorder Paternal Grandmother Breast Cancer Paternal Grandmother Emphysema Paternal Grandfather Ovarian cancer Other Social History Tobacco Use Smoking status: Every Day Packs/day: 1 Types: Cigarettes Smokeless tobacco: Never Vaping Use Vaping Use: Never used Substance Use Topics Alcohol use: Not Currently Drug use: No Review of Systems Constitutional: Positive for chills and fever. Negative for diaphoresis and fatigue. HENT: Positive for congestion, postnasal drip, sinus pressure and sinus pain. Negative for sore throat. Eyes: Negative for photophobia, pain, discharge, redness, itching and visual disturbance. Respiratory: Positive for cough. Negative for apnea and chest tightness. Cardiovascular: Negative for chest pain. Gastrointestinal: Negative for abdominal pain, anorexia, change in bowel habit, nausea and vomiting. Musculoskeletal: Negative for arthralgias, joint swelling, myalgias and neck pain. Skin: Negative for color change, pallor and rash. Neurological: Positive for headaches. Negative for vertigo, weakness and numbness. Hematological: Negative for adenopathy. Does not bruise/bleed easily. Psychiatric/Behavioral: Negative for agitation and behavioral problems. Objective BP 148/88 Pulse 110 Temp 36.9 ?C (98.4 ?F) Resp 16 Wt 67.6 kg (149 lb) LMP 08/11/2010 SpO2 98% BMI 26.39 kg/m? Physical Exam Vitals and nursing note reviewed. Constitutional: General: She is not in acute distress. Appearance: Normal appearance. She is normal weight. She is not ill-appearing, toxic-appearing or diaphoretic. HENT: Head: Normocephalic and atraumatic. Comments: +frontal sinus pressure +maxillary sinus pressure Right Ear: Ear canal and external ear normal. Left Ear: Ear canal and external ear normal. Ears: Comments: Bilateral TM's mild erythema Nose: Congestion present. No rhinorrhea. Mouth/Throat: Mouth: Mucous membranes are moist. Pharynx: Posterior oropharyngeal erythema present. No oropharyngeal exudate. Eyes: General: Right eye: No discharge. Left eye: No discharge. Extraocular Movements: Extraocular movements intact. Conjunctiva/sclera: Conjunctivae normal. Pupils: Pupils are equal, round, and reactive to light. Cardiovascular: Rate and Rhythm: Regular rhythm. Pulses: Normal pulses. Heart sounds: Normal heart sounds. No murmur heard. No friction rub. Pulmonary: Effort: Pulmonary effort is normal. (more content not included)... [facility] 12-14-2023 History of Present illness Narrative This note was created using [employer]. Subjective Izzy Khan is a 48 year old female. 48 year old female with PMH MARTÍNEZ and bipolar presents for illness. Acute onset one month ago +sinus pressure +sinus congestion + dry cough +fever +chills She also notes I feel my blood pressures at home have been elevated She endorses she has had diastolic numbers in the 99 to 100s The history is provided by the patient. No speech language pathology assistant was used. Sinus Problem This is a new problem. Episode onset: 1 month ago. The problem occurs constantly. The problem has been unchanged. Associated symptoms include chills, congestion, coughing, a fever, headaches and swollen glands. Pertinent negatives include no abdominal pain, anorexia, arthralgias, change in bowel habit, chest pain, diaphoresis, fatigue, joint swelling, myalgias, nausea, neck pain, numbness, rash, sore throat, urinary symptoms, vertigo, visual change, vomiting or weakness. Nothing aggravates the symptoms. She has tried nothing for the symptoms. The treatment provided no relief. PAST MEDICAL HISTORY Diagnosis Date Anxiety Bipolar affective disorder, currently depressed, moderate (HCC) 06/29/2019 [facility]109 Diverticulitis MARTÍNEZ (generalized anxiety disorder) 01/07/2022 Genital warts Hypertension Panic disorder PTSD (post-traumatic stress disorder) Tobacco use disorder 01/07/2022 PAST SURGICAL HISTORY Procedure Laterality Date COLONOSCOPY 11/27/2021 adenoma - yearly colonoscopy [facility] HYSTERECTOMY HX LIGATE FALLOPIAN TUBE PAST SURGICAL HISTORY OF bladder repair ALLERGIES Ciprofloxacin, Sulfa (Sulfonamide Antibiotics), Ativan [Lorazepam], Cough Decongest D, Nitrofurantoin, Ofloxacin, and Paxil [Paroxetine Hcl] MEDICATIONS ALPRAZolam (XANAX) 1 mg tablet Take 1 mg by mouth three times a day. hydroCHLOROthiazide 12.5 mg tablet Take 1 tablet by mouth once daily. benzonatate (TESSALON PERLES) 100 mg capsule Take 1 capsule by mouth three times a day as needed for cough. doxycycline (VIBRA-TABS) 100 mg tablet Take 1 tablet by mouth two times a day for 7 days. FAMILY HISTORY Problem Relation Age of Onset other (HTN) Mother other (HTN, anxiety) Father Prostate Cancer Father other (HTN, ADHD) Sister Anxiety disorder Brother Anxiety disorder Paternal Grandmother Breast Cancer Paternal Grandmother Emphysema Paternal Grandfather Ovarian cancer Other Social History Tobacco Use Smoking status: Every Day Packs/day: 1 Types: Cigarettes Smokeless tobacco: Never Vaping Use Vaping Use: Never used Substance Use Topics Alcohol use: Not Currently Drug use: No Review of Systems Constitutional: Positive for chills and fever. Negative for diaphoresis and fatigue. HENT: Positive for congestion, postnasal drip, sinus pressure and sinus pain. Negative for sore throat. Eyes: Negative for photophobia, pain, discharge, redness, itching and visual disturbance. Respiratory: Positive for cough. Negative for apnea and chest tightness. Cardiovascular: Negative for chest pain. Gastrointestinal: Negative for abdominal pain, anorexia, change in bowel habit, nausea and vomiting. Musculoskeletal: Negative for arthralgias, joint swelling, myalgias and neck pain. Skin: Negative for color change, pallor and rash. Neurological: Positive for headaches. Negative for vertigo, weakness and numbness. Hematological: Negative for adenopathy. Does not bruise/bleed easily. Psychiatric/Behavioral: Negative for agitation and behavioral problems. Objective BP 148/88 Pulse 110 Temp 36.9 C (98.4 F) Resp 16 Wt 67.6 kg (149 lb) LMP 08/11/2010 SpO2 98% BMI 26.39 kg/m Physical Exam Vitals and nursing note reviewed. Constitutional: General: She is not in acute distress. Appearance: Normal appearance. She is normal weight. She is not ill-appearing, toxic-appearing or diaphoretic. HENT: Head: Normocephalic and atraumatic. Comments: +frontal sinus pressure +maxillary sinus pressure Right Ear: Ear canal and external ear normal. Left Ear: Ear canal and external ear normal. Ears: Comments: Bilateral TM's mild erythema Nose: Congestion present. No rhinorrhea. Mouth/Throat: Mouth: Mucous membranes are moist. Pharynx: Posterior oropharyngeal erythema present. No oropharyngeal exudate. Eyes: General: Right eye: No discharge. Left eye: No discharge. Extraocular Movements: Extraocular movements intact. Conjunctiva/sclera: Conjunctivae normal. Pupils: Pupils are equal, round, and reactive to light. Cardiovascular: Rate and Rhythm: Regular rhythm. Pulses: Normal pulses. Heart sounds: Normal heart sounds. No murmur heard. No friction rub. Pulmonary: Effort: Pulmonary effort is normal. No respiratory distress. Breath sounds: Normal breath sounds. No stridor. No wheezing, rhonchi or rales. Chest: Chest wall: No tenderness. Abdominal: General: Abdomen is flat. There is no distension. Palpations: Abdomen is soft. There is no mass. Tenderness: There is no abdominal tenderness. There is no right CVA tenderness, left CVA tenderness, guarding or rebound. Hernia: No hernia is present. Musculoskeletal: General: No swelling, tenderness, deformity or signs of injury. Normal range of motion. Cervical back: Normal range of motion and neck supple. No rigidity. Right lower leg: No edema. Left lower leg: No edema. Lymphadenopathy: Cervical: Cervical adenopathy present. Skin: General: Skin is warm and dry. Capillary Refill: Capillary refill takes less than 2 seconds. Coloration: Skin is not jaundiced or pale. Findings: No bruising, erythema, lesion or rash. Neurological: General: No focal deficit present. Mental Status: She is alert and oriented to person, place, and time. Cranial Nerves: No cranial nerve deficit. Sensory: No sensory deficit. Motor: No weakness. Coordination: Coordination normal. Gait: Gait normal. Psychiatric: Mood and Affect: Mood normal. Behavior: Behavior normal. Thought Content: Thought content normal. Judgment: Judgment normal. Assessment and Plan ASSESSMENT/PLAN: 1. Rhinosinusitis - ICD9: 473.9, ICD10: J32.9 X 1 month - Will begin treatment with as per antibiotic as written, see orders - The patient should also be given OTC cough and cold meds as needed, warm salt water gargles, throat lozenges and/or OTC throat spray as needed, and nasal saline gtts and suction prn for the first 5-7 days of treatment. - Supportive care with plenty of fluids, rest, and analgesia prn. - Follow up in 3-5 days if symptoms persist or worsen. 2. Elevated blood pressure reading - ICD9: 796.2, ICD10: R03.0 Here, BP 148/88 No red flags - Encouraged dietary sodium restriction/DASH diet - Recommended regular aerobic exercise. - Recommend home blood pressure monitoring, to bring results in on next visit - Discussed red flags - Goal of BP <130/80 Shilpa Anders APRN.[employer] ARCHITECT documented in this encounter [facility] 12-13-2023 Miscellaneous Notes Triaged patient who called with elevated BP reading and complaint of intermittent headaches. Reviewed triage protocol guidelines with patient. Disposition: See PCP within 2 weeks. Appointment scheduled with Danielle BORGES on 12/17/23. Mary Bryant RN Reason for Disposition [1] Systolic BP >= 130 OR Diastolic >= 80 AND [2] taking BP medications Answer Assessment - Initial Assessment Questions 1. BLOOD PRESSURE: BP yesterday 144/99 Did not recheck 2. ONSET: Has been checking intermittently 3. HOW: automatic home BP monitor 4. HISTORY: history of hypertension 5. MEDICINES: Takes HCTZ as prescribed 6. OTHER SYMPTOMS: intermittent headaches. Denies chest pain, SOB dizziness, 7. : NO Protocols used: Blood Pressure - Zpid-WLLED-[id number] documented in this encounter [facility] 12-08-2023 Note HNO ID: [id number] Author: MARILUZ VARGAS MD Service: ? Author Type: Physician Type: Progress Notes Filed: 12/10/2023 09:02 Note Text: This is a consultation requested by Florinda Kruse APRN, CNP for an allergy and immunology evaluation. My final recommendations will be communicated back to the requesting healthcare provider(s) by way of shared medical record or via [place] mail. Izzy Khan is a 48 year old female who presents with a 6-month history of red and irritated eyes. Also complains of eye discomfort, matting and intermittent excess tearing. Symptoms started in May,. At that time, her grandson was being treated for bacterial conjunctivitis. The patient was treated with a course of antibiotic eyedrops for 5 to 6 days without relief. Ofloxacin eyedrops were then prescribed which she used for 2 days with worsening of symptoms. Upon subsequent evaluation with Dr. Mendoza, she was treated with Zaditor, Pataday, steroid eyedrops and a course of oral steroids. Symptoms only seem to improve with the steroid eyedrops and/or systemic steroids. Unfortunately, symptoms tend to recur after discontinuing use of the steroids. Dust and mold exposure are possible triggers of her symptoms. Patient also reports some puffiness and erythema of the upper and lower eyelids but denies a prior diagnosis of eyelid eczema. She does not wear contact lenses. Denies use of pqop-[id number] topical antibiotics to the eyes and eyelids. She also complains of nasal congestion, sneezing, rhinorrhea and postnasal drip occurring in the spring and fall. Takes Benadryl as needed with relief. No prior allergy testing or allergy immunotherapy. Current smoker. REVIEW OF SYSTEMS: SINUSITIS: The patient does not suffer from frequent sinopulmonary infections. ASTHMA: The patient has no history of asthma. ECZEMA: The patient has no history of eczema. URTICARIA:The patient does not have a history of urticaria and/or angioedema. GERD: The patient does not have a history of GERD. INSECT STING: The patient does not have a history of systemic reaction to insect sting. FOOD ALLERGY:The patient denies history of food allergy. LATEX: The patient does not have a history of adverse reaction to latex. All other review of systems negative except for those listed above. PAST MEDICAL HISTORY Diagnosis Date Anxiety Bipolar affective disorder, currently depressed, moderate (HCC) 06/29/2019 Diagnosed by [facility] 06/29/2109 Diverticulitis MARTÍNEZ (generalized anxiety disorder) 01/07/2022 Genital warts Hypertension Panic disorder PTSD (post-traumatic stress disorder) Tobacco use disorder 01/07/2022 MEDICATIONS: ALPRAZolam (XANAX) 1 mg tablet Take 1 mg by mouth three times a day. hydroCHLOROthiazide 12.5 mg tablet Take 1 tablet by mouth once daily. ALLERGIES: Allergies As of Date: 12/08/2023 Allergen Noted Reaction CIPROFLOXACIN 08/01/2021 Myalgia SULFA (SULFONAMIDE ANTIBIOTICS) 08/11/2010 Other: See Comments ATIVAN [LORAZEPAM] 08/11/2010 Intolerance COUGH DECONGEST D 03/25/2019 Intolerance NITROFURANTOIN 02/05/2020 Vomiting OFLOXACIN 09/13/2023 Unknown PAXIL [PAROXETINE HCL] 05/26/2011 Shortness of Breath Fully Assessed 12/08/2023 PAST SURGICAL HISTORY Procedure Laterality Date COLONOSCOPY 11/27/2021 adenoma - yearly colonoscopy [facility] HYSTERECTOMY HX LIGATE FALLOPIAN TUBE PAST SURGICAL HISTORY OF bladder repair FAMILY HISTORY: Allergic rhinitis:no. Asthma: no. Eczema: no. Cystic fibrosis: no. Immunodeficiency: no. SOCIAL HISTORY: Employer And Job Title: No employer specified (ssi) Years Of Education Completed: Not specified Marital Status: Social History Tobacco Use Smoking status: Every Day Packs/day: 1 Types: Cigarettes Smokeless tobacco: Never 1/2 PPD ENVIRONMENTAL HISTORY: Lives in a house Age of home: 100 years Heating: forced hot air, gas Woodburning fireplace in the home: no Air conditioning: Window air conditioning Basement: Damp basement Anival: Trxk-sa-zrhn carpeting Dust mite controls: Dust mite controls are not in place. Pets in the home: There are no pets in the home Outdoor animals: 2 cats Tobacco smoke: Exposure in the home. Physical Exam: GENERAL APPEARANCE:Well appearing, alert, in no acute distress, well-hydrated, well nourished. HEENT: NCAT. EYES: Mild conjunctival injection of both eyes EARS: External ears normal. Canals clear. TM's normal. NOSE/SINUS: Nares normal. Septum midline. Mucosa normal. No drainage or sinus tenderness. THROAT: no erythema NECK:neck supple, no adenopathy HEART:RRR with normal S1 and S2 ,no murmurs, no gallops, no rubs LUNGS: clear to auscultation bilaterally, no wheezes, rales or rhonchi ABDOMEN:soft, nontender, nondistended, without organomegaly or palpable masses EXTREMITIES:Extremities normal, No deformities, No skin discoloration, and No edema SKIN: Skin color, t (more content not included)... [facility] 12-08-2023 Instructions Mariluz Vargas MD - 12/08/2023 2:51 PM EST Allergy skin test were negative to a comprehensive panel of environmental allergens including cats, dogs, dust mites, molds, trees, grasses, weeds and ragweed. Continue to follow-up with your eye doctor. documented in this encounter [facility] 12-08-2023 History of Present illness Narrative This is a consultation requested by Florinda Kruse APRN, CNP for an allergy and immunology evaluation. My final recommendations will be communicated back to the requesting healthcare provider(s) by way of shared medical record or via [place] mail. Izzy Khan is a 48 year old female who presents with a 6-month history of red and irritated eyes. Also complains of eye discomfort, matting and intermittent excess tearing. Symptoms started in May,. At that time, her grandson was being treated for bacterial conjunctivitis. The patient was treated with a course of antibiotic eyedrops for 5 to 6 days without relief. Ofloxacin eyedrops were then prescribed which she used for 2 days with worsening of symptoms. Upon subsequent evaluation with Dr. Mendoza, she was treated with Dima Monzon, steroid eyedrops and a course of oral steroids. Symptoms only seem to improve with the steroid eyedrops and/or systemic steroids. Unfortunately, symptoms tend to recur after discontinuing use of the steroids. Dust and mold exposure are possible triggers of her symptoms. Patient also reports some puffiness and erythema of the upper and lower eyelids but denies a prior diagnosis of eyelid eczema. She does not wear contact lenses. Denies use of [id number]-[id number] topical antibiotics to the eyes and eyelids. She also complains of nasal congestion, sneezing, rhinorrhea and postnasal drip occurring in the spring and fall. Takes Benadryl as needed with relief. No prior allergy testing or allergy immunotherapy. Current smoker. REVIEW OF SYSTEMS: SINUSITIS: The patient does not suffer from frequent sinopulmonary infections. ASTHMA: The patient has no history of asthma. ECZEMA: The patient has no history of eczema. URTICARIA:The patient does not have a history of urticaria and/or angioedema. GERD: The patient does not have a history of GERD. INSECT STING: The patient does not have a history of systemic reaction to insect sting. FOOD ALLERGY:The patient denies history of food allergy. LATEX: The patient does not have a history of adverse reaction to latex. All other review of systems negative except for those listed above. PAST MEDICAL HISTORY Diagnosis Date Anxiety Bipolar affective disorder, currently depressed, moderate (HCC) 06/29/2019 [facility] 06/29/2109 Diverticulitis MARTÍNEZ (generalized anxiety disorder) 01/07/2022 Genital warts Hypertension Panic disorder PTSD (post-traumatic stress disorder) Tobacco use disorder 01/07/2022 MEDICATIONS: ALPRAZolam (XANAX) 1 mg tablet Take 1 mg by mouth three times a day. hydroCHLOROthiazide 12.5 mg tablet Take 1 tablet by mouth once daily. ALLERGIES: Allergies As of Date: 12/08/2023 Allergen Noted Reaction CIPROFLOXACIN 08/01/2021 Myalgia SULFA (SULFONAMIDE ANTIBIOTICS) 08/11/2010 Other: See Comments ATIVAN [LORAZEPAM] 08/11/2010 Intolerance COUGH DECONGEST D 03/25/2019 Intolerance NITROFURANTOIN 02/05/2020 Vomiting OFLOXACIN 09/13/2023 Unknown PAXIL [PAROXETINE HCL] 05/26/2011 Shortness of Breath Fully Assessed 12/08/2023 PAST SURGICAL HISTORY Procedure Laterality Date COLONOSCOPY 11/27/2021 adenoma - yearly colonoscopy [facility] HYSTERECTOMY HX LIGATE FALLOPIAN TUBE PAST SURGICAL HISTORY OF bladder repair FAMILY HISTORY: Allergic rhinitis:no. Asthma: no. Eczema: no. Cystic fibrosis: no. Immunodeficiency: no. SOCIAL HISTORY: Employer And Job Title: No employer specified (ssi) Years Of Education Completed: Not specified Marital Status: Social History Tobacco Use Smoking status: Every Day Packs/day: 1 Types: Cigarettes Smokeless tobacco: Never 1/2 PPD ENVIRONMENTAL HISTORY: Lives in a house Age of home: 100 years Heating: forced hot air, gas Woodburning fireplace in the home: no Air conditioning: Window air conditioning Basement: Damp basement Anival: [id number]-hf-xihi carpeting Dust mite controls: Dust mite controls are not in place. Pets in the home: There are no pets in the home Outdoor animals: 2 cats Tobacco smoke: Exposure in the home. Physical Exam: GENERAL APPEARANCE:Well appearing, alert, in no acute distress, well-hydrated, well nourished. HEENT: NCAT. EYES: Mild conjunctival injection of both eyes EARS: External ears normal. Canals clear. TM's normal. NOSE/SINUS: Nares normal. Septum midline. Mucosa normal. No drainage or sinus tenderness. THROAT: no erythema NECK:neck supple, no adenopathy HEART:RRR with normal S1 and S2 ,no murmurs, no gallops, no rubs LUNGS: clear to auscultation bilaterally, no wheezes, rales or rhonchi ABDOMEN:soft, nontender, nondistended, without organomegaly or palpable masses EXTREMITIES:Extremities normal, No deformities, No skin discoloration, and No edema SKIN: Skin color, texture, turgor normal. No rashes or lesions. ALLERGY SKIN TESTS: Negative to a comprehensive panel of inhalant allergens including cats, dogs, dust mites, molds, trees, grasses, weeds, ragweed. ASSESSMENT/PLAN: 1.) Bilateral red eyes Patient was reassured that she does not have IgE-mediated inhalant allergies contributing to her symptoms. Recommend that she continue to follow-up with optometry and/or ophthalmology (If patient develops more significant involvement of the eyelids, suggestive of eyelid eczema, dermatology evaluation may be considered.) 2.) Discussed medication dosage, usage, side effects, and goals of treatment in detail. 3.) Follow-up in PRN - patient will return sooner should new symptoms or problems arise. Mariluz Vargas MD Cc: Dr. Perez Mendoza documented in this encounter [facility] 12-08-2023 Nurse Note Patient here for consult regarding eye irritation that started in May with pink eye. Has had constant eye irration since even with multiple eye drops. Has seasonal allergy symptoms of nasal congestion and drainage with PND, coughing. Suffers year round but mostly in spring and fall. Takes Benadryl as needed. No antihistamine use past 5 days. documented in this encounter [facility] 10-20-2023 Miscellaneous Notes See My Chart message, closing this encounter Florinda Kruse APRN.[employer] Patient calls to review labs completed yesterday. Reviewed with patient. No significant findings. Patient thought potassium would be low based on legs/feet/arms having the cramping feelings and feeling tired with cold feet all the time. Patient asking for [facility] message to be sent to her with any further recommendations for treatment. Judy Klein RN documented in this encounter [facility] 09-13-2023 Note HNO ID: [id number] Author: Jonathan Gonzalez PA-C Service: ? Author Type: Physician Criminal Justice Lawyer Type: Progress Notes Filed: 09/13/2023 7:12 PM Note Text: CC: Patient presents with: Follow Up: htn, meds and soreness under eyes since May HPI Izzy Khan is a 48 year old female who presents today for routine f/u. Ms. Khan indicates a history of hypertension and states that she is feeling well and denies any symptoms referable to elevated blood pressure. Specifically denies headache, chest pain, palpitations, dyspnea, and peripheral edema. Patient denies any side effects of her medication(s) and is compliant with their regimen. She does not check her BP at home. She watches their diet for sodium, low fat and low cholesterol most of the time. Last 3 Encounter BP Readings: Date: BP: 09/13/2023 104/58 08/09/2023 131/90 06/16/2023 138/90 Has had recurrent issues with her eyes since May. Has been seen in both and by an eye doctor, which she states they suspected to be allergic conjunctivitis. Stared on a steroid drop temporarily, which assisted with the redness and swelling. Using an airpurifier, flushing out her eyes, and using pataday drops daily for about 2 months. Every morning she wakes up, her eyes are goopy. Anxiety: Doing EMDR with Dr. Shanique Land through [facility]. She is currently on 1 mg Xanax TID, and the goal is to get off this as she goes through EMDR. Hx of diverticulitis - sees Dr. Puga (GI). C-scope in 03/30, repeat in 3 years. REVIEW OF SYSTEMS See HPI All other systems negative. PAST MEDICAL HISTORY Diagnosis Date Anxiety Bipolar affective disorder, currently depressed, moderate (HCC) 06/29/2019 [facility] 06/29/2109 Diverticulitis MARTÍNEZ (generalized anxiety disorder) 01/07/2022 Genital warts Hypertension Panic disorder PTSD (post-traumatic stress disorder) Tobacco use disorder 01/07/2022 PAST SURGICAL HISTORY Procedure Laterality Date COLONOSCOPY 11/27/2021 adenoma - yearly colonoscopy [facility] HYSTERECTOMY HX LIGATE FALLOPIAN TUBE PAST SURGICAL HISTORY OF bladder repair ALLERGIES Ciprofloxacin, Sulfa (Sulfonamide Antibiotics), Ativan [Lorazepam], Augmentin [Amoxicillin-Pot Clavulanate], Cough Decongest D, Nitrofurantoin, and Paxil [Paroxetine Hcl] MEDICATIONS ALPRAZolam (XANAX) 0.25 mg tablet 1 mg three times daily as needed. hydroCHLOROthiazide 12.5 mg tablet Take 1 tablet by mouth once daily. ARIPiprazole (ABILIFY) 10 mg tablet citalopram (CELEXA) 20 mg tablet ondansetron orally disintegrating (ZOFRAN ODT) 4 mg disintegrating tablet albuterol HFA (PROVENTIL HFA, VENTOLIN HFA) 90 mcg/actuation inhaler Inhale 2 Puffs as instructed every 4 hours as needed for wheezing/shortness of breath. (Patient not taking: Reported on 08/09/2023) FAMILY HISTORY Problem Relation Age of Onset other (HTN) Mother other (HTN, anxiety) Father Prostate Cancer Father other (HTN, ADHD) Sister Anxiety disorder Brother Anxiety disorder Paternal Grandmother Breast Cancer Paternal Grandmother Emphysema Paternal Grandfather Ovarian cancer Other Social History Tobacco Use Smoking status: Former Packs/day: 1 Types: Cigarettes Quit date: 07/19/2021 Years since quittin.1 Smokeless tobacco: Never Vaping Use Vaping Use: Never used Substance Use Topics Alcohol use: Not Currently Drug use: No PHYSICAL EXAM BP 104/58 (BP Site: Left Arm, BP Position: Sitting, BP Cuff Size: Large Adult) Pulse 101 Temp 37.2 ?C (99 ?F) Resp 12 Ht 160 cm (5' 3 ) Wt 66.2 kg (146 lb) LMP 08/11/2010 SpO2 98% BMI 25.86 kg/m? General Appearance: well appearing, in no acute distress, alert Psych: mood and affect broad and appropriate Skin: Skin color, texture, turgor normal for age Eyes: Allergic shiners noted bilaterally Lungs: Lungs clear to auscultation. No wheezing, rhonchi, rales. Heart: RRR without murmur, gallop, or rubs. Extremities: No gross deformities, significant edema, skin discoloration, clubbing or cyanosis. Neurological: Gait normal. No focal neurological deficits. Sensation grossly intact. ASSESSMENT/PLAN: 1. Hypertension, essential - ICD9: 401.9, ICD10: I10 (primary diagnosis) - Controlled - Continue current medications - Recommend home blood pressure monitoring, to bring results to next visit - Encouraged sodium restriction, DASH or Mediterranean diet - Recommend regular aerobic exercise - HYDROCHLOROTHIAZIDE 12.5 MG TABLET - CBC + DIFF - COMP METABOLIC PANEL 2. Other conjunctivitis of both eyes - ICD9: 372.39, ICD10: H10.89 - Referral to Ophthalmology for second opinion regarding allergic conjunctivitis, as patient is still having significant symptoms despite the use of antihistamine eye drop - CONSULT TO OPHTHALMOLOGY 3. History of hypokalemia - ICD9: V12.29, ICD10: Z86.39 As noted on labs from prior hospitalization. We will check updated metabolic (more content not included)... [facility] 09-13-2023 Instructions Jonathan Gonzalez PA-C - 09/13/2023 5:48 PM EST Advise incorporating more potassium rich foods for the time being, including bananas, sweet potatoes, beans, molasses, nuts, meat and poultry, brown and wild rice, bran cereals, as well as whole-wheat breads and pastas. We can continue to monitor this over time, and potentially start a supplement if need be if this persists. documented in this encounter [facility] 09-13-2023 History of Present illness Narrative CC: Patient presents with: Follow Up: htn, meds and soreness under eyes since May HPI Izzy Khan is a 48 year old female who presents today for routine f/u. Ms. Khan indicates a history of hypertension and states that she is feeling well and denies any symptoms referable to elevated blood pressure. Specifically denies headache, chest pain, palpitations, dyspnea, and peripheral edema. Patient denies any side effects of her medication(s) and is compliant with their regimen. She does not check her BP at home. She watches their diet for sodium, low fat and low cholesterol most of the time. Last 3 Encounter BP Readings: Date: BP: 09/13/2023 104/58 08/09/2023 131/90 06/16/2023 138/90 Has had recurrent issues with her eyes since May. Has been seen in both UC and by an eye doctor, which she states they suspected to be allergic conjunctivitis. Stared on a steroid drop temporarily, which assisted with the redness and swelling. Using an airpurifier, flushing out her eyes, and using pataday drops daily for about 2 months. Every morning she wakes up, her eyes are goopy. Anxiety: Doing EMDR with Dr. Shanique Land through [facility]. She is currently on 1 mg Xanax TID, and the goal is to get off this as she goes through EMDR. Hx of diverticulitis - sees Dr. Puga (GI). C-scope in 03/30, repeat in 3 years. REVIEW OF SYSTEMS See HPI All other systems negative. PAST MEDICAL HISTORY Diagnosis Date Anxiety Bipolar affective disorder, currently depressed, moderate (HCC) 06/29/2019 Diagnosed by [facility] 06/29/2109 Diverticulitis MARTÍNEZ (generalized anxiety disorder) 01/07/2022 Genital warts Hypertension Panic disorder PTSD (post-traumatic stress disorder) Tobacco use disorder 01/07/2022 PAST SURGICAL HISTORY Procedure Laterality Date COLONOSCOPY 11/27/2021 adenoma - yearly colonoscopy [facility] HYSTERECTOMY HX LIGATE FALLOPIAN TUBE PAST SURGICAL HISTORY OF bladder repair ALLERGIES Ciprofloxacin, Sulfa (Sulfonamide Antibiotics), Ativan [Lorazepam], Augmentin [Amoxicillin-Pot Clavulanate], Cough Decongest D, Nitrofurantoin, and Paxil [Paroxetine Hcl] MEDICATIONS ALPRAZolam (XANAX) 0.25 mg tablet 1 mg three times daily as needed. hydroCHLOROthiazide 12.5 mg tablet Take 1 tablet by mouth once daily. ARIPiprazole (ABILIFY) 10 mg tablet citalopram (CELEXA) 20 mg tablet ondansetron orally disintegrating (ZOFRAN ODT) 4 mg disintegrating tablet albuterol HFA (PROVENTIL HFA, VENTOLIN HFA) 90 mcg/actuation inhaler Inhale 2 Puffs as instructed every 4 hours as needed for wheezing/shortness of breath. (Patient not taking: Reported on 08/09/2023) FAMILY HISTORY Problem Relation Age of Onset other (HTN) Mother other (HTN, anxiety) Father Prostate Cancer Father other (HTN, ADHD) Sister Anxiety disorder Brother Anxiety disorder Paternal Grandmother Breast Cancer Paternal Grandmother Emphysema Paternal Grandfather Ovarian cancer Other Social History Tobacco Use Smoking status: Former Packs/day: 1 Types: Cigarettes Quit date: 07/19/2021 Years since quittin.1 Smokeless tobacco: Never Vaping Use Vaping Use: Never used Substance Use Topics Alcohol use: Not Currently Drug use: No PHYSICAL EXAM BP 104/58 (BP Site: Left Arm, BP Position: Sitting, BP Cuff Size: Large Adult) Pulse 101 Temp 37.2 C (99 F) Resp 12 Ht 160 cm (5' 3 ) Wt 66.2 kg (146 lb) LMP 08/11/2010 SpO2 98% BMI 25.86 kg/m General Appearance: well appearing, in no acute distress, alert Psych: mood and affect broad and appropriate Skin: Skin color, texture, turgor normal for age Eyes: Allergic shiners noted bilaterally Lungs: Lungs clear to auscultation. No wheezing, rhonchi, rales. Heart: RRR without murmur, gallop, or rubs. Extremities: No gross deformities, significant edema, skin discoloration, clubbing or cyanosis. Neurological: Gait normal. No focal neurological deficits. Sensation grossly intact. ASSESSMENT/PLAN: 1. Hypertension, essential - ICD9: 401.9, ICD10: I10 (primary diagnosis) - Controlled - Continue current medications - Recommend home blood pressure monitoring, to bring results to next visit - Encouraged sodium restriction, DASH or Mediterranean diet - Recommend regular aerobic exercise - HYDROCHLOROTHIAZIDE 12.5 MG TABLET - CBC + DIFF - COMP METABOLIC PANEL 2. Other conjunctivitis of both eyes - ICD9: 372.39, ICD10: H10.89 - Referral to Ophthalmology for second opinion regarding allergic conjunctivitis, as patient is still having significant symptoms despite the use of antihistamine eye drop - CONSULT TO OPHTHALMOLOGY 3. History of hypokalemia - ICD9: V12.29, ICD10: Z86.39 As noted on labs from prior hospitalization. We will check updated metabolic panel to assess - CBC + DIFF - COMP METABOLIC PANEL Follow-up 3 months on labs, hypokalemia, hypertension Prescription instructions reviewed with patient as applicable. Potential red flag symptoms discussed with the patient. Reviewed appropriate action plan to take if red flag symptoms occur. Patient agreeable to treatment plan. Jonathan Gonzalez PA-C documented in this encounter [facility] 08-31-2023 Note Patient Outreach (IN [facility]) IZZY KHAN ([id number]) 1975 F Date Time Provider Department 08/31/23 CRISTA LEVINE During your visit today, we recorded the following information about you: Allergies As of Date: 08/31/2023 Noted Allergy Reaction CIPROFLOXACIN 08/01/2021 17 - Myalgia SULFA (SULFONAMIDE ANTIBIOTICS) 08/11/2010 14 - Other: See Comments Comments: Lowers b/p ATIVAN (LORAZEPAM) 08/11/2010 5 - Intolerance AUGMENTIN (AMOXICILLIN-POT CLAVUL*08/13/2021 14 - Other: See Comments Comments: Caused her to have leg cramps. And tinglling COUGH DECONGEST D 03/25/2019 5 - Intolerance Comments: rapid heartbeat NITROFURANTOIN 02/05/2020 11 - Vomiting PAXIL (PAROXETINE HCL) 05/26/2011 12 - Shortness of Breath Date Reviewed: 08/09/2023 Reviewed by: Leatha Gao MA - Fully Assessed Visit Diagnosis:Hypertension, essential [I10] Order(s):LIPID PANEL BASIC [SQLIPB] Order #: [id number] FUTURE Prescriptions as of 09/03/2023 - ARIPiprazole (ABILIFY) 10 mg tablet - citalopram (CELEXA) 20 mg tablet - ondansetron orally disintegrating (ZOFRAN ODT) 4 mg disintegrating tablet - albuterol HFA (PROVENTIL HFA, VENTOLIN HFA) 90 mcg/actuation inhaler Inhale 2 Puffs as instructed every 4 hours as needed for wheezing/shortness of breath. - hydroCHLOROthiazide (HYDRODIURIL, ESIDRIX) 12.5 mg tablet Take 1 tablet by mouth once daily. - ALPRAZolam (XANAX) 0.25 mg tablet 1 mg three times daily as needed. Problem List As Of Date 08/31/2023 Noted Resolved Vaginitis [N76.0] 07/04/2012 Bipolar affective disorder, currently depressed*06/29/2019 Tobacco use disorder [F17.200] 01/07/2022 MARTÍNEZ (generalized anxiety disorder) [F41.1] 01/07/2022 Tubular adenoma [D36.9] 01/26/2022 Hypokalemia [E87.6] 01/26/2022 Hot flashes [R23.2] 01/26/2022 Encounter Status:Closed by [employer] on 09/03/23 [facility] 08-11-2023 Miscellaneous Notes Patient notified. Patient voiced her frustration. Patient reports she is unable to take motrin due to diverticulitis. Patient questioning why no other CT scans done in the past have shown this fluid. Reports feeling like she is leaking fluid and unsure if it is urine or not. Did offer her appointment on 08/13 and she declined. Transferred to internal medicine to schedule and appointment. DAVID MEANS RN I reviewed CT results. Not convinced that pain is from a ruptured cyst. It is likely physiological fluid in the [place]. I would have her follow up with PCP for further work up. Use heating pad. Motrin 600mg Q6hrs for pain. Pt calling and stated that she was seen in the ED last night for severe pain in her lower back and right side. She had a CT scan done and she was told that she had a ruptured ovarian cyst. She reports that she was given Toradol and Zofran last night. She had relief at the time and then pain began again. She is rating this as an 8-9 on a pain scale. Pain is described as aching, burning like pain. Pt was offered an antibiotic but told them if she didn't need it then don't prescribe it. Unable to sleep last night d/t pain. She has tried NSAID's without relief. Pt was concerned that it was a flare of her Diverticulitis but this was ruled out. Pt wanting to know what else she can do to achieve relief. Please advise Brenda Acuña LPN documented in this encounter [facility] 08-09-2023 Note HNO ID: [id number] Author: Citlaly Sanchez APRN.[employer] ARCHITECT Service: ? Author Type: Nurse Practitioner Type: Progress Notes Filed: 08/09/2023 5:34 PM Note Text: Subjective HPI Izzy Khan is a 48 year old female who presents with left lower back pain and left flank pain and left lower abdominal pain, for the past 3 days. She was treated for diverticulitis on 07/27/23 with augmentin. She is unsure if her pain is due to kidney stone or diverticulitis. She states the pain radiates from her LLQ to her back. Review of Systems Constitutional: Negative for chills and fever. Respiratory: Negative. Cardiovascular: Negative. Gastrointestinal: Positive for abdominal pain. Negative for constipation, diarrhea, nausea and vomiting. Genitourinary: Positive for flank pain. Negative for dysuria, frequency, hematuria and urgency. Musculoskeletal: Positive for back pain. BP 131/90 Pulse 105 Temp 36.8 ?C (98.3 ?F) Resp 18 Wt 66 kg (145 lb 6.4 oz) LMP 08/11/2010 SpO2 98% BMI 25.76 kg/m? PAST MEDICAL HISTORY Diagnosis Date Anxiety Bipolar affective disorder, currently depressed, moderate (HCC) 06/29/2019 [facility] 06/29/2109 Diverticulitis MARTÍNEZ (generalized anxiety disorder) 01/07/2022 Genital warts Hypertension Panic disorder PTSD (post-traumatic stress disorder) Tobacco use disorder 01/07/2022 PAST SURGICAL HISTORY Procedure Laterality Date COLONOSCOPY 11/27/2021 adenoma - yearly colonoscopy [facility] HYSTERECTOMY HX LIGATE FALLOPIAN TUBE PAST SURGICAL HISTORY OF bladder repair ALLERGIES Ciprofloxacin, Sulfa (Sulfonamide Antibiotics), Ativan [Lorazepam], Augmentin [Amoxicillin-Pot Clavulanate], Cough Decongest D, Nitrofurantoin, and Paxil [Paroxetine Hcl] MEDICATIONS ARIPiprazole (ABILIFY) 10 mg tablet citalopram (CELEXA) 20 mg tablet ondansetron orally disintegrating (ZOFRAN ODT) 4 mg disintegrating tablet hydroCHLOROthiazide (HYDRODIURIL, ESIDRIX) 12.5 mg tablet Take 1 tablet by mouth once daily. ALPRAZolam (XANAX) 0.25 mg tablet 1 mg three times daily as needed. albuterol HFA (PROVENTIL HFA, VENTOLIN HFA) 90 mcg/actuation inhaler Inhale 2 Puffs as instructed every 4 hours as needed for wheezing/shortness of breath. (Patient not taking: Reported on 08/09/2023) FAMILY HISTORY Problem Relation Age of Onset other (HTN) Mother other (HTN, anxiety) Father Prostate Cancer Father other (HTN, ADHD) Sister Anxiety disorder Brother Anxiety disorder Paternal Grandmother Breast Cancer Paternal Grandmother Emphysema Paternal Grandfather Ovarian cancer Other Social History Tobacco Use Smoking status: Former Packs/day: 1 Types: Cigarettes Quit date: 07/19/2021 Years since quittin.0 Smokeless tobacco: Never Vaping Use Vaping Use: Never used Substance Use Topics Alcohol use: Not Currently Drug use: No Objective Physical Exam Vitals and nursing note reviewed. Constitutional: General: She is not in acute distress. Appearance: Normal appearance. She is not ill-appearing. HENT: Mouth/Throat: Pharynx: No oropharyngeal exudate or posterior oropharyngeal erythema. Cardiovascular: Rate and Rhythm: Normal rate and regular rhythm. Heart sounds: Normal heart sounds. Pulmonary: Effort: Pulmonary effort is normal. No respiratory distress. Breath sounds: Normal breath sounds. No wheezing or rales. Abdominal: General: There is no distension. Palpations: There is no mass. Tenderness: There is abdominal tenderness in the left lower quadrant. There is no right CVA tenderness, left CVA tenderness or guarding. Skin: General: Skin is warm and dry. Findings: No erythema or rash. Neurological: Mental Status: She is alert. ASSESSMENT/PLAN: 1. Acute left flank pain - ICD9: 789.09, 338.19, ICD10: R10.9 (primary diagnosis) - UA DIP, URINE (POC) 2. Left lower quadrant abdominal pain - ICD9: 789.04, ICD10: R10.32 - UA does not show any sign of kidney stone or UTI. Patient is advised she needs a CT scan of abdomen to rule out diverticulitis. She has a history of this. She is advised she should go to ER for further evaluation and treatment as she is tender in LLQ abdominal area. She verbalized understanding. Citlaly Sanchez APRN.OSEI [facility] 06-16-2023 Note HNO ID: [id number] Author: Will Tracy APRN.[employer] ARCHITECT Service: ? Author Type: Nurse Practitioner Type: Progress Notes Filed: 06/16/2023 6:43 PM Note Text: Subjective HPI HPI Izzy Khan is a 48 year old female who presents today for CC of bilat eye irritation. This started 2.5 weeks ago. Tx with tobramycin at outside [facility] care. S/s not fully improved. Family member with pink eye currently .Patient presents with: Eye Problem: Possible bilateral eye infection x 2.5 weeks PAST MEDICAL HISTORY Diagnosis Date Anxiety Bipolar affective disorder, currently depressed, moderate (HCC) 06/29/2019 Diagnosed by [facility] 06/29/2109 Diverticulitis MARTÍNEZ (generalized anxiety disorder) 01/07/2022 Genital warts Hypertension Panic disorder PTSD (post-traumatic stress disorder) Tobacco use disorder 01/07/2022 PAST SURGICAL HISTORY Procedure Laterality Date COLONOSCOPY 11/27/2021 adenoma - yearly colonoscopy [facility] HYSTERECTOMY HX LIGATE FALLOPIAN TUBE PAST SURGICAL HISTORY OF bladder repair ALLERGIES Ciprofloxacin, Sulfa (Sulfonamide Antibiotics), Ativan [Lorazepam], Augmentin [Amoxicillin-Pot Clavulanate], Cough Decongest D, Nitrofurantoin, and Paxil [Paroxetine Hcl] MEDICATIONS hydroCHLOROthiazide (HYDRODIURIL, ESIDRIX) 12.5 mg tablet Take 1 tablet by mouth once daily. ALPRAZolam (XANAX) 0.25 mg tablet 1 mg three times daily as needed. ofloxacin (OCUFLOX) 0.3 % ophthalmic solution Use 2 Drops in both eyes four times daily for 7 days. albuterol HFA (PROVENTIL HFA, VENTOLIN HFA) 90 mcg/actuation inhaler Inhale 2 Puffs as instructed every 4 hours as needed for wheezing/shortness of breath. FAMILY HISTORY Problem Relation Age of Onset other (HTN) Mother other (HTN, anxiety) Father Prostate Cancer Father other (HTN, ADHD) Sister Anxiety disorder Brother Anxiety disorder Paternal Grandmother Breast Cancer Paternal Grandmother Emphysema Paternal Grandfather Ovarian cancer Other Social History Tobacco Use Smoking status: Former Packs/day: 1.00 Types: Cigarettes Quit date: 07/19/2021 Years since quittin.9 Smokeless tobacco: Never Vaping Use Vaping Use: Never used Substance Use Topics Alcohol use: Not Currently Drug use: No Review of Systems Constitutional: Negative for chills and fever. HENT: Negative for ear discharge, ear pain and sore throat. Eyes: Positive for discharge and redness. Negative for blurred vision, double vision, photophobia and pain. Neurological: Negative for headaches. Objective Blood pressure 138/90, pulse 110, temperature 37.1 ?C (98.8 ?F), resp. rate 22, weight 66.6 kg (146 lb 12.8 oz), last menstrual period 08/11/2010, SpO2 96 %. Physical Exam Constitutional: General: She is not in acute distress. Appearance: She is not toxic-appearing. HENT: Right Ear: Hearing, tympanic membrane and external ear normal. Left Ear: Hearing, tympanic membrane, ear canal and external ear normal. Nose: No mucosal edema. Mouth/Throat: Pharynx: Uvula midline. Eyes: General: Right eye: No discharge. Left eye: No discharge. Conjunctiva/sclera: Right eye: Right conjunctiva is injected. Left eye: Left conjunctiva is injected. Lymphadenopathy: Cervical: Right cervical: No superficial cervical adenopathy. Left cervical: No superficial cervical adenopathy. Comments: No cervical lymphadenopathy bilaterally Neurological: Mental Status: She is oriented to person, place, and time. ASSESSMENT/PLAN: 1. Eye irritation - ICD9: 379.99, ICD10: H57.89 -use medication as prescribed -follow up if symptoms persist f/u with eye dr in 2-3 days - OFLOXACIN 0.3 % EYE DROPS Will Tracy APRN.[facility] 06-16-2023 History of Present illness Narrative Subjective HPI HPI Izzy Khan is a 48 year old female who presents today for CC of bilat eye irritation. This started 2.5 weeks ago. Tx with tobramycin at outside [facility]. S/s not fully improved. Family member with pink eye currently .Patient presents with: Eye Problem: Possible bilateral eye infection x 2.5 weeks PAST MEDICAL HISTORY Diagnosis Date Anxiety Bipolar affective disorder, currently depressed, moderate (HCC) 06/29/2019 [facility] 06/29/2109 Diverticulitis MARTÍNEZ (generalized anxiety disorder) 01/07/2022 Genital warts Hypertension Panic disorder PTSD (post-traumatic stress disorder) Tobacco use disorder 01/07/2022 PAST SURGICAL HISTORY Procedure Laterality Date COLONOSCOPY 11/27/2021 adenoma - yearly colonoscopy [facility] HYSTERECTOMY HX LIGATE FALLOPIAN TUBE PAST SURGICAL HISTORY OF bladder repair ALLERGIES Ciprofloxacin, Sulfa (Sulfonamide Antibiotics), Ativan [Lorazepam], Augmentin [Amoxicillin-Pot Clavulanate], Cough Decongest D, Nitrofurantoin, and Paxil [Paroxetine Hcl] MEDICATIONS hydroCHLOROthiazide (HYDRODIURIL, ESIDRIX) 12.5 mg tablet Take 1 tablet by mouth once daily. ALPRAZolam (XANAX) 0.25 mg tablet 1 mg three times daily as needed. ofloxacin (OCUFLOX) 0.3 % ophthalmic solution Use 2 Drops in both eyes four times daily for 7 days. albuterol HFA (PROVENTIL HFA, VENTOLIN HFA) 90 mcg/actuation inhaler Inhale 2 Puffs as instructed every 4 hours as needed for wheezing/shortness of breath. FAMILY HISTORY Problem Relation Age of Onset other (HTN) Mother other (HTN, anxiety) Father Prostate Cancer Father other (HTN, ADHD) Sister Anxiety disorder Brother Anxiety disorder Paternal Grandmother Breast Cancer Paternal Grandmother Emphysema Paternal Grandfather Ovarian cancer Other Social History Tobacco Use Smoking status: Former Packs/day: 1.00 Types: Cigarettes Quit date: 07/19/2021 Years since quittin.9 Smokeless tobacco: Never Vaping Use Vaping Use: Never used Substance Use Topics Alcohol use: Not Currently Drug use: No Review of Systems Constitutional: Negative for chills and fever. HENT: Negative for ear discharge, ear pain and sore throat. Eyes: Positive for discharge and redness. Negative for blurred vision, double vision, photophobia and pain. Neurological: Negative for headaches. Objective Blood pressure 138/90, pulse 110, temperature 37.1 C (98.8 F), resp. rate 22, weight 66.6 kg (146 lb 12.8 oz), last menstrual period 08/11/2010, SpO2 96 %. Physical Exam Constitutional: General: She is not in acute distress. Appearance: She is not toxic-appearing. HENT: Right Ear: Hearing, tympanic membrane and external ear normal. Left Ear: Hearing, tympanic membrane, ear canal and external ear normal. Nose: No mucosal edema. Mouth/Throat: Pharynx: Uvula midline. Eyes: General: Right eye: No discharge. Left eye: No discharge. Conjunctiva/sclera: Right eye: Right conjunctiva is injected. Left eye: Left conjunctiva is injected. Lymphadenopathy: Cervical: Right cervical: No superficial cervical adenopathy. Left cervical: No superficial cervical adenopathy. Comments: No cervical lymphadenopathy bilaterally Neurological: Mental Status: She is oriented to person, place, and time. ASSESSMENT/PLAN: 1. Eye irritation - ICD9: 379.99, ICD10: H57.89 -use medication as prescribed -follow up if symptoms persist f/u with eye dr in 2-3 days - OFLOXACIN 0.3 % EYE DROPS Will Tracy APRN.CNP documented in this encounter [facility] 05-18-2023 Note Patient Outreach (MAUREEN TNAV) IZZY KHAN ([id number]) 1975 F Date Time Provider Department 05/18/23 ANNAMARIE ESPINAL During your visit today, we recorded the following information about you: Annamarie Espinal Population Health Navigator 05/18/2023 12:16 PM Signed POPULATION HEALTH NAVIGATION OUTREACH Action/FYI Spoke with patient and scheduled wellness PCP updated Appointment added to cancellation list HCC: F31.32 - Bipolar affective disorder, currently depressed, moderate (HCC) - [id number] Last Billed 11/19/2021 Patient Identified by Name and : YES, via phone Outreach Outcome/Action Spoke to patient / parent / legal guardian: Patient scheduled PCP confirmed / updated PCP field updated Did you use a PCP flex slot to schedule this appointment? No Reason for Outreach Care Gap or Scheduling/Wellness visits Payer: Payor: [employer] / Plan: [employer] HMO / Product Type: HMO / Care Gap Reviewed:: Annual Wellness visit Controlling Blood Pressure Reminder: Reminder note to check Health Maintenance for items below Health Maintenance items due: HIV SCREENING Never done BP CONTROLLED (<130/80) Never done DTAP,TDAP,TD(1 - Tdap) Never done LIPID SCREEN Never done Navigation Signature: Annamarie Espinal Population Health Navigator May 18, 2023 11:50 AM Allergies As of Date: 05/18/2023 Noted Allergy Reaction CIPROFLOXACIN 08/01/2021 17 - Myalgia SULFA (SULFONAMIDE ANTIBIOTICS) 08/11/2010 14 - Other: See Comments Comments: Lowers b/p ATIVAN (LORAZEPAM) 08/11/2010 5 - Intolerance AUGMENTIN (AMOXICILLIN-POT CLAVUL*08/13/2021 14 - Other: See Comments Comments: Caused her to have leg cramps. And tinglling COUGH DECONGEST D 03/25/2019 5 - Intolerance Comments: rapid heartbeat NITROFURANTOIN 02/05/2020 11 - Vomiting PAXIL (PAROXETINE HCL) 05/26/2011 12 - Shortness of Breath Date Reviewed: 04/22/2023 Reviewed by: Renetta Ugalde APRN.[employer] ARCHITECT - Fully Assessed Reason for Visit: Population Health Navigation Outreach [3910] Cmt: Ronnie Care Gap Prescriptions as of 05/18/2023 - albuterol HFA (PROVENTIL HFA, VENTOLIN HFA) 90 mcg/actuation inhaler Inhale 2 Puffs as instructed every 4 hours as needed for wheezing/shortness of breath. - hydroCHLOROthiazide (HYDRODIURIL, ESIDRIX) 12.5 mg tablet Take 1 tablet by mouth once daily. - ALPRAZolam (XANAX) 0.25 mg tablet 1 mg three times daily as needed. Problem List As Of Date 05/18/2023 Noted Resolved Vaginitis [N76.0] 07/04/2012 Bipolar affective disorder, currently depressed*06/29/2019 Tobacco use disorder [F17.200] 01/07/2022 MARTÍNEZ (generalized anxiety disorder) [F41.1] 01/07/2022 Tubular adenoma [D36.9] 01/26/2022 Hypokalemia [E87.6] 01/26/2022 Hot flashes [R23.2] 01/26/2022 Encounter Status:Closed by TEDDY POPULATION HEALTH NAVIGANNAMARIE MORELOS on 05/18/23 [facility] 05-18-2023 Note HNO ID: [id number] Author: Annamarie Espinal Population Health Navigator Service: ? Author Type: ? Type: Progress Notes Filed: 05/18/2023 12:16 PM Note Text: POPULATION HEALTH NAVIGATION OUTREACH Action/FYI Spoke with patient and scheduled wellness PCP updated Appointment added to cancellation list HCC: F31.32 - Bipolar affective disorder, currently depressed, moderate (HCC) - [id number] Last Billed 11/19/2021 Patient Identified by Name and : YES, via phone Outreach Outcome/Action Spoke to patient / parent / legal guardian: Patient scheduled PCP confirmed / updated PCP field updated Did you use a PCP flex slot to schedule this appointment? No Reason for Outreach Care Gap or Scheduling/Wellness visits Payer: Payor: RONNIE DAIGLE / Plan: [employer] HMO / Product Type: HMO / Care Gap Reviewed:: Annual Wellness visit Controlling Blood Pressure Reminder: Reminder note to check Health Maintenance for items below Health Maintenance items due: HIV SCREENING Never done BP CONTROLLED (<130/80) Never done DTAP,TDAP,TD(1 - Tdap) Never done LIPID SCREEN Never done Navigation Signature: Annamarie Espinal Population Health Navigator May 18, 2023 11:50 AM [facility] 05-18-2023 History of Present illness Narrative POPULATION HEALTH NAVIGATION OUTREACH Action/FYI Spoke with patient and scheduled wellness PCP updated Appointment added to cancellation list HCC: F31.32 - Bipolar affective disorder, currently depressed, moderate (HCC) - [id number] Last Billed 11/19/2021
Patient Identified by Name and : YES, via phone Outreach Outcome/Action Spoke to patient / parent / legal guardian: Patient scheduled PCP confirmed / updated PCP field updated Did you use a PCP flex slot to schedule this appointment? No Reason for Outreach Care Gap or Scheduling/Wellness visits Payer: Payor: RONNIE DAIGLE / Plan: [employer] HMO / Product Type: HMO / Care Gap Reviewed:: Annual Wellness visit Controlling Blood Pressure Reminder: Reminder note to check Health Maintenance for items below Health Maintenance items due: HIV SCREENING Never done BP CONTROLLED (<130/80) Never done DTAP,TDAP,TD(1 - Tdap) Never done LIPID SCREEN Never done Navigation Signature: Annamarie Espinal Population Health Navigator May 18, 2023 11:50 AM documented in this encounter [facility] 05-17-2023 Miscellaneous Notes Patient notified Diflucan sent. If symptoms are not better in 3-4 days she will need to follow up in the office. Josie Jackson APRN.CNP Patient called c/o vaginal itching X 3 days. Patient states that she purchased Monistat and has used it for 3 days and has not noticed much improvement. Patient stated that she usually requires diflucan to resolve her yeast infections and is asking if she can have Rx sent to [facility]. documented in this encounter [facility] 05-06-2023 Note HNO ID: [id number] Author: Chele Ceja Service: ? Author Type: Ceo Type: Progress Notes Filed: 05/06/2023 3:26 PM Note Text: Radiology Service Progress Note PATIENT NAME: Izzy Khan DATE OF SERVICE: May 06, 2023 TIME: 2:36 PM PATIENT IDENTITY VERIFICATION COMPLETED USING TWO (2) IDENTIFIERS: Name and Date of confirmed by patient verbally. FALL SCREENING: Has the patient had 2 falls in the last year or 1 fall with injury or currently using an Ambulatory Assistive Device (Walker, Cane, Wheelchair, Crutches, etc.)? No PATIENT GENDER DATA: Female. status: : No status: NO. PATIENT RELEVANT IMPLANT DATA REVIEWED: Not Applicable RADIOLOGY DEPARTMENT: Mammography PERIPHERAL IV DATA: Not applicable SIGNED BY: Chele Ceja May 06, 2023 2:36 PM [facility] 05-06-2023 Miscellaneous Notes May 07, 2023 PID: [id number] Izzy Khan [address] [place] [address] Dear Mile Bill, We are pleased to inform you that the results of your recent breast imaging exam on 05/06/2023 are normal. Your mammogram demonstrates that you have dense breast tissue, which could hide abnormalities. Dense breast tissue, in and of itself, is a relatively common condition. Therefore, this information is not provided to cause undue concern; rather, it is to raise your awareness and promote discussion with your health care provider regarding the presence of dense breast tissue in addition to other risk factors. Early detection of cancer is very important. We also understand recommendations regarding breast cancer screening are controversial. Please discuss with your primary care provider which strategy is best for you and whether a mammogram is right for you. Your imaging studies and report will be kept on file at [facility] as part of your permanent medical record and are available for your continuing care. Thank you for allowing us to help in meeting your health care needs. Sincerely, Dr. Gonzalez Interpreting Radiologist [facility] (Normal over 40) documented in this encounter [facility] 05-06-2023 History of Present illness Narrative Radiology Service Progress Note PATIENT NAME: Izzy Khan DATE OF SERVICE: May 06, 2023 TIME: 2:36 PM PATIENT IDENTITY VERIFICATION COMPLETED USING TWO (2) IDENTIFIERS: Name and Date of confirmed by patient verbally. FALL SCREENING: Has the patient had 2 falls in the last year or 1 fall with injury or currently using an Ambulatory Assistive Device (Walker, Cane, Wheelchair, Crutches, etc.)? No PATIENT GENDER DATA: Female. status: : No status: NO. PATIENT RELEVANT IMPLANT DATA REVIEWED: Not Applicable RADIOLOGY DEPARTMENT: Mammography PERIPHERAL IV DATA: Not applicable SIGNED BY: Daron Cejao Miguel A May 06, 2023 2:36 PM documented in this encounter [facility] 04-30-2023 Miscellaneous Notes Spoke with pt and information listed below given. Pt verbalizes understanding. She went to ER and was dx with possible restless legs. Pt feels everything is related to stress. She is doing fine now and declines an ER FU in the office. Pt again reports she is doing fine. Kristy Koehler LPN Please call patient and let her know that her labs were unremarkable. The potassium was within normal limits, so I do not think her symptoms are related to her electrolytes. It doesn't appear as though she had a formal office visit to discuss her symptoms thoroughly, so if the pain is too bad to wait, recommend more urgent eval in the interim at the urgent care or ED, or see if she can be worked in on someone else's schedule sooner. Thanks Jonathan Gonzalez PA-C Pt calling for lab results. Pt has apt on Wednesday to discuss but things are getting worse. Pt having pain and pulsating in feet going up legs. It is worse at night time. Heat is making things worse for pt. She can't get her feet comfortable. Checking to see if pt needs to be seen sooner.Please advise pt. Kristy Koehler LPN documented in this encounter [facility] 04-27-2023 Miscellaneous Notes Appointment made for 05/03/23 at 5:20 with Rachel. Conchita Birch LPN Patient needs appointment to discuss further. Jonathan Gonzalez PA-C Pt calls to report that she had a colonoscopy on 04/[address] Puga. Pt reports she takes HCTZ 12.5 mg daily for bp. Pt reports since colonoscopy she has been having muscle cramping. Pt reports potassium usually runs low. Pt reports Dr. Puga advised pt to eat sweet potatoes, almonds, bananas, ect for potassium. Pt reports she is tired of eating those things and would like to change bp medication so she does not have to worry about low potassium and cramping. Please review and advise. Sally Sorto LPN documented in this encounter [facility] 04-22-2023 Note HNO ID: [id number] Author: Renetta Ugalde APRN.[employer] ARCHITECT Service: ? Author Type: Nurse Practitioner Type: Progress Notes Filed: 04/22/2023 3:10 PM Note Text: Metal Model Builder offered: Patient declines. Izzy Khan is a 47 year old female who presents for problem visit nipple soreness for 1 week(s). HPI: Bilateral nipple hardness and soreness x 1 week. Left more sore than right. New bra with under wire before onset of symptoms. No change in any laundry or hygiene products. No nipple discharge, lumps, redness, skin changes.. Using Aquaphor and tight sports bra, which have helped. Symptoms have improved by 50%. Has had breast tenderness in the past if she does not wear a bra. Concerned because of colon adenoma and family history of postmenopausal breast cancer in PGM. 05/26/2023 Bilateral diagnostic mammogram - left breast with 5 mm fibrocystic tissue. 05/29/2023 - Mammogram with pavel scheduled. Smoker - 1 ppd No caffeine use. Hysterectomy ovary sparing. OB History T0 L3 SAB0 IAB0 Ectopic0 Multiple0 Live Births0 Field Account Manager History LMP: 08/11/2010, Hysterectomy Age at Menarche: Age at First : Age at Menopause: Field Account Manager History Comments: Sexual Activity: Yes; Male Contraception: Tubal Ligation PAST MEDICAL HISTORY Diagnosis Date Anxiety Bipolar affective disorder, currently depressed, moderate (HCC) 06/29/2019 [facility]/29/2109 Diverticulitis MARTÍNEZ (generalized anxiety disorder) 01/07/2022 Genital warts Hypertension Panic disorder PTSD (post-traumatic stress disorder) Tobacco use disorder 01/07/2022 PAST SURGICAL HISTORY Procedure Laterality Date COLONOSCOPY 11/27/2021 adenoma - yearly colonoscopy [facility] HYSTERECTOMY HX LIGATE FALLOPIAN TUBE PAST SURGICAL HISTORY OF bladder repair FAMILY HISTORY Problem Relation Age of Onset other (HTN) Mother other (HTN, anxiety) Father Prostate Cancer Father other (HTN, ADHD) Sister Anxiety disorder Brother Anxiety disorder Paternal Grandmother Breast Cancer Paternal Grandmother Emphysema Paternal Grandfather Ovarian cancer Other Social History Tobacco Use Smoking status: Former Packs/day: 1.00 Types: Cigarettes Quit date: 07/19/2021 Years since quittin.7 Smokeless tobacco: Never Vaping Use Vaping Use: Never used Substance Use Topics Alcohol use: Not Currently Drug use: No Current Outpatient Medications Medication Sig hydroCHLOROthiazide (HYDRODIURIL, ESIDRIX) 12.5 mg tablet Take 1 tablet by mouth once daily. ALPRAZolam (XANAX) 0.25 mg tablet 1 mg three times daily as needed. albuterol HFA (PROVENTIL HFA, VENTOLIN HFA) 90 mcg/actuation inhaler Inhale 2 Puffs as instructed every 4 hours as needed for wheezing/shortness of breath. No current facility-administered medications for this visit. Allergies As of Date: 04/22/2023 Allergen Noted Reaction CIPROFLOXACIN 08/01/2021 Myalgia SULFA (SULFONAMIDE ANTIBIOTICS) 08/11/2010 Other: See Comments ATIVAN [LORAZEPAM] 08/11/2010 Intolerance AUGMENTIN [AMOXICILLIN-POT CLAVUL*08/13/2021 Other: See Comments COUGH DECONGEST D 03/25/2019 Intolerance NITROFURANTOIN 02/05/2020 Vomiting PAXIL [PAROXETINE HCL] 05/26/2011 Shortness of Breath Fully Assessed 04/22/2023 REVIEW OF SYSTEMS Breast: see HPI Allergies and current medication updated:Yes EXAM: BP 126/82 Wt 146 lb (66.2kg) LMP 08/11/2010 GENERAL: pleasant, female in no apparent distress NECK: Supple, full range of motion, and no adenopathy BREAST: soft, symmetric, no dominant mass, normal nipple-areolar complex, no lymphadenopathy, no nipple discharge, and mild nipple tenderness bilaterally. Examined sitting and supine. CHEST: Normal inspiratory effort NEURO: alert and oriented x3,exam grossly non-focal ASSESSMENT/PLAN: 1. Nipple soreness - ICD9: 611.79, ICD10: N64.4 - bilateral. Decreased soreness by 50% over past week - Reassured. Wear supportive bra. - Keep scheduled mammogram appointment for 04/29/2023 Follow-up as needed Renetta Ugalde APRN.[employer]CH[employer] I spent a total of 20 minutes on the date of the service which included preparing to see the patient, [id number] patient care, completing clinical documentation, obtaining and/or reviewing separately obtained history, performing a medically appropriate examination, and counseling and educating the patient/family/caregiver. [facility] 04-12-2023 Note Patient Outreach (MAUREEN TNDANICA) IZZY KHAN ([id number]) 1975 F Date Time Provider Department 04/12/23 CITLALY CHAN During your visit today, we recorded the following information about you: Citlaly Chan MA 04/12/2023 2:20 PM Signed POPULATION HEALTH NAVIGATION OUTREACH Action/FYI SPOKE WITH IZZY. Patient will call back to schedule appointments ANNUAL MEDICARE WELNESS BP CONTROLLED (<130/80) Never done MAMMOGRAM due on 05/26/2023 Patient Identified by Name and : YES, via phone Outreach Outcome/Action Spoke to patient / parent / legal guardian: Patient will return the call or ask for return call Did you use a PCP flex slot to schedule this appointment? No Reason for Outreach Care Gap or Scheduling/Wellness visits Payer: Payor: [employer] [facility] / Plan: [employer] HMO / Product Type: HMO / Care Gap Reviewed:: Annual Wellness visit Breast Cancer screening Controlling Blood Pressure Reminder: Reminder note to check Health Maintenance for items below Health Maintenance items due: HIV SCREENING Never done BP CONTROLLED (<130/80) Never done DTAP,TDAP,TD(1 - Tdap) Never done LIPID SCREEN Never done DIABETES SCREEN Never done MAMMOGRAM due on 05/26/2023 Navigation Signature: Citlaly Chan MA April 12, 2023 9:12 AM Allergies As of Date: 04/12/2023 Noted Allergy Reaction CIPROFLOXACIN 08/01/2021 17 - Myalgia SULFA (SULFONAMIDE ANTIBIOTICS) 08/11/2010 14 - Other: See Comments Comments: Lowers b/p ATIVAN (LORAZEPAM) 08/11/2010 5 - Intolerance AUGMENTIN (AMOXICILLIN-POT CLAVUL*08/13/2021 14 - Other: See Comments Comments: Caused her to have leg cramps. And tinglling COUGH DECONGEST D 03/25/2019 5 - Intolerance Comments: rapid heartbeat NITROFURANTOIN 02/05/2020 11 - Vomiting PAXIL (PAROXETINE HCL) 05/26/2011 12 - Shortness of Breath Date Reviewed: 01/25/2023 Reviewed by: Mary Grace Blunt MA - Fully Assessed Reason for Visit: Population Health Navigation Outreach [3910] Cmt: ACO YARITZA PCSA Prescriptions as of 04/12/2023 - albuterol HFA (PROVENTIL HFA, VENTOLIN HFA) 90 mcg/actuation inhaler Inhale 2 Puffs as instructed every 4 hours as needed for wheezing/shortness of breath. - hydroCHLOROthiazide (HYDRODIURIL, ESIDRIX) 12.5 mg tablet Take 1 tablet by mouth once daily. - ALPRAZolam (XANAX) 0.25 mg tablet 1 mg three times daily as needed. Problem List As Of Date 04/12/2023 Noted Resolved Vaginitis [N76.0] 07/04/2012 Bipolar affective disorder, currently depressed*06/29/2019 Tobacco use disorder [F17.200] 01/07/2022 MARTÍNEZ (generalized anxiety disorder) [F41.1] 01/07/2022 Tubular adenoma [D36.9] 01/26/2022 Hypokalemia [E87.6] 01/26/2022 Hot flashes [R23.2] 01/26/2022 Encounter Status:Closed by CITLALY CHAN on 04/12/23 [facility] 04-12-2023 Note HNO ID: [id number] Author: Citlaly Chan MA Service: ? Author Type: Director Compliance Type: Progress Notes Filed: 04/12/2023 2:20 PM Note Text: POPULATION HEALTH NAVIGATION OUTREACH Action/FYI SPOKE WITH IZZY. Patient will call back to schedule appointments ANNUAL MEDICARE WELNESS BP CONTROLLED (<130/80) Never done MAMMOGRAM due on 05/26/2023 Patient Identified by Name and : YES, via phone Outreach Outcome/Action Spoke to patient / parent / legal guardian: Patient will return the call or ask for return call Did you use a PCP flex slot to schedule this appointment? No Reason for Outreach Care Gap or Scheduling/Wellness visits Payer: Payor: [employer] / Plan: [employer] HMO / Product Type: HMO / Care Gap Reviewed:: Annual Wellness visit Breast Cancer screening Controlling Blood Pressure Reminder: Reminder note to check Health Maintenance for items below Health Maintenance items due: HIV SCREENING Never done BP CONTROLLED (<130/80) Never done DTAP,TDAP,TD(1 - Tdap) Never done LIPID SCREEN Never done DIABETES SCREEN Never done MAMMOGRAM due on 05/26/2023 Navigation Signature: Citlaly Chan MA April 12, 2023 9:12 AM [facility] 04-12-2023 History of Present illness Narrative POPULATION HEALTH NAVIGATION OUTREACH Action/FYI SPOKE WITH IZZY. Patient will call back to schedule appointments ANNUAL MEDICARE WELNESS BP CONTROLLED (<130/80) Never done MAMMOGRAM due on 05/26/2023 Patient Identified by Name and : YES, via phone Outreach Outcome/Action Spoke to patient / parent / legal guardian: Patient will return the call or ask for return call Did you use a PCP flex slot to schedule this appointment? No Reason for Outreach Care Gap or Scheduling/Wellness visits Payer: Payor: [employer] / Plan: [employer] HMO / Product Type: HMO / Care Gap Reviewed:: Annual Wellness visit Breast Cancer screening Controlling Blood Pressure Reminder: Reminder note to check Health Maintenance for items below Health Maintenance items due: HIV SCREENING Never done BP CONTROLLED (<130/80) Never done DTAP,TDAP,TD(1 - Tdap) Never done LIPID SCREEN Never done DIABETES SCREEN Never done MAMMOGRAM due on 05/26/2023 Navigation Signature: Citlaly Chan MA April 12, 2023 9:12 AM documented in this encounter [facility] 01-25-2023 Note HNO ID: [id number] Author: Johnathan Card MD Service: ? Author Type: Physician Type: Progress Notes Filed: 01/25/2023 1:27 PM Note Text: Patient presents with: Cough: Drainage x 4 days HPI: Feeling sick for 5 days. Grandchildren have been sick. Positive symptoms: cough, Shortness of breath from nasal congestion, Nasal Congestion, Rhinorrhea, Post nasal drainage, Fatigue, Negative symptoms: Fever, Chills, Headache, Nausea, Vomiting, Diarrhea, OTC: none. Diagnosed with COVID 12/31/2022. MEDICATIONS: Current Outpatient Medications Medication Sig hydroCHLOROthiazide (HYDRODIURIL, ESIDRIX) 12.5 mg tablet Take 1 tablet by mouth once daily. ALPRAZolam (XANAX) 0.25 mg tablet 1 mg three times daily as needed. albuterol HFA (PROVENTIL HFA, VENTOLIN HFA) 90 mcg/actuation inhaler Inhale 2 Puffs as instructed every 4 hours as needed for wheezing/shortness of breath. No current facility-administered medications for this visit. ALLERGIES: ALLERGIES Allergen Reactions Ciprofloxacin Myalgia Sulfa (Sulfonamide * Other: See Comments Lowers b/p Ativan [Lorazepam] Intolerance Augmentin [Amoxicil* Other: See Comments Caused her to have leg cramps. And tinglling Cough Decongest D Intolerance rapid heartbeat Nitrofurantoin Vomiting Paxil [Paroxetine H* Shortness of Breath VITALS: BP 140/108 Pulse 107 Temp 37.4 ?C (99.3 ?F) Resp 21 Wt 68.8 kg (151 lb 9.6 oz) LMP 08/11/2010 SpO2 99% BMI 26.85 kg/m? PHYSICAL EXAM: GEN: mildly ill appearing HEENT: PERRL, EOMI, conjunctiva clear Ears: canals clear. TMs without erythema, bulge, or effusion Sinuses: non-tender frontal sinus, non-tender maxillary sinuses Throat: moist mucous membranes, mild erythema, no exudate Neck: supple, no thyromegaly, no lymphadenopathy HEART: regular rate and rhythm, no murmurs LUNGS: clear to auscultation, no wheezes or crackles, no increased WOB ASSESSMENT/PLAN: 1. URI, acute - ICD9: 465.9, ICD10: J06.9 - suspect viral URI. Very low risk for recurrent COVID at this time. - Discussed supportive care treatment with rest and analgesia. She will notify GI that she has illness this week and reschedule her colonoscopy. Johnathan Card MD [facility] 01-25-2023 History of Present illness Narrative Patient presents with: Cough: Drainage x 4 days HPI: Feeling sick for 5 days. Grandchildren have been sick. Positive symptoms: cough, Shortness of breath from nasal congestion, Nasal Congestion, Rhinorrhea, Post nasal drainage, Fatigue, Negative symptoms: Fever, Chills, Headache, Nausea, Vomiting, Diarrhea, OTC: none. Diagnosed with COVID 12/31/2022. MEDICATIONS: Current Outpatient Medications Medication Sig hydroCHLOROthiazide (HYDRODIURIL, ESIDRIX) 12.5 mg tablet Take 1 tablet by mouth once daily. ALPRAZolam (XANAX) 0.25 mg tablet 1 mg three times daily as needed. albuterol HFA (PROVENTIL HFA, VENTOLIN HFA) 90 mcg/actuation inhaler Inhale 2 Puffs as instructed every 4 hours as needed for wheezing/shortness of breath. No current facility-administered medications for this visit. ALLERGIES: ALLERGIES Allergen Reactions Ciprofloxacin Myalgia Sulfa (Sulfonamide * Other: See Comments Lowers b/p Ativan [Lorazepam] Intolerance Augmentin [Amoxicil* Other: See Comments Caused her to have leg cramps. And tinglling Cough Decongest D Intolerance rapid heartbeat Nitrofurantoin Vomiting Paxil [Paroxetine H* Shortness of Breath VITALS: BP 140/108 Pulse 107 Temp 37.4 C (99.3 F) Resp 21 Wt 68.8 kg (151 lb 9.6 oz) LMP 08/11/2010 SpO2 99% BMI 26.85 kg/m PHYSICAL EXAM: GEN: mildly ill appearing HEENT: PERRL, EOMI, conjunctiva clear Ears: canals clear. TMs without erythema, bulge, or effusion Sinuses: non-tender frontal sinus, non-tender maxillary sinuses Throat: moist mucous membranes, mild erythema, no exudate Neck: supple, no thyromegaly, no lymphadenopathy HEART: regular rate and rhythm, no murmurs LUNGS: clear to auscultation, no wheezes or crackles, no increased WOB ASSESSMENT/PLAN: 1. URI, acute - ICD9: 465.9, ICD10: J06.9 - suspect viral URI. Very low risk for recurrent COVID at this time. - Discussed supportive care treatment with rest and analgesia. She will notify GI that she has illness this week and reschedule her colonoscopy. Johnathan Card MD documented in this encounter [facility] 01-16-2023 Miscellaneous Notes Patient notified of below response, verbalized understanding Amee Ornelas LPN The temp of 99 signifies she has some acute viral going on right now, a lot of viral stuff is going on right now. Post covid people have had issues like the ones you mentioned but it should get better with time. Regards, Crista Levine MD Pt had COVID earlier and still experiencing the following. Her pulse will go up to 120 with just taking short steps. Pt is still tired , weak and gets dizzy spells. She had these symptoms when she had COVID. Took temp and she is 99.9. She thought they should be going away by now. Asking if there is anything you recommend she do. Please advise. Kristy Koehler LPN documented in this encounter [facility] 01-13-2023 Note HNO ID: [id number] Author: Crista Levine MD Service: ? Author Type: Physician Type: Progress Notes Filed: 01/13/2023 5:08 PM Note Text: Reason for Visit Patient presents with: Follow Up Izzy Khan is a 47 year old female who presents here today for Above Complaints.. Health Maintenance HEPATITIS B(1 of 3 - 3-dose series) COVID-19 VACCINE(1) HEPATITIS C SCREENING HIV SCREENING DTAP,TDAP,TD(1 - Tdap) LIPID SCREEN DIABETES SCREEN COLORECTAL CANCER SCREENING INFLUENZA(1) HPI HTN: Compliant with medications. Denies any chest pain, palpitations, or edema. No SOB. Doesn't check BP at home generally. Careful with diet to avoid salt, trying to eat more fruits and vegetables, not exercising regularly. She is very busy with the grandson though. Side effects if any are tolerable. Waiting to get a colonoscopy on january [address] puga. 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 She had transvaginal US which was normal and she has not had the patient since then. She has slowed down on the smoking a lot as she has to take care of her child No problem-specific Assessment AND Plan notes found for this encounter. PAST MEDICAL HISTORY Diagnosis Date Anxiety Bipolar affective disorder, currently depressed, moderate (HCC) 06/29/2019 [facility] 06/29/2109 Diverticulitis MARTÍNEZ (generalized anxiety disorder) 01/07/2022 Genital warts Hypertension Panic disorder PTSD (post-traumatic stress disorder) Tobacco use disorder 01/07/2022 PAST SURGICAL HISTORY Procedure Laterality Date COLONOSCOPY 11/27/2021 adenoma - yearly colonoscopy [facility] HYSTERECTOMY HX LIGATE FALLOPIAN TUBE PAST SURGICAL HISTORY OF bladder repair FAMILY HISTORY Problem Relation Age of Onset other (HTN) Mother other (HTN, anxiety) Father Prostate Cancer Father other (HTN, ADHD) Sister Anxiety disorder Brother Anxiety disorder Paternal Grandmother Breast Cancer Paternal Grandmother Emphysema Paternal Grandfather Ovarian cancer Other Social History Tobacco Use Smoking status: Former Packs/day: 1.00 Types: Cigarettes Quit date: 07/19/2021 Years since quittin.4 Smokeless tobacco: Never Vaping Use Vaping Use: Never used Substance Use Topics Alcohol use: Not Currently Drug use: No Past medical history, appointments, medications, allergies reviewed. Pertinent Lab/Diagnostic Studies are reviewed and discussed today Current Outpatient Medications: albuterol HFA (PROVENTIL HFA, VENTOLIN HFA) 90 mcg/actuation inhaler hydroCHLOROthiazide (HYDRODIURIL, ESIDRIX) 12.5 mg tablet tiZANidine (ZANAFLEX) 2 mg tablet ALPRAZolam (XANAX) 0.25 mg tablet Review of Systems CONSTITUTIONAL: No fevers, chills night sweats, unintended weight loss CARDIOVASCULAR: No chest pain, dyspnea, palpitations, orthopnea, PND, ankle edema. PULM: No dyspnea, unexplained cough. GI: No dysphagia/odynophagia, problematic reflux, constipation, diarrhea, changes in stool habits, hematochezia, melena. : No new urinary complaints, including dysuria, gross hematuria or pyuria. NEURO: No new balance problems, peripheral weakness/paresthesias or numbness of concern. Physical Exam BP 122/60 (BP Site: Left Arm, BP Position: Sitting, BP Cuff Size: Large Adult) Pulse 107 Temp 36.3 ?C (97.4 ?F) Resp 14 Ht 160 cm (5' 3 ) Wt 68.5 kg (151 lb) LMP 08/11/2010 SpO2 98% BMI 26.75 kg/m? General appearance: Well appearing, alert, in no acute distress, well nourished. Skin: Skin color, texture, turgor normal, no suspicious rashes or lesions Head: Normocephalic, no masses, lesions, tenderness or abnormalities Eyes: Anicteric sclera. Pupils are equally round and reactive to light. Extraocular movements are intact. Lungs: Lungs clear to auscultation. No wheezing, rhonchi, rales Heart: RRR without murmur, gallop, or rubs. Extremities: No deformities, edema, skin discoloration, clubbing or cyanosis. Good capillary refill. ASSESSMENT/PLAN: 1. Hypertension, essential - ICD9: 401.9, ICD10: I10 (primary diagnosis) - good control - Recommended regular aerobic exercise. - Recommend home blood pressure monitoring, to bring results in on next visit - Goal of BP <130/80 - BASIC METABOLIC PNL 2. Screening for HIV (human immunodeficiency virus) - ICD9: V73.89, ICD10: Z11.4 - HIV 1 2 COMBO(AG/AB),WITH REFLEX TO DIFFERENTIATION 3. Special screening examination for viral disease - ICD9: V73.99, ICD10: Z11.59 - HEP C AB IA W/CONF SCRN 4. Encounter for immunization - ICD9: V03.89, ICD10: Z23 She has refused the covid and flu shots 5. Tobacco use disorder - ICD9: 305.1, ICD10: F17.200 - Cessation encouraged. - Physiologic and physical aspects of tobacco addiction as well as strategies for quitting were discussed. - Counseling was given focusin (more content not included)... [facility] 01-13-2023 History of Present illness Narrative Reason for Visit Patient presents with: Follow Up Izzy Khan is a 47 year old female who presents here today for Above Complaints.. Health Maintenance HEPATITIS B(1 of 3 - 3-dose series) COVID-19 VACCINE(1) HEPATITIS C SCREENING HIV SCREENING DTAP,TDAP,TD(1 - Tdap) LIPID SCREEN DIABETES SCREEN COLORECTAL CANCER SCREENING INFLUENZA(1) HPI HTN: Compliant with medications. Denies any chest pain, palpitations, or edema. No SOB. Doesn't check BP at home generally. Careful with diet to avoid salt, trying to eat more fruits and vegetables, not exercising regularly. She is very busy with the grandson though. Side effects if any are tolerable. Waiting to get a colonoscopy on january [address] puga. 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 She had transvaginal US which was normal and she has not had the patient since then. She has slowed down on the smoking a lot as she has to take care of her child No problem-specific Assessment & Plan notes found for this encounter. PAST MEDICAL HISTORY Diagnosis Date Anxiety Bipolar affective disorder, currently depressed, moderate (HCC) 06/29/2019 [facility] 06/29/2109 Diverticulitis MARTÍNEZ (generalized anxiety disorder) 01/07/2022 Genital warts Hypertension Panic disorder PTSD (post-traumatic stress disorder) Tobacco use disorder 01/07/2022 PAST SURGICAL HISTORY Procedure Laterality Date COLONOSCOPY 11/27/2021 adenoma - yearly colonoscopy [facility] HYSTERECTOMY HX LIGATE FALLOPIAN TUBE PAST SURGICAL HISTORY OF bladder repair FAMILY HISTORY Problem Relation Age of Onset other (HTN) Mother other (HTN, anxiety) Father Prostate Cancer Father other (HTN, ADHD) Sister Anxiety disorder Brother Anxiety disorder Paternal Grandmother Breast Cancer Paternal Grandmother Emphysema Paternal Grandfather Ovarian cancer Other Social History Tobacco Use Smoking status: Former Packs/day: 1.00 Types: Cigarettes Quit date: 07/19/2021 Years since quittin.4 Smokeless tobacco: Never Vaping Use Vaping Use: Never used Substance Use Topics Alcohol use: Not Currently Drug use: No Past medical history, appointments, medications, allergies reviewed. Pertinent Lab/Diagnostic Studies are reviewed and discussed today Current Outpatient Medications: albuterol HFA (PROVENTIL HFA, VENTOLIN HFA) 90 mcg/actuation inhaler hydroCHLOROthiazide (HYDRODIURIL, ESIDRIX) 12.5 mg tablet tiZANidine (ZANAFLEX) 2 mg tablet ALPRAZolam (XANAX) 0.25 mg tablet Review of Systems CONSTITUTIONAL: No fevers, chills night sweats, unintended weight loss CARDIOVASCULAR: No chest pain, dyspnea, palpitations, orthopnea, PND, ankle edema. PULM: No dyspnea, unexplained cough. GI: No dysphagia/odynophagia, problematic reflux, constipation, diarrhea, changes in stool habits, hematochezia, melena. : No new urinary complaints, including dysuria, gross hematuria or pyuria. NEURO: No new balance problems, peripheral weakness/paresthesias or numbness of concern. Physical Exam BP 122/60 (BP Site: Left Arm, BP Position: Sitting, BP Cuff Size: Large Adult) Pulse 107 Temp 36.3 C (97.4 F) Resp 14 Ht 160 cm (5' 3 ) Wt 68.5 kg (151 lb) LMP 08/11/2010 SpO2 98% BMI 26.75 kg/m General appearance: Well appearing, alert, in no acute distress, well nourished. Skin: Skin color, texture, turgor normal, no suspicious rashes or lesions Head: Normocephalic, no masses, lesions, tenderness or abnormalities Eyes: Anicteric sclera. Pupils are equally round and reactive to light. Extraocular movements are intact. Lungs: Lungs clear to auscultation. No wheezing, rhonchi, rales Heart: RRR without murmur, gallop, or rubs. Extremities: No deformities, edema, skin discoloration, clubbing or cyanosis. Good capillary refill. ASSESSMENT/PLAN: 1. Hypertension, essential - ICD9: 401.9, ICD10: I10 (primary diagnosis) - good control - Recommended regular aerobic exercise. - Recommend home blood pressure monitoring, to bring results in on next visit - Goal of BP <130/80 - BASIC METABOLIC PNL 2. Screening for HIV (human immunodeficiency virus) - ICD9: V73.89, ICD10: Z11.4 - HIV 1 2 COMBO(AG/AB),WITH REFLEX TO DIFFERENTIATION 3. Special screening examination for viral disease - ICD9: V73.99, ICD10: Z11.59 - HEP C AB IA W/CONF SCRN 4. Encounter for immunization - ICD9: V03.89, ICD10: Z23 She has refused the covid and flu shots 5. Tobacco use disorder - ICD9: 305.1, ICD10: F17.200 - Cessation encouraged. - Physiologic and physical aspects of tobacco addiction as well as strategies for quitting were discussed. - Counseling was given focusing on the harmful effects of this addiction especially given the patient's medical condition(s) which will be worsened because of the chemicals in tobacco. Crista Levine MD documented in this encounter [facility] 12-31-2022 Miscellaneous Notes Patient notified and verbalized understanding of instructions given.Karis Bryant LPN Please call patient and let her know she has COVID-19. She has had symptoms x1 week, so is not a candidate for the antiviral. Tylenol, Motrin, prednisone as prescribed. Follow-up with PCP. documented in this encounter [facility] 12-31-2022 Note HNO ID: [id number] Author: RT Khushi(R) Service: Nuclear Medicine Author Type: Technologist Type: Progress Notes Filed: 12/31/2022 11:17 AM Note Text: Radiology Service Progress Note PATIENT NAME: Izzy Khan DATE OF SERVICE: December 31, 2022 TIME: 11:12 AM PATIENT IDENTITY VERIFICATION COMPLETED USING TWO (2) IDENTIFIERS: Name and Date of confirmed by patient verbally. FALL SCREENING: Has the patient had 2 falls in the last year or 1 fall with injury or currently using an Ambulatory Assistive Device (Walker, Cane, Wheelchair, Crutches, etc.)? No PATIENT GENDER DATA: Female. status: : No status: NO. PATIENT RELEVANT IMPLANT DATA REVIEWED: Not Applicable RADIOLOGY DEPARTMENT: General X-ray: Exam(s) Completed: Chest X-Ray PERIPHERAL IV DATA: Not applicable SIGNED BY: RT Khushi(R) December 31, 2022 11:12 AM [facility] 12-31-2022 Note HNO ID: [id number] Author: MAO Posada Service: ? Author Type: Physician Criminal Justice Lawyer Type: Progress Notes Filed: 12/31/2022 11:30 AM Note Text: This note was created using [employer]. Subjective Izzy Khan is a 47 year old female. HPI 87-year-old female presents for congestion, cough, fevers x1 week. Patient states she has had a cough for about a week along with sore throat, body aches, headaches. She states that she is coughing up phlegm. She states she had a fever a few days ago with a Tmax of 103 ?F. This is now resolved. States she is a smoker. She has history of pneumonia and bronchitis. No known diagnosis of COPD or asthma. No chest pain or shortness of breath. No vomiting or diarrhea. PAST MEDICAL HISTORY Diagnosis Date Anxiety Bipolar affective disorder, currently depressed, moderate (HCC) 06/29/2019 [facility] 06/29[facility]2109 Diverticulitis MARTÍNEZ (generalized anxiety disorder) 01/07/2022 Genital warts Hypertension Panic disorder PTSD (post-traumatic stress disorder) Tobacco use disorder 01/07/2022 PAST SURGICAL HISTORY Procedure Laterality Date COLONOSCOPY 11/27/2021 adenoma - yearly colonoscopy [facility] HYSTERECTOMY HX LIGATE FALLOPIAN TUBE PAST SURGICAL HISTORY OF bladder repair ALLERGIES Ciprofloxacin, Sulfa (Sulfonamide Antibiotics), Ativan [Lorazepam], Augmentin [Amoxicillin-Pot Clavulanate], Cough Decongest D, Nitrofurantoin, and Paxil [Paroxetine Hcl] MEDICATIONS hydroCHLOROthiazide (HYDRODIURIL, ESIDRIX) 12.5 mg tablet Take 1 tablet by mouth once daily. tiZANidine (ZANAFLEX) 2 mg tablet Take 1 tablet by mouth every 8 hours as needed. imiquimod (ALDARA) 5 % cream Apply 1 Packet to affected area every other day at bedtime. ALPRAZolam (XANAX) 0.25 mg tablet 1 mg three times daily as needed. FAMILY HISTORY Problem Relation Age of Onset other (HTN) Mother other (HTN, anxiety) Father Prostate Cancer Father other (HTN, ADHD) Sister Anxiety disorder Brother Anxiety disorder Paternal Grandmother Breast Cancer Paternal Grandmother Emphysema Paternal Grandfather Ovarian cancer Other Social History Tobacco Use Smoking status: Former Packs/day: 1.00 Types: Cigarettes Quit date: 07/19/2021 Years since quittin.4 Smokeless tobacco: Never Vaping Use Vaping Use: Never used Substance Use Topics Alcohol use: Not Currently Drug use: No Review of Systems Constitutional: Positive for chills, fatigue and fever. HENT: Positive for congestion and sore throat. Negative for ear pain. Respiratory: Positive for cough. Negative for shortness of breath. Cardiovascular: Negative for chest pain. Gastrointestinal: Negative for diarrhea and vomiting. Objective BP 112/78 Pulse 103 Temp 37.2 ?C (98.9 ?F) (Tympanic) Resp 18 Wt 67.2 kg (148 lb 3.2 oz) LMP 08/11/2010 SpO2 98% BMI 26.25 kg/m? Physical Exam Vitals and nursing note reviewed. Constitutional: General: She is not in acute distress. Appearance: Normal appearance. She is not toxic-appearing. HENT: Right Ear: Tympanic membrane and ear canal normal. Left Ear: Tympanic membrane and ear canal normal. Nose: Nose normal. Mouth/Throat: Mouth: Mucous membranes are moist. Pharynx: No oropharyngeal exudate or posterior oropharyngeal erythema. Eyes: Conjunctiva/sclera: Conjunctivae normal. Cardiovascular: Rate and Rhythm: Normal rate and regular rhythm. Pulmonary: Effort: Pulmonary effort is normal. Breath sounds: Decreased breath sounds present. No wheezing or rhonchi. Neurological: Mental Status: She is alert. Assessment and Plan ASSESSMENT/PLAN: 1. Bronchitis - ICD9: 490, ICD10: J40 (primary diagnosis) - Patient is a smoker. Possibly a component of COPD? -No findings on CXR. -Rx for prednisone and albuterol inhaler 2. Acute cough - ICD9: 786.2, ICD10: R05.1 - XR CHEST 2V FRONTAL/LAT-no acute finding - COVID WITH FLUA+B, ROUTINE -Out of window for Tamiflu and antiviral 3. Smoker - ICD9: 305.1, ICD10: F17.200 Diagnosis and treatment plan were discussed and questions were answered to the patient's satisfaction. Pt acknowledged understanding of concepts and follow up plan. Specific signs and symptoms that would indicate the need for higher level of care were discussed in detail warranting prompt ER evaluation. MAO Posada [facility] 12-31-2022 History of Present illness Narrative This note was created using Tapdaqter. Subjective Izzy Khan is a 47 year old female. HPI 87-year-old female presents for congestion, cough, fevers x1 week. Patient states she has had a cough for about a week along with sore throat, body aches, headaches. She states that she is coughing up phlegm. She states she had a fever a few days ago with a Tmax of 103 F. This is now resolved. States she is a smoker. She has history of pneumonia and bronchitis. No known diagnosis of COPD or asthma. No chest pain or shortness of breath. No vomiting or diarrhea. PAST MEDICAL HISTORY Diagnosis Date Anxiety Bipolar affective disorder, currently depressed, moderate (HCC) 06/29/2019 [facility] 06/29/2109 Diverticulitis MARTÍNEZ (generalized anxiety disorder) 01/07/2022 Genital warts Hypertension Panic disorder PTSD (post-traumatic stress disorder) Tobacco use disorder 01/07/2022 PAST SURGICAL HISTORY Procedure Laterality Date COLONOSCOPY 11/27/2021 adenoma - yearly colonoscopy [facility] HYSTERECTOMY HX LIGATE FALLOPIAN TUBE PAST SURGICAL HISTORY OF bladder repair ALLERGIES Ciprofloxacin, Sulfa (Sulfonamide Antibiotics), Ativan [Lorazepam], Augmentin [Amoxicillin-Pot Clavulanate], Cough Decongest D, Nitrofurantoin, and Paxil [Paroxetine Hcl] MEDICATIONS hydroCHLOROthiazide (HYDRODIURIL, ESIDRIX) 12.5 mg tablet Take 1 tablet by mouth once daily. tiZANidine (ZANAFLEX) 2 mg tablet Take 1 tablet by mouth every 8 hours as needed. imiquimod (ALDARA) 5 % cream Apply 1 Packet to affected area every other day at bedtime. ALPRAZolam (XANAX) 0.25 mg tablet 1 mg three times daily as needed. FAMILY HISTORY Problem Relation Age of Onset other (HTN) Mother other (HTN, anxiety) Father Prostate Cancer Father other (HTN, ADHD) Sister Anxiety disorder Brother Anxiety disorder Paternal Grandmother Breast Cancer Paternal Grandmother Emphysema Paternal Grandfather Ovarian cancer Other Social History Tobacco Use Smoking status: Former Packs/day: 1.00 Types: Cigarettes Quit date: 07/19/2021 Years since quittin.4 Smokeless tobacco: Never Vaping Use Vaping Use: Never used Substance Use Topics Alcohol use: Not Currently Drug use: No Review of Systems Constitutional: Positive for chills, fatigue and fever. HENT: Positive for congestion and sore throat. Negative for ear pain. Respiratory: Positive for cough. Negative for shortness of breath. Cardiovascular: Negative for chest pain. Gastrointestinal: Negative for diarrhea and vomiting. Objective BP 112/78 Pulse 103 Temp 37.2 C (98.9 F) (Tympanic) Resp 18 Wt 67.2 kg (148 lb 3.2 oz) LMP 08/11/2010 SpO2 98% BMI 26.25 kg/m Physical Exam Vitals and nursing note reviewed. Constitutional: General: She is not in acute distress. Appearance: Normal appearance. She is not toxic-appearing. HENT: Right Ear: Tympanic membrane and ear canal normal. Left Ear: Tympanic membrane and ear canal normal. Nose: Nose normal. Mouth/Throat: Mouth: Mucous membranes are moist. Pharynx: No oropharyngeal exudate or posterior oropharyngeal erythema. Eyes: Conjunctiva/sclera: Conjunctivae normal. Cardiovascular: Rate and Rhythm: Normal rate and regular rhythm. Pulmonary: Effort: Pulmonary effort is normal. Breath sounds: Decreased breath sounds present. No wheezing or rhonchi. Neurological: Mental Status: She is alert. Assessment and Plan ASSESSMENT/PLAN: 1. Bronchitis - ICD9: 490, ICD10: J40 (primary diagnosis) - Patient is a smoker. Possibly a component of COPD? -No findings on CXR. -Rx for prednisone and albuterol inhaler 2. Acute cough - ICD9: 786.2, ICD10: R05.1 - XR CHEST 2V FRONTAL/LAT-no acute finding - COVID WITH FLUA+B, ROUTINE -Out of window for Tamiflu and antiviral 3. Smoker - ICD9: 305.1, ICD10: F17.200 Diagnosis and treatment plan were discussed and questions were answered to the patient's satisfaction. Pt acknowledged understanding of concepts and follow up plan. Specific signs and symptoms that would indicate the need for higher level of care were discussed in detail warranting prompt ER evaluation. MAO Posada documented in this encounter [facility] 12-29-2022 Note Patient Outreach (IN [facility]) IZZY KHAN ([id number]) 1975 F Date Time Provider Department 12/29/22 CRISTA LEVINE During your visit today, we recorded the following information about you: Allergies As of Date: 12/29/2022 Noted Allergy Reaction CIPROFLOXACIN 08/01/2021 17 - Myalgia SULFA (SULFONAMIDE ANTIBIOTICS) 08/11/2010 14 - Other: See Comments Comments: Lowers b/p ATIVAN (LORAZEPAM) 08/11/2010 5 - Intolerance AUGMENTIN (AMOXICILLIN-POT CLAVUL*08/13/2021 14 - Other: See Comments Comments: Caused her to have leg cramps. And tinglling COUGH DECONGEST D 03/25/2019 5 - Intolerance Comments: rapid heartbeat NITROFURANTOIN 02/05/2020 11 - Vomiting PAXIL (PAROXETINE HCL) 05/26/2011 12 - Shortness of Breath Date Reviewed: 09/15/2022 Reviewed by: Renetta Ugalde APRN.[employer]CHITECT - Fully Assessed Visit Diagnosis:Other secondary hypertension [I15.8] Order(s):LIPID PANEL BASIC [SQLIPB] Order #: [id number] FUTURE SCHEDULE LAB TESTING [[id number]] Order #: [id number] FUTURE Prescriptions as of 01/01/2023 - predniSONE (DELTASONE) 20 mg tablet Take 2 tablets by mouth once daily for 5 days. Take daily with food. - albuterol HFA (PROVENTIL HFA, VENTOLIN HFA) 90 mcg/actuation inhaler Inhale 2 Puffs as instructed every 4 hours as needed for wheezing/shortness of breath. - hydroCHLOROthiazide (HYDRODIURIL, ESIDRIX) 12.5 mg tablet Take 1 tablet by mouth once daily. - tiZANidine (ZANAFLEX) 2 mg tablet Take 1 tablet by mouth every 8 hours as needed. - imiquimod (ALDARA) 5 % cream Apply 1 Packet to affected area every other day at bedtime. - ALPRAZolam (XANAX) 0.25 mg tablet 1 mg three times daily as needed. Problem List As Of Date 12/29/2022 Noted Resolved Vaginitis [N76.0] 07/04/2012 Bipolar affective disorder, currently depressed*06/29/2019 Tobacco use disorder [F17.200] 01/07/2022 MARTÍNEZ (generalized anxiety disorder) [F41.1] 01/07/2022 Tubular adenoma [D36.9] 01/26/2022 Hypokalemia [E87.6] 01/26/2022 Hot flashes [R23.2] 01/26/2022 Encounter Status:Closed by centroseUSER on 01/01/23 [facility] 11-18-2022 Miscellaneous Notes Patient phones requesting refills as follows: Requested Prescriptions Pending Prescriptions Disp Refills hydroCHLOROthiazide (HYDRODIURIL, ESIDRIX) 12.5 mg tablet 90 tablet 3 Sig: Take 1 tablet by mouth once daily. MARIE-09/11/22 Labs-09/15/22 NOV-01/13/23 med filled 09/18/21 Please review and advise. Maeve Rudd LPN documented in this encounter [facility] 09-30-2022 Note HNO ID: [id number] Author: Sonu Corbin MD Service: ? Author Type: Physician Type: Progress Notes Filed: 09/30/2022 4:14 PM Note Text: VIRTUAL VISIT PROGRESS NOTE This is a virtual visit using ThrowMotion video visit. It required patient-provider interaction for the medical decision making as documented below. Izzy Khan is a 47 year old female seen for renal cyst. HISTORY REVIEWED (electronic chart updated): PAST MEDICAL HISTORY Diagnosis Date Anxiety Bipolar affective disorder, currently depressed, moderate (HCC) 06/29/2019 [facility] 06/29/2109 Diverticulitis MARTÍNEZ (generalized anxiety disorder) 01/07/2022 Genital warts Hypertension Panic disorder PTSD (post-traumatic stress disorder) Tobacco use disorder 01/07/2022 PAST SURGICAL HISTORY Procedure Laterality Date COLONOSCOPY 11/27/2021 adenoma - yearly colonoscopy [facility] HYSTERECTOMY HX LIGATE FALLOPIAN TUBE PAST SURGICAL HISTORY OF bladder repair FAMILY HISTORY Problem Relation Age of Onset other (HTN) Mother other (HTN, anxiety) Father Prostate Cancer Father other (HTN, ADHD) Sister Anxiety disorder Brother Anxiety disorder Paternal Grandmother Breast Cancer Paternal Grandmother Emphysema Paternal Grandfather Ovarian cancer Other Social History Tobacco Use Smoking status: Former Packs/day: 1.00 Types: Cigarettes Quit date: 07/19/2021 Years since quittin.2 Smokeless tobacco: Never Vaping Use Vaping Use: Never used Substance Use Topics Alcohol use: Not Currently Drug use: No Current Outpatient Medications Medication Sig tiZANidine (ZANAFLEX) 2 mg tablet Take 1 tablet by mouth every 8 hours as needed. imiquimod (ALDARA) 5 % cream Apply 1 Packet to affected area every other day at bedtime. hydroCHLOROthiazide (HYDRODIURIL, ESIDRIX) 12.5 mg tablet Take 1 tablet by mouth once daily. ALPRAZolam (XANAX) 0.25 mg tablet 1 mg three times daily as needed. No current facility-administered medications for this visit. ALLERGIES Allergen Reactions Ciprofloxacin Myalgia Sulfa (Sulfonamide * Other: See Comments Lowers b/p Ativan [Lorazepam] Intolerance Augmentin [Amoxicil* Other: See Comments Caused her to have leg cramps. And tinglling Cough Decongest D Intolerance rapid heartbeat Nitrofurantoin Vomiting Paxil [Paroxetine H* Shortness of Breath REVIEW OF SYSTEMS: GENERAL: feeling well without fatigue, no recent change in weight PHYSICAL EXAMINATION: VIDEO EXAM: (if completed, performed via video enabled technology) No exam performed 09/08/2022 CT flank 2mm right stone, otherwise neg 08/21/2022 ABHISHEK stable left cyst 07/31/2021 ABHISHEK left 1.4cm mildly complex cyst 07/28/2021 CT a/p left 1.1cm lower pole lesion PLAN: Renal cyst- pt denies hematuria, repeat ABHISHEK with stable left cyst, no additional follow up needed Shes having some leakage s/p sling in 2008- march call for a referral There are no Patient Instructions on file for this visit. I spent a total of 10 minutes on the date of the service which included preparing to see the patient and [id number] patient care Sonu Corbin MD [facility] 09-30-2022 History of Present illness Narrative VIRTUAL VISIT PROGRESS NOTE This is a virtual visit using ThrowMotion video visit. It required patient-provider interaction for the medical decision making as documented below. Izzy Khan is a 47 year old female seen for renal cyst. HISTORY REVIEWED (electronic chart updated): PAST MEDICAL HISTORY Diagnosis Date Anxiety Bipolar affective disorder, currently depressed, moderate (HCC) 06/29/2019 [facility] 06/29/2109 Diverticulitis MARTÍNEZ (generalized anxiety disorder) 01/07/2022 Genital warts Hypertension Panic disorder PTSD (post-traumatic stress disorder) Tobacco use disorder 01/07/2022 PAST SURGICAL HISTORY Procedure Laterality Date COLONOSCOPY 11/27/2021 adenoma - yearly colonoscopy [facility] HYSTERECTOMY HX LIGATE FALLOPIAN TUBE PAST SURGICAL HISTORY OF bladder repair FAMILY HISTORY Problem Relation Age of Onset other (HTN) Mother other (HTN, anxiety) Father Prostate Cancer Father other (HTN, ADHD) Sister Anxiety disorder Brother Anxiety disorder Paternal Grandmother Breast Cancer Paternal Grandmother Emphysema Paternal Grandfather Ovarian cancer Other Social History Tobacco Use Smoking status: Former Packs/day: 1.00 Types: Cigarettes Quit date: 07/19/2021 Years since quittin.2 Smokeless tobacco: Never Vaping Use Vaping Use: Never used Substance Use Topics Alcohol use: Not Currently Drug use: No Current Outpatient Medications Medication Sig tiZANidine (ZANAFLEX) 2 mg tablet Take 1 tablet by mouth every 8 hours as needed. imiquimod (ALDARA) 5 % cream Apply 1 Packet to affected area every other day at bedtime. hydroCHLOROthiazide (HYDRODIURIL, ESIDRIX) 12.5 mg tablet Take 1 tablet by mouth once daily. ALPRAZolam (XANAX) 0.25 mg tablet 1 mg three times daily as needed. No current facility-administered medications for this visit. ALLERGIES Allergen Reactions Ciprofloxacin Myalgia Sulfa (Sulfonamide * Other: See Comments Lowers b/p Ativan [Lorazepam] Intolerance Augmentin [Amoxicil* Other: See Comments Caused her to have leg cramps. And tinglling Cough Decongest D Intolerance rapid heartbeat Nitrofurantoin Vomiting Paxil [Paroxetine H* Shortness of Breath REVIEW OF SYSTEMS: GENERAL: feeling well without fatigue, no recent change in weight PHYSICAL EXAMINATION: VIDEO EXAM: (if completed, performed via video enabled technology) No exam performed 09/08/2022 CT flank 2mm right stone, otherwise neg 08/21/2022 ABHISHEK stable left cyst 07/31/2021 ABHISHEK left 1.4cm mildly complex cyst 07/28/2021 CT a/p left 1.1cm lower pole lesion PLAN: Renal cyst- pt denies hematuria, repeat ABHISHEK with stable left cyst, no additional follow up needed Shes having some leakage s/p sling in 2008- march call for a referral There are no Patient Instructions on file for this visit. I spent a total of 10 minutes on the date of the service which included preparing to see the patient and [id number] patient care Sonu Corbin MD documented in this encounter [facility] 09-11-2022 History of Present illness Narrative Reason for Visit Patient presents with: ED Follow-up: ER follow up- kidney stones and pain Izzy Khan is a 47 year old female who presents here today for Above Complaints.. Health Maintenance HEPATITIS B(1 of 3 - 3-dose series) COVID-19 VACCINE(1) HEPATITIS C SCREENING HIV SCREENING BP CONTROLLED (<130/80) DTAP,TDAP,TD(1 - Tdap) LIPID SCREEN DIABETES SCREEN COLORECTAL CANCER SCREENING INFLUENZA(1) HPI Patient has been in pain recently and been to the ER was found to have kidneys stones. She points to pain in the back at the kidneys, the stomach and the groin. Urine test is negative. 1. Nonobstructing right renal calculus. There is no other evidence of renal, ureteral or urinary bladder abnormality. 2. Descending and sigmoid diverticulosis without acute inflammatory change. 1. Nonobstructing right renal calculus. There is no other evidence of renal, ureteral or urinary bladder abnormality. 2. Descending and sigmoid diverticulosis without acute inflammatory change. 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 Patient had to see Dr Vivien callaway for GI issues which are better. She did have a colonic adenoma recently which needs a follow up yearly. 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 She is still smoking one cig a day. She does not want wellbutrin Since she has pelvic area pain, she is going to see her slp on Wednesday. No problem-specific Assessment & Plan notes found for this encounter. PAST MEDICAL HISTORY Diagnosis Date Anxiety Bipolar affective disorder, currently depressed, moderate (HCC) 06/29/2019 [facility] 06/29/2109 Diverticulitis MARTÍNEZ (generalized anxiety disorder) 01/07/2022 Genital warts Hypertension Panic disorder PTSD (post-traumatic stress disorder) Tobacco use disorder 01/07/2022 PAST SURGICAL HISTORY Procedure Laterality Date COLONOSCOPY 11/27/2021 adenoma - yearly colonoscopy [facility] HYSTERECTOMY HX LIGATE FALLOPIAN TUBE PAST SURGICAL HISTORY OF bladder repair FAMILY HISTORY Problem Relation Age of Onset other (HTN) Mother other (HTN, anxiety) Father Prostate Cancer Father other (HTN, ADHD) Sister Anxiety disorder Brother Anxiety disorder Paternal Grandmother Breast Cancer Paternal Grandmother Emphysema Paternal Grandfather Ovarian cancer Other Social History Tobacco Use Smoking status: Former Packs/day: 1.00 Types: Cigarettes Quit date: 07/19/2021 Years since quittin.1 Smokeless tobacco: Never Vaping Use Vaping Use: Never used Substance Use Topics Alcohol use: Not Currently Drug use: No Past medical history, appointments, medications, allergies reviewed. Pertinent Lab/Diagnostic Studies are reviewed and discussed today Current Outpatient Medications: imiquimod (ALDARA) 5 % cream hydroCHLOROthiazide (HYDRODIURIL, ESIDRIX) 12.5 mg tablet ALPRAZolam (XANAX) 0.25 mg tablet Review of Systems CONSTITUTIONAL: No fevers, chills night sweats, unintended weight loss CARDIOVASCULAR: No chest pain, dyspnea, palpitations, orthopnea, PND, ankle edema. PULM: No dyspnea, unexplained cough. GI: No dysphagia/odynophagia, problematic reflux, constipation, diarrhea, changes in stool habits, hematochezia, melena. : No new urinary complaints, including dysuria, gross hematuria or pyuria. NEURO: No new balance problems, peripheral weakness/paresthesias or numbness of concern. Physical Exam BP 136/90 (BP Site: Left Arm, BP Position: Sitting, BP Cuff Size: Large Adult) Pulse 105 Temp 36.8 C (98.3 F) Resp 16 Ht 160 cm (5' 3 ) Wt 64.4 kg (142 lb) LMP 08/11/2010 SpO2 98% BMI 25.15 kg/m General appearance: Well appearing, alert, in no acute distress, well nourished. Skin: Skin color, texture, turgor normal, no suspicious rashes or lesions Head: Normocephalic, no masses, lesions, tenderness or abnormalities Eyes: Anicteric sclera. Pupils are equally round and reactive to light. Extraocular movements are intact. Lungs: Lungs clear to auscultation. No wheezing, rhonchi, rales Heart: RRR without murmur, gallop, or rubs. Extremities: No deformities, edema, skin discoloration, clubbing or cyanosis. Good capillary refill. Abdominal exam: patients rectal muscles are tender to touch in the lower abdomen Other gordon abd exam is normal and not tender. Back there some pain in The SI joint left side ASSESSMENT/PLAN: 1. Tubular adenoma - ICD9: 229.9, ICD10: D36.9 (primary diagnosis) She needs regular colonoscopy , seeing Dr Puga and will continue with him. 2. Dysuria - ICD9: 788.1, ICD10: R30.0 acute - Patient education for prevention given - UA DIP, URINE (POC) - URINE CULTURE 3. Tobacco use disorder - ICD9: 305.1, ICD10: F17.200 - Cessation encouraged. - Physiologic and physical aspects of tobacco addiction as well as strategies for quitting were discussed. - Counseling was given focusing on the harmful effects of this addiction especially given the patient's medical condition(s) which will be worsened because of the chemicals in tobacco. 4. Kidney stones - ICD9: 592.0, ICD10: N20.0 There are in the kidney and have not moved down 5. Pelvic pain - ICD9: [id number], ICD10: R10.2 6. Muscle spasm - ICD9: 728.85, ICD10: M62.838 From exertion Crista Levine MD documented in this encounter [facility] 09-07-2022 History of Present illness Narrative Images from the original note were not included. Subjective Patient came in with complaints of abdominal pain and lower back pain. Patient said the abdominal pain is significantly better now and the back pain seems to be better but is still there. Patient says it was more so on the left side. Patient recently had a kidney ultrasound done seen cysts. Patient had some tenderness in the left lower abdomen prior in the week. Patient says she still has her ovaries but no uterus. Patient denies fevers chills nausea vomiting any other symptoms at this time. She says she does have a 4-month-old grandson that she picks up often but this is not new. Patient says she seen her GI doctor and its not diverticulitis. The history is provided by the patient. No speech language pathology assistant was used. Review of Systems Constitutional: Negative. Skin: Negative. Objective Physical Exam Constitutional: Appearance: Normal appearance. Pulmonary: Effort: Pulmonary effort is normal. Abdominal: General: Abdomen is flat. Palpations: Abdomen is soft. Comments: Very mild tenderness when palpated in area marked above no tenderness in any other area. Musculoskeletal: Comments: Also denies any flank tenderness on palpation. Neurological: Mental Status: She is alert. PAST MEDICAL HISTORY Diagnosis Date Anxiety Bipolar affective disorder, currently depressed, moderate (HCC) 06/29/2019 Diagnosed by [facility] 06/29/2109 Diverticulitis MARTÍNEZ (generalized anxiety disorder) 01/07/2022 Genital warts Hypertension Panic disorder PTSD (post-traumatic stress disorder) Tobacco use disorder 01/07/2022 PAST SURGICAL HISTORY Procedure Laterality Date COLONOSCOPY 11/27/2021 adenoma - yearly colonoscopy [facility] HYSTERECTOMY HX LIGATE FALLOPIAN TUBE PAST SURGICAL HISTORY OF bladder repair ALLERGIES Ciprofloxacin, Sulfa (Sulfonamide Antibiotics), Ativan [Lorazepam], Augmentin [Amoxicillin-Pot Clavulanate], Cough Decongest D, Nitrofurantoin, and Paxil [Paroxetine Hcl] MEDICATIONS imiquimod (ALDARA) 5 % cream Apply 1 Packet to affected area every other day at bedtime. hydroCHLOROthiazide (HYDRODIURIL, ESIDRIX) 12.5 mg tablet Take 1 tablet by mouth once daily. ALPRAZolam (XANAX) 0.25 mg tablet 1 mg three times daily as needed. FAMILY HISTORY Problem Relation Age of Onset other (HTN) Mother other (HTN, anxiety) Father Prostate Cancer Father other (HTN, ADHD) Sister Anxiety disorder Brother Anxiety disorder Paternal Grandmother Breast Cancer Paternal Grandmother Emphysema Paternal Grandfather Ovarian cancer Other Social History Tobacco Use Smoking status: Former Packs/day: 1.00 Types: Cigarettes Quit date: 07/19/2021 Years since quittin.1 Smokeless tobacco: Never Vaping Use Vaping Use: Never used Substance Use Topics Alcohol use: Not Currently Drug use: No ASSESSMENT/PLAN: 1. Acute low back pain without sciatica, unspecified back pain laterality - ICD9: 724.2, ICD10: M54.50 - UA DIP, URINE (POC) - URINE CULTURE Patient does not want to go to the ER at this time. Patient recently had kidney ultrasound on the that showed some cysts possible cyst could have ruptured. Patient was instructed to make TECHNICIAN'S HELPER follow-up to rule out cysts on her ovaries. Patient was given strict red flag symptoms such as fever increased pain nausea vomiting and if anything changes or worsens she should go straight to the ER patient was agreeable to this care plan. Urine will be sent out for culture just to verify no urinary tract infection. Destiney Briggs APRN.OSEI Subjective The history is provided by the patient. No speech language pathology assistant was used. ROS Objective Physical Exam documented in this encounter [facility] 08-21-2022 History of Present illness Narrative Radiology Service Progress Note PATIENT NAME: Izzy Khan DATE OF SERVICE: August 21, 2022 TIME: 2:59 PM PATIENT IDENTITY VERIFICATION COMPLETED USING TWO (2) IDENTIFIERS: Name and Date of confirmed by patient verbally. FALL SCREENING: Has the patient had 2 falls in the last year or 1 fall with injury or currently using an Ambulatory Assistive Device (Walker, Cane, Wheelchair, Crutches, etc.)? No PATIENT GENDER DATA: Female. status: : No status: NO. PATIENT RELEVANT IMPLANT DATA REVIEWED: Not Applicable RADIOLOGY DEPARTMENT: Ultrasound PERIPHERAL IV DATA: Not applicable SIGNED BY: Sarah Morfin RDMS August 21, 2022 2:59 PM documented in this encounter [facility] 08-19-2022 Miscellaneous Notes Ultrasound order placed Sonu Corbin MD May we please have new Kidney ultrasound orders placed. Pt is scheduled on 08/21 and orders currently in place will . Thank you very much! Sarah Morfin RDMS [place] documented in this encounter [facility] 07-10-2022 History of Present illness Narrative Metal Model Builder offered: Patient declinesMile Magana is a 47 year old who presents for an annual gynecologic exam with complaints, possible genital warts . Menses: LAVH age late 20's HMB and abnormal cells cervix Contraception: hysterectomy HPV vaccine: No History of abnormal pap: Yes Last mammogram: 2021nomal - fibrocystic tissue in left breast Sexually active: Yes History of STDS: genital warts Patient concerns for STD exposure: No. Time with current partner: 7 years Pain with intercourse: No Postcoital bleeding: No Hot flashes: No Night sweats: No OB History T0 L3 SAB0 IAB0 Ectopic0 Multiple0 Live Births0 Field Account Manager History LMP: 08/11/2010, Hysterectomy Age at Menarche: Age at First : Age at Menopause: Field Account Manager History Comments: Sexual Activity: Yes; Male Contraception: Tubal Ligation PAST MEDICAL HISTORY Diagnosis Date Anxiety Bipolar affective disorder, currently depressed, moderate (HCC) 06/29/2019 [facility] 06/29/2109 Diverticulitis MARTÍNEZ (generalized anxiety disorder) 01/07/2022 Genital warts Hypertension Panic disorder PTSD (post-traumatic stress disorder) Tobacco use disorder 01/07/2022 PAST SURGICAL HISTORY Procedure Laterality Date COLONOSCOPY 11/27/2021 HYSTERECTOMY HX LIGATE FALLOPIAN TUBE PAST SURGICAL HISTORY OF bladder repair FAMILY HISTORY Problem Relation Age of Onset other (HTN) Mother other (HTN, anxiety) Father other (HTN, ADHD) Sister Anxiety disorder Brother Anxiety disorder Paternal Grandmother Breast Cancer Paternal Grandmother Emphysema Paternal Grandfather SOCIAL HISTORY Social History Tobacco Use Smoking status: Former Packs/day: 1.00 Types: Cigarettes Quit date: 07/19/2021 Years since quittin.9 Smokeless tobacco: Never Vaping Use Vaping Use: Never used Substance Use Topics Alcohol use: Not Currently Drug use: No REVIEW OF SYSTEMS Abdomen: No abdominal pain, nausea, vomiting, diarrhea, or constipation. No bloating, early satiety, indigestion, or increased flatulence. Bladder: No dysuria, gross hematuria, urinary frequency, urinary urgency, or incontinence. Breast: No breast lumps, nipple d/c, overlying skin changes, redness or skin retraction. Allergies and current medication updated:Yes EXAM: BP 124/82 Ht 5' 3.25 (1.61m) Wt 142 lb (64.4kg) LMP 08/11/2010 BMI 24.94 kg/(m^2). GENERAL: pleasant, female in no apparent distress HEENT: Normocephalic, atraumatic, mucus membranes moist, and no lesions NECK: Supple, full range of motion, no adenopathy, and thyroid normal DERMATOLOGY: Normal, without lesions, non-icteric, and non-hirsute BREAST: soft, non-tender, symmetric, no dominant mass, normal nipple-areolar complex, no lymphadenopathy, and no nipple discharge CHEST: Normal inspiratory effort ABDOMEN: soft, non-tender, and no masses PELVIC: external genitalia normal, normal Bartholin's glands, urethra, [place]un[place]'s glands, no vulvar lesions, good vaginal support, physiologic discharge present, normal appearing perineal body and perianal region, several genital warts at perineum BIMANUAL: no adnexal masses, non-tender, and uterus surgically absent RECTOVAGINAL: deferred. NEURO: alert and oriented x3,exam grossly non-focal EXTREMITIES: normal ASSESSMENT/PLAN: 1) Health maintenance: Pap no longer needed Mammogram up to date . Nutrition, exercise and routine health maintenance exams reviewed. Smoking cessation: Benefits of smoking cessation reviewed. Patient encouraged to avoid smoking. Genital warts - Imiquimod every other night. Apply with Q-tip - she used this treatment in the past and worked well for her. 2) Contraception: hysterectomy. Contraceptive options reviewed and information provided. 3) STD screening: Declined STD check. 4) Follow up one year or sooner as needed Renetta Ugalde APRN.[employer]UT[employer] ARCHITECT documented in this encounter [facility] 07-08-2022 History of Present illness Narrative Images from the original note were not included. CC: Patient presents with: Lump: C/o warts asking for topical ointment HPI Izzy Khan is a 47 year old female who presents today for lump near perineal area. Noticed it a couple weeks ago. Denies pain, redness, drainage. Has never had anything like this before. REVIEW OF SYSTEMS See HPI PAST MEDICAL HISTORY Diagnosis Date Anxiety Bipolar affective disorder, currently depressed, moderate (HCC) 06/29/2019 [facility]2109 Diverticulitis MARTÍNEZ (generalized anxiety disorder) 01/07/2022 Hypertension Panic disorder PTSD (post-traumatic stress disorder) Tobacco use disorder 01/07/2022 PAST SURGICAL HISTORY Procedure Laterality Date COLONOSCOPY 11/27/2021 HYSTERECTOMY HX LIGATE FALLOPIAN TUBE PAST SURGICAL HISTORY OF bladder repair ALLERGIES Ciprofloxacin, Sulfa (Sulfonamide Antibiotics), Ativan [Lorazepam], Augmentin [Amoxicillin-Pot Clavulanate], Cough Decongest D, Nitrofurantoin, and Paxil [Paroxetine Hcl] MEDICATIONS cloNIDine HCl (CATAPRES) 0.1 mg tablet Take 1 tablet by mouth once daily. hydroCHLOROthiazide (HYDRODIURIL, ESIDRIX) 12.5 mg tablet Take 1 tablet by mouth once daily. ALPRAZolam (XANAX) 0.25 mg tablet 1 mg three times daily as needed. nicotine (NICODERM) 21 mg/24 hr Apply 1 Patch as directed every 24 hours. (Patient not taking: Reported on 07/08/2022) nicotine polacrilex (NICORETTE) 4 mg gum Take 1 Each by mouth as needed. (Patient not taking: Reported on 07/08/2022) gabapentin (NEURONTIN) 100 mg capsule Take 1 capsule by mouth daily at bedtime for 90 days. peg 3350-Electrolytes (GOLYTELY) 236-22.74-6.74 -5.86 gram suspension Refer to printed prep instructions from your provider. nystatin (MYCOSTATIN) 100,000 unit/mL suspension Take 5 mL by mouth four times daily. 1tsp swish in mouth for several minutes, then swallow (or expectorate) 4 times daily until gone. (Patient not taking: Reported on 08/01/2021 ) FAMILY HISTORY Problem Relation Age of Onset other (HTN) Mother other (HTN, anxiety) Father other (HTN, ADHD) Sister Anxiety disorder Brother Anxiety disorder Paternal Grandmother Breast Cancer Paternal Grandmother Emphysema Paternal Grandfather Social History Tobacco Use Smoking status: Former Packs/day: 1.00 Types: Cigarettes Quit date: 07/19/2021 Years since quittin.9 Smokeless tobacco: Never Substance Use Topics Alcohol use: Not Currently Drug use: No PHYSICAL EXAM BP 124/88 Pulse 90 Resp 12 Wt 64.4 kg (142 lb) LMP 08/11/2010 BMI 25.15 kg/m General Appearance: well appearing, in no acute distress, alert ASSESSMENT/PLAN: 1. Skin cyst - ICD9: 706.2, ICD10: L72.9 Unclear etiology. Only felt with deep palpation. No obvious cysts/masses. No signs of infection. Patient very concerned. Recommend follow-up with TECHNICIAN'S HELPER for further evaluation. Prescription instructions reviewed with patient as applicable. Potential red flag symptoms discussed with the patient. Reviewed appropriate action plan to take if red flag symptoms occur. Patient agreeable to treatment plan. Florinda Wolfe APRN.CNP documented in this encounter [facility] 07-08-2022 Instructions Florinda Wolfe APRN.CNP - 07/08/2022 2:54 PM EDT Follow-up with your TECHNICIAN'S HELPER regarding possible genital warts documented in this encounter [facility] 05-26-2022 History of Present illness Narrative Radiology Service Progress Note PATIENT NAME: Izzy Khan DATE OF SERVICE: May 26, 2022 TIME: 3:11 PM PATIENT IDENTITY VERIFICATION COMPLETED USING TWO (2) IDENTIFIERS: Name and Date of confirmed by patient verbally. FALL SCREENING: Has the patient had 2 falls in the last year or 1 fall with injury or currently using an Ambulatory Assistive Device (Walker, Cane, Wheelchair, Crutches, etc.)? No PATIENT GENDER DATA: Female. status: : No status: NO. PATIENT RELEVANT IMPLANT DATA REVIEWED: Not Applicable RADIOLOGY DEPARTMENT: Mammography PERIPHERAL IV DATA: Not applicable SIGNED BY: RT Antonio(R) May 26, 2022 3:11 PM documented in this encounter [facility] 04-22-2022 Miscellaneous Notes Addressed in a phone note. documented in this encounter [facility] 04-21-2022 Miscellaneous Notes Patient notified of providers message but had already talked to the radiologist Sorry but all I can say to patient is that there is something that suggest more views I am not a radiologist so cannot explain to her in detail Pt called and put through to schedule diagnostic mammogram and US of R breast. Pt would still like provider to go over initial mammogram and explain it to her and if she sees anything out of the ordinary. Please call and advise. Pt called in asking if provider could go over mammogram results and call and advise. Pt also needs additional imaging done, asking if provider could put that in so appointment can be made. documented in this encounter [facility] 04-21-2022 Miscellaneous Notes Patient called to schedule callback mammogram documented in this encounter [facility] 04-20-2022 Miscellaneous Notes April 20, 2022 PID: [id number] Izzy Khan [address] [place] [address] Dear Ms. Khan, Your recent breast imaging exam on 04/20/2022 showed a possible finding that requires additional imaging studies for a complete evaluation. Most such findings are probably benign (not cancer). Your mammogram demonstrates that you have dense breast tissue, which could hide abnormalities. Dense breast tissue, in and of itself, is a relatively common condition. Therefore, this information is not provided to cause undue concern; rather, it is to raise your awareness and promote discussion with your health care provider regarding the presence of dense breast tissue in addition to other risk factors. If you have a healthcare provider who ordered/prescribed your screening mammogram: Please call [phone] or [phone]: [phone] to schedule an appointment for your additional imaging (if you have not already done so). If you DO NOT have a healthcare provider (ie you did not have an order/prescription for your screening mammogram): Please call to schedule an appointment for your additional imaging (if you have not already done so). You must have an order/prescription from your physician when calling to schedule your appointment. If your order/prescription is not electronic, you must bring the hard copy with you on the day of your exam to avoid delays. Your imaging studies and reports are kept on file at [facility] as part of your permanent medical record, and are available for your continuing care. Thank you for allowing us to help in meeting your health care needs. Sincerely, Dr. Mota Interpreting Radiologist [facility] (Additional imaging) documented in this encounter [facility] Diagnosis Encounter for screening mammogram for breast cancer [facility] Diagnosis Encounter for screening mammogram for breast cancer documented [facility] encounter [facility]* Diagnosis Breast cancer screening by mammogram documented in this encounter [facility] note* Diagnosis Breast cancer screening by mammogram documented in [facility]* Diagnosis Breast cancer screening by mammogram documented [facility]* Diagnosis Skin cyst- Primary Sebaceous cyst documented in this encounter [facility] note* Diagnosis Encounter for gynecological examination with abnormal finding- Primary Routine gynecological examination Genital warts Condyloma acuminatum Encounter for screening mammogram for breast cancer Dense breast tissue on mammogram documented [facility]* Diagnosis Renal cyst- Primary Unspecified congenital cystic kidney disease documented in this encounter [facility] note* Diagnosis Renal cyst Unspecified congenital cystic kidney disease documented in this encounter [facility] note* Diagnosis Acute low back pain without sciatica, unspecified back pain laterality- Primary documented in this encounter [facility] note* Diagnosis Tubular adenoma- Primary Benign neoplasm of unspecified site Dysuria Tobacco use disorder Kidney stones Calculus of kidney Pelvic pain Muscle spasm Spasm of muscle documented in this encounter [facility] note* Diagnosis Pelvic pain in female- Primary Unspecified symptom associated with female genital organs documented [facility]* Diagnosis Kidney cyst, acquired- Primary Acquired cyst of kidney [facility] Diagnosis Other specified dyspareunia Bilateral flank pain Abdominal pain, unspecified site documented [facility] this encounter [facility]* Diagnosis Hypertension, essential Unspecified essential hypertension documented [facility] this encounter [facility]* Diagnosis Bronchitis- Primary Bronchitis, not specified as acute or chronic Acute cough Smoker Tobacco use disorder [facility] Diagnosis Other secondary hypertension documented [facility] this [facility]* Diagnosis Hypertension, essential- Primary Unspecified essential hypertension Screening for HIV (human immunodeficiency virus) Special screening examination for other specified viral diseases Special screening examination for viral disease Special screening examination for unspecified viral disease Encounter for immunization Need for other specified prophylactic vaccination against single bacterial disease Tobacco use disorder documented in this encounter [facility] note* Diagnosis URI, acute- Primary Acute upper respiratory infections of unspecified site documented [facility]* Diagnosis Eye irritation- Primary Other ill-defined disorder of eye documented [facility] this [facility]* Diagnosis Hypertension, essential Unspecified essential hypertension documented in this encounter [facility] note* Diagnosis Encounter for gynecological examination with abnormal finding Routine gynecological examination Encounter for screening mammogram for breast cancer documented in this encounter [facility] note* Diagnosis Hypertension, essential- Primary Unspecified essential hypertension Other conjunctivitis of both eyes History of hypokalemia Personal history of other endocrine, metabolic, and immunity disorders documented in this encounter [facility] note* Diagnosis Red eyes- Primary Redness or discharge of eye documented in this encounter [facility] note* Diagnosis Rhinosinusitis- Primary Unspecified sinusitis (chronic) Elevated blood pressure reading Elevated blood pressure reading without diagnosis of hypertension documented in this encounter [facility] note* Diagnosis Hypertension, essential- Primary Unspecified essential hypertension Rhinosinusitis Unspecified sinusitis (chronic) documented in this encounter [facility] (narrative)* Diagnostic Procedure Only (Routine) - Authorized Specialty Diagnoses / Procedures Referred By Khoa seth Referred To Contact [facility] Diagnoses Encounter for screening mammogram for breast cancer Procedures ELIGIO SCREENING SCREENING MAMMOGRAPHY BI 2-VIEW BREAST INC Crista Stone MD [address] [place] [address] [facility] [address] [place] [phone] Referral ID Status Reason Start Date Expiration Date Visits Requested Visits Authorized [id number] Authorized Auto-Generat ed Referral 04/15/2022 05/15/2023 1 1 [facility] for referral (narrative)* Diagnostic Procedure Only (Routine) - Closed Specialty Diagnoses / Procedures Referred By Khoa seth Referred To Contact [facility] Diagnoses Encounter for screening mammogram for breast cancer Procedures ELIGIO SCREENING SCREENING MAMMOGRAPHY BI 2-VIEW BREAST INC CAD Crista Levine MD [address] [place] [address] [facility] [address] [place] [address] Referral ID Status Reason Start Date Expiration Date V isits Requested Visits Authorized [id number] Closed Auto-Generate d Referral 04/15/2022 05/15/2023 1 1 [facility] for referral (narrative)* Diagnostic Procedure Only (Routine) - Pending Review Specialty Diagnoses / Procedures [facility] To [facility] Diagnoses Breast cancer screening by mammogram Procedures US BREAST LTD RT US BREAST UNI REAL TIME WITH IMAGE LIMITED Crista Levine MD [address] [place] [address] [facility] [address] [place] [address] Referral ID Status Reason Start Date Expiration Date Visits Requested Visits Authorized [id number] Pending Review Auto-Generat ed Referral 04/21/2022 05/21/2023 1 1 * Diagnostic Procedure Only (Routine) - Authorized Specialty Diagnoses / Procedures Referred By Khoa t Referred To Contact [facility] Diagnoses Breast cancer screening by mammogram Procedures ELIGIO DIAGNOSTIC BILAT DIAGNOSTIC MAMMOGRAPHY COMPUTER-AIDED DETCJ BI Crista Levine MD [address] [place] [address] [facility] [address] [place] [address] Referral ID Status Reason Start Date Expiration Date Visits Requested Visits Authorized [id number] Authorized Auto-Generat ed Referral 04/21/2022 05/21/2023 1 1 [facility] for referral (narrative)* Diagnostic Procedure Only (Routine) - Closed Specialty Diagnoses / Procedures [facility] Referred To Contact [facility] Diagnoses Breast cancer screening by mammogram Procedures US BREAST LTD RT US BREAST UNI REAL TIME WITH IMAGE LIMITED Crista Levine MD [address] [place] [address] [facility] [address] [place] [address] Referral ID Status Reason Start Date Expiration Date V isits Requested Visits Authorized [id number] Closed Auto-Generate d Referral 04/21/2022 05/21/2023 1 1 [facility] for referral (narrative)* Diagnostic Procedure Only (Routine) - Pending Review Specialty Diagnoses / Procedures Referred By Contac t Referred To Contact [facility] Diagnoses Encounter for gynecological examination with abnormal finding Encounter for screening mammogram for breast cancer Procedures ELIGIO SCREENING W PAVEL SCREENING DIGITAL BREAST TOMOSYNTHESIS BI SCREENING MAMMOGRAPHY BI 2-VIEW BREAST INC Renetta Polo APRN.CNP [address] [place] [address] [facility] [address] [place] [address] Referral ID Status Reason Start Date Expiration Date Visits Requested Visits Authorized [id number] Pending Review Auto-Generat ed Referral 07/10/2022 08/09/2023 1 1 [facility] for referral (narrative)* Diagnostic Procedure Only (Routine) - Pending Review Specialty Diagnoses / Procedures Referred By Contac t Referred To Contact [facility] Diagnoses Renal cyst Procedures US KIDNEY/BLADDER US RETROPERITONEAL REAL TIME W/IMAGE COMPLETE Sonu Corbin MD [address] [place] [address] [facility] Referral ID Status Reason Start Date Expiration Date Visits Requested Visits Authorized [id number] Pending Review Auto-Generat ed Referral 09/18/2023 1 1 [facility] for referral (narrative)* Diagnostic Procedure Only (Routine) - Closed Specialty Diagnoses / Procedures Referred By Contac t Referred To Contact [facility] Diagnoses Renal cyst Procedures US KIDNEY/BLADDER US RETROPERITONEAL REAL TIME W/IMAGE COMPLETE Sonu Corbin MD [address] [place] [address] [facility] Referral ID Status Reason Start Date Expiration Date V isits Requested Visits Authorized [id number] Closed Auto-Generate d Referral 08/19/2022 09/18/2023 1 1 [facility] for referral (narrative)* Diagnostic Procedure Only (Routine) - Closed Specialty Diagnoses / Procedures Referred By Contac t Referred To Contact [facility] Diagnoses Encounter for gynecological examination with abnormal finding Encounter for screening mammogram for breast cancer Procedures ELIGIO SCREENING W PAVEL SCREENING DIGITAL BREAST TOMOSYNTHESIS BI SCREENING MAMMOGRAPHY BI 2-VIEW BREAST INC Renetta Polo APRN.CNP [address] [place] [address] [facility] [address] [place] [id number] Referral ID Status Reason Start Date Expiration Date V isits Requested Visits Authorized [id number] Closed Auto-Generate d Referral 07/10/2022 08/09/2023 1 1 T [facility] for visit Narrative* Diagnostic Procedure Only (Routine) - Closed Specialty Diagnoses / Procedures Referred By Contac t Referred To Contact [facility] Diagnoses Encounter for screening mammogram for breast cancer Procedures ELIGIO SCREENING SCREENING MAMMOGRAPHY BI 2-VIEW BREAST INC CAD Crista Levine MD [address] [place] [address] [facility] [address] [place] [address] Referral ID Status Reason Start Date Expiration Date V isits Requested Visits Authorized [id number] Closed Auto-Generate d Referral 04/15/2022 05/15/2023 1 1 [facility] for visit Narrative* Diagnostic Procedure Only (Routine) - Closed Specialty Diagnoses / Procedures Referred By Contac t Referred To Contact [facility] Diagnoses Breast cancer screening by mammogram Procedures US BREAST LTD RT US BREAST UNI REAL TIME WITH IMAGE LIMITED Crista Levine MD [address] [place] [address] [facility] [address] [place] [address] Referral ID Status Reason Start Date Expiration Date V isits Requested Visits Authorized [id number] Closed Auto-Generate d Referral 04/21/2022 05/21/2023 1 1 [facility] for visit Narrative* Diagnostic Procedure Only (Routine) - Closed Specialty Diagnoses / Procedures Referred By Khoa seth Referred To Contact [facility] Diagnoses Breast cancer screening by mammogram Procedures ELIGIO DIAGNOSTIC BILAT DIAGNOSTIC MAMMOGRAPHY COMPUTER-AIDED DETCJ BI Crista Levine MD [address] [place] [address] [facility] [address] [place] [id number] Referral ID Status Reason Start Date Expiration Date V isits Requested Visits Authorized [id number] Closed Auto-Generate d Referral 04/21/2022 05/21/2023 1 1 [facility] for visit Narrative* Diagnostic Procedure Only (Routine) - Closed Specialty Diagnoses / Procedures Referred By Khoa seth Referred To Contact [facility] Diagnoses Other specified dyspareunia Bilateral flank pain Procedures PELVIC US WHI US PELVIC NONOBSTETRIC REAL-TIME IMAGE COMPLETE Renetta Ugalde APRN.[employer] [address] [place] [address] [facility] [address] [place] [address] Referral ID Status Reason Start Date Expiration Date V isits Requested Visits Authorized [id number] Closed Auto-Generate d Referral 09/15/2022 09/15/2023 1 1 [facility] for visit Narrative* Diagnostic Procedure Only (Routine) - Closed Specialty Diagnoses / Procedures Referred By Khoa seth Referred To Contact [facility] Diagnoses Encounter for gynecological examination with abnormal finding Encounter for screening mammogram for breast cancer Procedures ELIGIO SCREENING W PAVEL SCREENING DIGITAL BREAST TOMOSYNTHESIS BI SCREENING MAMMOGRAPHY BI 2-VIEW BREAST INC CAD Renetta Ugalde APRN.[employer] [address] [place] [address] [facility] [address] [place] [address] Referral ID Status Reason Start Date Expiration Date V isits Requested Visits Authorized [id number] Closed Auto-Generate d Referral 07/10/2022 08/09/2023 1 1 [facility] Summary Purpose Family History No Family History Records FoundNo Family History Records FoundNo Family History Records FoundNo Family History Records FoundNo Family History Records FoundNo Family History Records Found Advance Directives No Advanced Directives Records FoundNo Advanced Directives Records FoundNo Advanced Directives Records FoundNo Advanced Directives Records FoundNo Advanced Directives Records FoundNo Advanced Directives Records Found Health Concerns Infection Onset Date Last Indicated Resolved Time COVID-19 Rule-Out 12/31/2022 12/31/2022 Infection Onset Date Last Indicated Resolved Time COVID-19 Rule-Out 12/31/2022 12/31/2022 12/31/2022 7:29 PM EST COVID-19 Confirmed 12/31/2022 12/31/2022 Reason for Referral Specialty Diagnoses / Procedures Referred By Khoa seth Referred To Contact Ophthalmology Diagnoses Other conjunctivitis of both eyes Procedures CONSULT TO OPHTHALMOLOGY OFFICE/OUTPATIENT [facility] 60-74 MINUTES Jonathan Gonzalez PA-C [address] [place] [address] Referral ID Status Reason Start Date Expiration Date Visits Requested Visits Authorized [id number] Pending Review PCP Requested Referral 09/13/2023 09/12/2024 1 1 Additional Source Comments INFORMATION SOURCE (unrecogn ized section and content) DATE CREATED AUTHOR AUTHOR'S ORGANIZ ATION 02/28/2019 [facility] DATE CREATED AUTHOR AUTHOR'S ORGANIZ ATION 10/17/2019 [facility] DATE CREATED AUTHOR AUTHOR'S ORGANIZ ATION 11/15/2020 [facility] DATE CREATED AUTHOR AUTHOR'S ORGANIZ ATION 10/01/2022 [facility] DATE CREATED AUTHOR AUTHOR'S ORGANIZ ATION 12/19/2023 [facility] Source Comments (unrecognize d section and content) In the event this informatio n is protected by the Federal Confidentiality of Alcohol and Drug Abuse Patient Records regulations: The Federal rules restrict any use of the information to criminally investigate or prosecute any alcohol or drug abuse patient.[facility] the event this information is protected by the Federal Confidentiality of Alcohol and Drug Abuse Patient Records regulations: The Federal rules restrict any use of the information to criminally investigate or prosecute any alcohol or drug abuse patient.[facility] SystemIn the event this information is protected by the Federal Confidentiality of Alcohol and Drug Abuse Patient Records regulations: The Federal rules restrict any use of the information to criminally investigate or prosecute any alcohol or drug abuse patient.[facility] SystemIn the event this information is protected by the Federal Confidentiality of Alcohol and Drug Abuse Patient Records regulations: The Federal rules restrict any use of the information to criminally investigate or prosecute any alcohol or drug abuse patient.[facility] SystemIn the event this information is protected by the Federal Confidentiality of Alcohol and Drug Abuse Patient Records regulations: The Federal rules restrict any use of the information to criminally investigate or prosecute any alcohol or drug abuse patient.[facility] SystemIn the event this information is protected by the Federal Confidentiality of Alcohol and Drug Abuse Patient Records regulations: The Federal rules restrict any use of the information to criminally investigate or prosecute any alcohol or drug abuse patient.[facility] SystemIn the event this information is protected by the Federal Confidentiality of Alcohol and Drug Abuse Patient Records regulations: The Federal rules restrict any use of the information to criminally investigate or prosecute any alcohol or drug abuse patient.[facility] SystemIn the event this information is protected by the Federal Confidentiality of Alcohol and Drug Abuse Patient Records regulations: The Federal rules restrict any use of the information to criminally investigate or prosecute any alcohol or drug abuse patient.[facility] SystemIn the event this information is protected by the Federal Confidentiality of Alcohol and Drug Abuse Patient Records regulations: The Federal rules restrict any use of the information to criminally investigate or prosecute any alcohol or drug abuse patient.[facility] SystemIn the event this information is protected by the Federal Confidentiality of Alcohol and Drug Abuse Patient Records regulations: The Federal rules restrict any use of the information to criminally investigate or prosecute any alcohol or drug abuse patient.[facility] SystemIn the event this information is protected by the Federal Confidentiality of Alcohol and Drug Abuse Patient Records regulations: The Federal rules restrict any use of the information to criminally investigate or prosecute any alcohol or drug abuse patient.[facility] SystemIn the event this information is protected by the Federal Confidentiality of Alcohol and Drug Abuse Patient Records regulations: The Federal rules restrict any use of the information to criminally investigate or prosecute any alcohol or drug abuse patient.[facility] SystemIn the event this information is protected by the Federal Confidentiality of Alcohol and Drug Abuse Patient Records regulations: The Federal rules restrict any use of the information to criminally investigate or prosecute any alcohol or drug abuse patient.[facility] SystemIn the event this information is protected by the Federal Confidentiality of Alcohol and Drug Abuse Patient Records regulations: The Federal rules restrict any use of the information to criminally investigate or prosecute any alcohol or drug abuse patient.[facility] SystemIn the event this information is protected by the Federal Confidentiality of Alcohol and Drug Abuse Patient Records regulations: The Federal rules restrict any use of the information to criminally investigate or prosecute any alcohol or drug abuse patient.[facility] SystemIn the event this information is protected by the Federal Confidentiality of Alcohol and Drug Abuse Patient Records regulations: The Federal rules restrict any use of the information to criminally investigate or prosecute any alcohol or drug abuse patient.[facility] SystemIn the event this information is protected by the Federal Confidentiality of Alcohol and Drug Abuse Patient Records regulations: The Federal rules restrict any use of the information to criminally investigate or prosecute any alcohol or drug abuse patient.[facility] SystemIn the event this information is protected by the Federal Confidentiality of Alcohol and Drug Abuse Patient Records regulations: The Federal rules restrict any use of the information to criminally investigate or prosecute any alcohol or drug abuse patient.[facility] SystemIn the event this information is protected by the Federal Confidentiality of Alcohol and Drug Abuse Patient Records regulations: The Federal rules restrict any use of the information to criminally investigate or prosecute any alcohol or drug abuse patient.[facility] SystemIn the event this information is protected by the Federal Confidentiality of Alcohol and Drug Abuse Patient Records regulations: The Federal rules restrict any use of the information to criminally investigate or prosecute any alcohol or drug abuse patient.[facility] SystemIn the event this information is protected by the Federal Confidentiality of Alcohol and Drug Abuse Patient Records regulations: The Federal rules restrict any use of the information to criminally investigate or prosecute any alcohol or drug abuse patient.[facility] SystemIn the event this information is protected by the Federal Confidentiality of Alcohol and Drug Abuse Patient Records regulations: The Federal rules restrict any use of the information to criminally investigate or prosecute any alcohol or drug abuse patient.[facility] SystemIn the event this information is protected by the Federal Confidentiality of Alcohol and Drug Abuse Patient Records regulations: The Federal rules restrict any use of the information to criminally investigate or prosecute any alcohol or drug abuse patient.[facility] SystemIn the event this information is protected by the Federal Confidentiality of Alcohol and Drug Abuse Patient Records regulations: The Federal rules restrict any use of the information to criminally investigate or prosecute any alcohol or drug abuse patient.[facility] SystemIn the event this information is protected by the Federal Confidentiality of Alcohol and Drug Abuse Patient Records regulations: The Federal rules restrict any use of the information to criminally investigate or prosecute any alcohol or drug abuse patient.[facility] SystemIn the event this information is protected by the Federal Confidentiality of Alcohol and Drug Abuse Patient Records regulations: The Federal rules restrict any use of the information to criminally investigate or prosecute any alcohol or drug abuse patient.[facility] SystemIn the event this information is protected by the Federal Confidentiality of Alcohol and Drug Abuse Patient Records regulations: The Federal rules restrict any use of the information to criminally investigate or prosecute any alcohol or drug abuse patient.[facility] SystemIn the event this information is protected by the Federal Confidentiality of Alcohol and Drug Abuse Patient Records regulations: The Federal rules restrict any use of the information to criminally investigate or prosecute any alcohol or drug abuse patient.[facility] SystemIn the event this information is protected by the Federal Confidentiality of Alcohol and Drug Abuse Patient Records regulations: The Federal rules restrict any use of the information to criminally investigate or prosecute any alcohol or drug abuse patient.[facility] SystemIn the event this information is protected by the Federal Confidentiality of Alcohol and Drug Abuse Patient Records regulations: The Federal rules restrict any use of the information to criminally investigate or prosecute any alcohol or drug abuse patient.[facility] SystemIn the event this information is protected by the Federal Confidentiality of Alcohol and Drug Abuse Patient Records regulations: The Federal rules restrict any use of the information to criminally investigate or prosecute any alcohol or drug abuse patient.[facility] SystemIn the event this information is protected by the Federal Confidentiality of Alcohol and Drug Abuse Patient Records regulations: The Federal rules restrict any use of the information to criminally investigate or prosecute any alcohol or drug abuse patient.[facility] SystemIn the event this information is protected by the Federal Confidentiality of Alcohol and Drug Abuse Patient Records regulations: The Federal rules restrict any use of the information to criminally investigate or prosecute any alcohol or drug abuse patient.[facility] SystemIn the event this information is protected by the Federal Confidentiality of Alcohol and Drug Abuse Patient Records regulations: The Federal rules restrict any use of the information to criminally investigate or prosecute any alcohol or drug abuse patient.[facility] SystemIn the event this information is protected by the Federal Confidentiality of Alcohol and Drug Abuse Patient Records regulations: The Federal rules restrict any use of the information to criminally investigate or prosecute any alcohol or drug abuse patient.[facility] SystemIn the event this information is protected by the Federal Confidentiality of Alcohol and Drug Abuse Patient Records regulations: The Federal rules restrict any use of the information to criminally investigate or prosecute any alcohol or drug abuse patient.[facility] SystemIn the event this information is protected by the Federal Confidentiality of Alcohol and Drug Abuse Patient Records regulations: The Federal rules restrict any use of the information to criminally investigate or prosecute any alcohol or drug abuse patient.[facility] SystemIn the event this information is protected by the Federal Confidentiality of Alcohol and Drug Abuse Patient Records regulations: The Federal rules restrict any use of the information to criminally investigate or prosecute any alcohol or drug abuse patient.[facility] SystemIn the event this information is protected by the Federal Confidentiality of Alcohol and Drug Abuse Patient Records regulations: The Federal rules restrict any use of the information to criminally investigate or prosecute any alcohol or drug abuse patient.[facility] SystemIn the event this information is protected by the Federal Confidentiality of Alcohol and Drug Abuse Patient Records regulations: The Federal rules restrict any use of the information to criminally investigate or prosecute any alcohol or drug abuse patient.[facility] SystemIn the event this information is protected by the Federal Confidentiality of Alcohol and Drug Abuse Patient Records regulations: The Federal rules restrict any use of the information to criminally investigate or prosecute any alcohol or drug abuse patient.[facility] SystemIn the event this information is protected by the Federal Confidentiality of Alcohol and Drug Abuse Patient Records regulations: The Federal rules restrict any use of the information to criminally investigate or prosecute any alcohol or drug abuse patient.[facility] SystemIn the event this information is protected by the Federal Confidentiality of Alcohol and Drug Abuse Patient Records regulations: The Federal rules restrict any use of the information to criminally investigate or prosecute any alcohol or drug abuse patient.[facility] Reason for Visit (unrecogniz ed section and content) Reason Comments Mammogram Result Call Back Reason Comments Results Orders Reason Comments Lump C/o warts asking for topical ointment Reason Comments Orders Reason Comments Radiology US Specialty Diagnoses / Procedures Referred By Contac t Referred To Contact [facility] Diagnoses Renal cyst Procedures US KIDNEY/BLADDER US RETROPERITONEAL REAL TIME W/IMAGE COMPLETE Sonu Corbin MD [address] [place] [address] [facility] Referral ID Status Reason Start Date Expiration Date V isits Requested Visits Authorized [id number] Closed Auto-Generate d Referral 08/19/2022 09/18/2023 1 1 Reason Comments Low Back Pain Mid upper abd pain r adiating to low back x5 days Reason Comments ED Follow-up ER follow up- kidney stones and pain 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 Reason Comments Cyst Reason Onset Date Comments Refill Request 11/18/2022 Reason Comments Cough Cough, VERDIN, congestio n, bodyaches and diarrhea x 1 week Reason Comments Results Reason Comments Follow Up Reason Comments Patient Update Reason Comments Cough Drainage x 4 days Reason Onset Date Comments Population Health Navigation Outreach 04/12/2023 [facility] Reason Comments Medication Problem Reason Comments results/patient update Reason Comments Vaginal Problem Reason Onset Date Comments Population Health Navigation Outreach 05/18/2023 [place] [facility] Reason Comments Eye Problem Possible bilateral e ye infection x 2.5 weeks Reason Comments Patient Question Reason Comments Follow Up htn, meds and sorene ss under eyes since May Reason Comments New Patient Evaluation Specialty Diagnoses / Procedures Referred By Contac t Referred To Contact Allergy / PHYSICAL THERAPY Diagnoses Allergic conjunctivitis, unspecified laterality Procedures CONSULT TO ALLERGY/IMMUNOLOGY OFFICE/OUTPATIENT NEW HIGH MDM 60-74 MINUTES Florinda Kruse, TACTICAL INTELLIGENCE OFFICER.[employer] [address] [place] [address] [employer] [address] [place] [address] Referral ID Status Reason Start Date Expiration Date V isits Requested Visits Authorized [id number] Closed PCP Requested Referral 10/29/2023 12/08/2023 1 1 Reason Comments Hypertension Reason Comments Nasal Congestion drainage, cough x 1 month, blood pressure running higher Care Teams (unrecognized sec tion and content) Relay Tester Relationship Specialty Start Date End Date Crista Levine MD [address] [place] [address] PCP - General Internal Medicine 10/25/19 Relay Tester Relationship Specialty Start Date End Date Crista Levine MD [address] [place] [address] PCP - General Internal Medicine 10/25/19 Relay Tester Relationship Specialty Start Date End Date Crista Levine MD [address] [place] [address] PCP - General Internal Medicine 10/25/19 Relay Tester Relationship Specialty Start Date End Date Crista Levine MD [address] [place] [address] PCP - General Internal Medicine 10/25/19 Relay Tester Relationship Specialty Start Date End Date Crista Levine MD [address] [place] [address] PCP - General Internal Medicine 10/25/19 Relay Tester Relationship Specialty Start Date End Date Crista Levine MD [address] [place] [address] PCP - General Internal Medicine 10/25/19 Relay Tester Relationship Specialty Start Date End Date Crista Levine MD [address] [place] [address] PCP - General Internal Medicine 10/25/19 Relay Tester Relationship Specialty Start Date End Date Crista Levine MD [address] [place] [address] PCP - General Internal Medicine 10/25/19 Relay Tester Relationship Specialty Start Date End Date Crista Levine MD [address] [facility] [address] PCP - General Internal Medicine 10/25/19 Relay Tester Relationship Specialty Start Date End Date Crista Levine MD [address] [facility] [place] [address] PCP - General Internal Medicine 10/25/19 Relay Tester Relationship Specialty Start Date End Date Crista Levine MD [address] [facility] [place] [address] PCP - General Internal Medicine 10/25/19 Relay Tester Relationship Specialty Start Date End Date Crista Levine MD [address] [facility] [place] [address] PCP - General Internal Medicine 10/25/19 Relay Tester Relationship Specialty Start Date End Date Crista Levine MD [address] [facility] [place] [address] PCP - General Internal Medicine 10/25/19 Relay Tester Relationship Specialty Start Date End Date Crista Levine MD [address] [facility] [address] PCP - General Internal Medicine 10/25/19 Relay Tester Relationship Specialty Start Date End Date Crista Levine MD [address] [place] [address] PCP - General Internal Medicine 10/25/19 Relay Tester Relationship Specialty Start Date End Date David Perla APRN.[employer] [address] [place] [address] PCP - General Family Medicine 05/18/23 Relay Tester Relationship Specialty Start Date End Date David Perla APRN.[employer] [address] [place] [address] PCP - General Family Medicine 05/18/23 Relay Tester Relationship Specialty Start Date End Date Crista Levine MD [address] [place] [address] PCP - General Internal Medicine 08/11/23 Relay Tester Relationship Specialty Start Date End Date Crista Levine MD [address] [place] [address] PCP - General Internal Medicine 08/11/23 Relay Tester Relationship Specialty Start Date End Date Crista Levine MD [address] [place] [address] PCP - General Internal Medicine 10/25/19 05/17/23 Relay Tester Relationship Specialty Start Date End Date Crista Levine MD [address] [place] [address] PCP - General Internal Medicine 08/11/23 Relay Tester Relationship Specialty Start Date End Date Crista Levine MD [address] [place] [address] PCP - General Internal Medicine 08/11/23 Relay Tester Relationship Specialty Start Date End Date Crista Levine MD [address] [place] [address] PCP - General Internal Medicine 08/11/23 Relay Tester Relationship Specialty Start Date End Date Crista Levine MD [address] [place] [address] PCP - General Internal Medicine 08/11/23 Relay Tester Relationship Specialty Start Date End Date Crista Levine MD [address] [place] [address] PCP - General Internal Medicine 08/11/23 FOR RECORDS PERTAINING TO PATIENTS WHO ARE OR HAVE BEEN ENROLLED IN A CHEMICAL DEPENDENCY/SUBSTANCEABUSE PROGRAM, SOME INFORMATION MAY BE OMITTED. This clinical summary was aggregated from multiple sources. Caution should be exercised in using it in the provision of clinical care. This summary normalizes information from multiple sources, and as a consequence, information in this document may materially change the coding, format and clinical context of patient data. In addition, data may be omitted in some cases. CLINICAL DECISIONS SHOULD BE BASED ON THE PRIMARY CLINICAL RECORDS. [email or web address] provides no warranty or guarantee of the accuracy or completeness of information in this document.
[2023-12-28 22:00] VITALS: BP 140/96; PULSE 85; RESP 18; TEMP 37; O2SAT 98
[2023-12-28 22:00] LABS: Absolute Lymphocyte Count 3.81 X10^3/uL (0.83-4.51); Basophil# 0.03 X10^3/uL; Basophil% 0.3 % (0-1); Eosinophil# 0.09 X10^3/uL; Eosinophils% 0.8 % (0-5); Hematocrit 45.7 % (37-47); Hemoglobin 15.4 g/dL (12.0-15.0); Lymphocyte # 3.81 X10^3/ul (0.83-4.51); Lymphocyte % 32.8 % (19-41); Mean Corp Hgb Conc 33.7 g/dL (32-36); Mean Corpuscular Volume 89.1 fL (81-99); Mean Platelet Vol. 9.8 fl (6.2-12.0); Monocyte# 0.67 X10^3/uL; Monocyte% 5.8 % (0-10); NRBC Flagged by Analyzer 0 % (0-5); Neutrophil # 6.99 X10^3/uL (2.7-7.7); Platelet Count 350 K/mm3 (150-450); RBC Distribution Width CV 12.9 % (11.6-14.6); RBC Distribution Width SD 42.6 fl (35.1-43.9); Red Blood Count 5.13 M/mm3 (4.2-5.4); White Blood Count 11.6 K/mm3 (4.4-11.0)
--- NOTE | 2023-12-28 22:00 | HP.PCM.HOS_ITS ---
HPI - General General Date of Admission: 12/28/23 Date of Service: 12/28/23 Chief Complaint: BZD withdrawal HPI Narrative GARY DELACRUZ, is a 48 F who presents [facility] Medical History Acute bronchitis, unspecified Anemia Anxiety Contact with and (suspected) exposure to other viral communicable diseases Diverticulitis Fatigue History of COVID-19 History of diverticulitis Hypertension Lymph node disorder Panic disorder Personal history of colonic polyps Shortness of breath Smoker Vaso vagal episode Wears partial dentures Home Medications hydrochlorothiazide 12.5 mg capsule 12.5 mg PO DAILY 10/18/18 [History Last Taken Unknown] alprazolam 1 mg tablet 1 mg PO TID 04/29/23 [History Last Taken Unknown] Allergy/AdvReac Type Severity Reaction Status Date / Time Sulfa (Sulfonamide Allergy Shortness Verified 12/28/23 21:12 Antibiotics) of breath ciprofloxacin [From Cipro] AdvReac Other Verified 12/28/23 21:12 Surgical History History of hysterectomy History of tooth extraction History of tubal ligation Hx of bladder repair surgery Hx of colonoscopy Social History household members: spouse Smoking Status: Current every day smoker tobacco type: cigarettes alcohol intake: never substance use type: does not use Vital Signs Vital Signs Vital Signs: 12/28/23 21:12 Temperature 98.9 F Temperature Source Temporal Pulse Rate 115 H Respiratory Rate 26 H Blood Pressure 171/108 H Blood Pressure Mean 129 Pulse Ox 99 Oxygen Delivery Method Room Air Weight Weight: 145 lb 4.554 oz Body Mass Index (BMI) 24.1 Results Lab / Micro Data 12/28/23 21:55 12/28/23 21:55 Labs: Laboratory Results - last 24 hr 12/28/23 21:55: Ur Drug Screen Comment
--- NOTE | 2023-12-28 22:00 | PCM.HP.STD ---
HPI - General General Date of Admission: 12/28/23 Date of Service: 12/28/23 Chief Complaint: BZD withdrawal HPI Narrative The patient is a 48 y/o F w/ PMHx: Chronic anemia, Anxiety/Panic disorder, Tobacco use, HTN who presents to the [facility] ED on 12/28/23 with history of significant prolonged usage of Xanax at approximately now 1 mg 3 times daily with lengthy discussions with her primary care and counseling center with desire to de-escalate off benzodiazepine regimen with referral to a program which she presented to the day prior to current presentation but said that she felt a comfortable there and it was more of an outpatient program with both men and women in the same setting prompting her to leave to seek an alternate source of withdrawal treatment. She notes that her last dose of benzodiazepine was at 5 PM 12/27/2023 with now onset of nausea, mild tremors, tactile disturbances, fatigue. In the ED workup included T98.6, heart rate 86 5, BP 140/96, respiratory rate 18, 98% on room air, CBC with WBC 11.6, hemoglobin 15.4, platelets 350 without marked shift, CMP pending upon requested evaluation of patient, serum negative, UDS with positive barbiturate/benzodiazepine, ethyl alcohol less than 3. In the ED discussed presentation with ED physician and requested benzodiazepine dose be administered pending transition to inpatient status. [facility] Medical History (Updated 12/28/23 @ 22:[address] Lorena Reza MD) Anemia Anxiety History of COVID-19 History of diverticulitis Hypertension Panic disorder Personal history of colonic polyps Smoker Vaso vagal episode Wears partial dentures Home Medications hydrochlorothiazide 12.5 mg capsule 12.5 mg PO DAILY 10/18/18 [History Last Taken Unknown] alprazolam 1 mg tablet 1 mg PO TID 04/29/23 [History Last Taken Unknown] Allergy/AdvReac Type Severity Reaction Status Date / Time Sulfa (Sulfonamide Allergy Shortness Verified 12/28/23 21:12 Antibiotics) of breath ciprofloxacin [From Cipro] AdvReac Other Verified 12/28/23 21:12 Family History (Updated 12/28/23 @ 22:[address] Lorena Reza MD) Mother Hypertension Alcoholism Father Hypertension Prostate cancer Alcoholism Surgical History History of hysterectomy History of tooth extraction History of tubal ligation Hx of bladder repair surgery Hx of colonoscopy Social History (Updated 12/28/23 @ 22:[address] Lorena Reza MD) household members: spouse Smoking Status: Current every day smoker tobacco type: cigarettes Smoking packs per day: 1 Smoking cigarettes per day: 20.0 alcohol intake: never substance use type: other details: On chronic rx xanax. ROS ROS Narrative Admission Review of Systems: CONSTITUTIONAL: No weight loss, fever, chills, + weakness or fatigue. HEENT: Eyes: No visual loss, blurred vision, double vision or yellow sclerae. Ears, Nose, Throat: No hearing loss, sneezing, congestion, runny nose or sore throat. SKIN: No rash or itching, lesions, wounds. CARDIOVASCULAR: No chest pain, chest pressure or chest discomfort, palpitations, edema, orthopnea, syncopal events. RESPIRATORY: No shortness of breath, cough or sputum, wheezing, hemoptysis. GASTROINTESTINAL: + anorexia, nausea without vomiting. No diarrhea, abdominal pain, melena, BRBPR. GENITOURINARY: No dysuria, frequency, urgency or retention. NEUROLOGICAL: + headache, tremors, tactile disturbances. No dizziness, syncope, paralysis, ataxia, numbness or tingling in the extremities, focal weakness, change in bowel or bladder control, seizure. MUSCULOSKELETAL: + muscle, back pain, joint pain or stiffness. HEMATOLOGIC: No anemia, bleeding or bruising. LYMPHATICS: No enlarged nodes. No history of splenectomy. PSYCHIATRIC: + Significant anxiety/panic disorder history. ENDOCRINOLOGIC: No reports of sweating, cold or heat intolerance. No polyuria or polydipsia. ALLERGIES: No history of asthma, hives, eczema or rhinitis. Vital Signs Vital Signs Vital Signs: 12/28/23 21:12 Temperature 98.9 F Temperature Source Temporal Pulse Rate 115 H Respiratory Rate 26 H Blood Pressure 171/108 H Blood Pressure Mean 129 Pulse Ox 99 Oxygen Delivery Method Room Air Weight Weight: 145 lb 4.554 oz Body Mass Index (BMI) 24.1 Physical Exam Narrative Physical Examination: General: Awake, alert, oriented x 3 and cooperative, seated upright in the ED bed, anxious, holding emesis bag. Skin: Normal color, normal turgor, no icterus, no cyanosis. HEENT: AT/NC, EOMI, PERRLA, dry MM, no carotid bruits or JVD noted. Lungs: Mildly diminished, greater bases, appropriate effort, no rales, ronchi or wheezing. Heart: Regular rate and rhythm; no gallop, rub audible. Abdomen: Soft, NTTP, ND, hyperactive BS, no HSM. Extremities: No cyanosis, clubbing, or edema. Neurological: Patient awake, alert, oriented as noted, cognitive function intact; pupils equally reactive to light and accommodation, cranial nerves II-XII grossly normal, moving all 4 extremities, no focal deficits, strength moderately global decrease secondary to acute withdrawal symptoms, describing tactile disturbances, mildly tremulous, nauseous holding emesis bag. Psychiatric: Affect appears ill, active withdrawal evident, no acute evidence of depressive or anxiety feelings but does have severe underlying anxiety. Results Lab / Micro Data 12/28/23 21:55 12/28/23 21:55 Labs: Laboratory Results - last 24 hr 12/28/23 21:55: Ur Drug Screen Comment Assessment & Plan Assessment/Plan (1) Benzodiazepine withdrawal: PLAN: Plan The patient is a 48 y/o F w/ PMHx: Chronic anemia, Anxiety/Panic disorder with benzodiazepine dependency, Tobacco use, HTN who presents to the [facility] ED on 12/28/23 with history of significant prolonged usage of Xanax at approximately now 1 mg 3 times daily with preference to de-escalate off benzodiazepines and active benzodiazepine withdrawal. #1. Acute benzodiazepine withdrawal: Will admit to [facility], routine labs obtained in the ED upon presentation as noted with CMP pending upon evaluation otherwise labs not marked appearing. Given interest in transitioning off chronic long-term benzodiazepine therapy, will initiate and continue on protocol with taper course of Phenobarbital, as needed gabapentin, Catapres, Bentyl, Vistaril, IV fluids, IV antiemetics, Tylenol as needed for pain. Will consult Case management for assistance for transition to next level of rehabilitation care. #2. Anxiety/panic disorder: Case management/180 consulted as noted, will strongly benefit from ongoing aggressive counseling and therapy as well as reevaluation of medications to avoid benzodiazepines and addictive medications in the future. #3. History of anemia, primarily noted in per chart report: Chart reported history, admission hemoglobin 15.4, MCV 89.1, baseline hemoglobin noted previously also normal range, last noted prior to this 08/10/2023 hemoglobin 14.7. #4. Hypertension: Continue home regimen including hydrochlorothiazide, PRN hydralazine. #5. Tobacco Abuse: Encouraged cessation, inpatient consultation per RT, NR if desired. #6. DVT prophylaxis: Low risk, encourage ambulation for type of admission. Charges/Coding Visit Charges Inpatient E&M: 37821 Init Hosp L2
[2023-12-28] MEDS: Phenobarbital 32.4 MG Tablet 97.2000000000000028 MG PO (22:08)
[2023-12-28 22:12] LABS: Amphetamine Urine VISTA NEGATIVE (<1000 ng/mL); Barbiturate Urine VISTA POSITIVE (< 200 ng/mL); Benzodiazepine Urine VISTA POSITIVE (< 200 ng/mL); Cocaine Urine VISTA NEGATIVE (< 300 ng/mL); Ecstacy Urine VISTA NEGATIVE (< 500 ng/mL); Methadone Urine VISTA NEGATIVE (< 300 ng/mL); PCP Urine VISTA NEGATIVE (< 25 ng/mL); THC Urine VISTA NEGATIVE (< 50 ng/mL); Vista UDS pH Range 6
[2023-12-28 22:16] LABS: Internal QC Validated? YES +Cl - CLEAR BKGD; Pregnancy, Serum, hCG Quali. NEGATIVE Negative
[2023-12-28 22:18] LABS: Alcohol, Blood (Medical)-Serum < 3.0 mg/dL
[2023-12-28 22:23] LABS: ALB/GLOB Ratio 1.2 RATIO (0.9-2.4); AST(SGOT) 16 U/L (15-37); Alanine Aminotransfer ALT/SGPT 23 U/L (13-56); Albumin, Serum 4.3 g/dL (3.2-5.0); Alkaline Phosphatase 72 U/L (45-117); Anion Gap 3 (5-15); BUN 9 mg/dL (7-18); BUN/Creat Ratio 10.2 RATIO (10-20); Calcium,Total 9.6 mg/dL (8.5-10.1); Chloride 105 mmol/L (98-107); Creatinine, Serum 0.88 mg/dL (0.55-1.02); EST Glomerular Filtration Rate 73 mL/min (>60); Est Glom Filt Rate - Afr Amer 88 mL/min (>60); Estimated Creatinine Clearance 71.12 ml/min; Globulin 3.5 g/dL (2.2-4.2); Glucose 102 mg/dL (74-106); Potassium 3.6 mmol/L (3.5-5.1); Protein, Total 7.8 g/dL (6.4-8.2); Sodium Level 137 mmol/L (136-145)
[2023-12-28 23:02] VITALS: BMI 24.0
[2023-12-28 23:17] VITALS: BP 137/96; PULSE 83; RESP 16; TEMP 36.8; O2SAT 95
[2023-12-28] MEDS: Lactated Ringers 1,000 ML 125 ML IV (23:33)
[2023-12-28] MEDS: Phenobarbital 32.4 MG Tablet 64.7999999999999972 MG PO (23:34)
[2023-12-28] MEDS: Ondansetron 8 MG Tablet PO (23:35)
[2023-12-28] MEDS: Nicotine Polacrilex 2 MG GUM PO (23:49)
[2023-12-28] MEDS: traZODone 100 MG Tablet PO (23:56)
[2023-12-29] MEDS: Gabapentin 300 MG Capsule PO ×2 (00:29→12:13)
[2023-12-29 04:20] VITALS: BP 98/62; PULSE 77; RESP 14; TEMP 36.8; O2SAT 97
[2023-12-29] MEDS: Phenobarbital 32.4 MG Tablet 64.7999999999999972 MG PO ×6 (04:24→23:17)
[2023-12-29] MEDS: Ondansetron 8 MG Tablet PO (08:27)
[2023-12-29] MEDS: hydroCHLOROthiazide 12.5mg 12.5 MG PO (08:27)
[2023-12-29] MEDS: hydrOXYzine PAM 25 MG Capsule 50 MG PO ×3 (08:31→20:12)
[2023-12-29 10:00] VITALS: BP 125/78; PULSE 69; RESP 16; TEMP 36.7; O2SAT 97
--- NOTE | 2023-12-29 11:25 | ADDICTION ---
Attempted to meet with pt. Pt was unable to answer many questions. ASAM was completed. D/C planning will be completed tomorrow.
[2023-12-29] MEDS: Nicotine Polacrilex 2 MG GUM PO ×4 (12:13→23:21)
--- NOTE | 2023-12-29 13:58 | PN.HOSP_ITS ---
Reason for Visit Reason for Visit: Diagnoses Sedative, hypnotic or anxiolytic use, unspecified with withdrawal, unspecified (12/28/23) Objective Data Objective Data Vital Signs: Vital Signs Temp Pulse Resp BP Pulse Ox O2 Del Method 98.1 F 69 16 125/78 H 97 Room Air 12/29/23 10:00 12/29/23 10:00 12/29/23 10:00 12/29/23 10:00 12/29/23 10:00 12/29/23 10:00 Oxygen Delivery Method Room Air Weight: 144 lb 4 oz Body Mass Index (BMI) 24.0 Intake & Output: Intake and Output for Last 24 Hours 12/27/23 12/28/23 12/29/23 23:59 23:59 23:59 Intake Total 1370 / 1370 Balance 1370 / 1370 Lab / Micro Data 12/28/23 21:55 12/28/23 21:55 Labs: Laboratory Results - last 24 hr 12/28/23 21:55: WBC 11.6 H, RBC 5.13, Hgb 15.4 H, Hct 45.7, MCV 89.1, MCH 30.0, MCHC 33.7, RDW Std Deviation 42.6, RDW Coeff of Carline 12.9, Plt Count 350, MPV 9.8, Immature Gran % (Auto) 0.300, Neut % (Auto) 60.0, Lymph % (Auto) 32.8, [place] % (Auto) 5.8, Eos % (Auto) 0.8, Baso % (Auto) 0.3, Absolute Neuts (auto) 7.0, Absolute Lymphs (auto) 3.81, Nucleated RBC % 0, Sodium 137, Potassium 3.6, Chloride 105, Carbon Dioxide 29.0, Anion Gap 3 L, BUN 9, Creatinine 0.88, Estim Creat Clear Calc 71.12, Est GFR (MDRD) Af Amer 88, Est GFR (MDRD) Non-Af 73, BUN/Creatinine Ratio 10.2, Glucose 102, Calcium 9.6, Total Bilirubin 0.30, AST 16, ALT 23, Alkaline Phosphatase 72, Total Protein 7.8, Albumin 4.3, Globulin 3.5, Albumin/Globulin Ratio 1.2, Serum , Qual NEGATIVE, Urine Opiates Screen NEGATIVE, Urine Methadone Screen NEGATIVE, Ur Barbiturates Screen POSITIVE H, Ur Phencyclidine Scrn NEGATIVE, Ur Amphetamines Screen NEGATIVE, MDMA (Ecstasy) Screen NEGATIVE, U Benzodiazepines Scrn POSITIVE H, Urine Cocaine Screen NEGATIVE, U Cannabinoids Screen NEGATIVE, Ur Drug Screen Comment , Ethyl Alcohol < 3.0 Assessment & Plan Assessment/Plan (1) Benzodiazepine withdrawal: PLAN: Plan The patient is a 48 y/o F who [facility] ED on with history of significant prolonged usage of Xanax at approximately now 1 mg 3 times daily with preference to de-escalate off benzodiazepines and active benzodiazepine withdrawal. #1. Acute benzodiazepine withdrawal with history of chronic benzodiazepine use, dependence and tolerance: [facility]. Patient on phenobarbital based order set along with other adjunctive medications gabapentin, Bentyl, Vistaril, clonidine, Klonopin as needed for alcohol withdrawal symptom control. Serum alcohol negative. Liver chemistry normal limit. Mild leukocytosis 11.6 thousand, nonspecific. Electrolytes in normal range. U tox shows positive of benzodiazepine and barbiturates. fermentation manager consulted. #2. Anxiety/panic disorder: Case management/180 consulted as noted, will strongly benefit from ongoing aggressive counseling and therapy as well as reevaluation of medications to avoid benzodiazepines and addictive medications in the future. #3. History of anemia, primarily noted in per chart report: Chart reported history, admission hemoglobin 15.4, MCV 89.1, baseline hemoglobin noted previously also normal range, last noted prior to this 08/10/2023 hemoglobin 14.7. #4. Hypertension: Continue home regimen including hydrochlorothiazide, PRN hydralazine. #5. Tobacco Abuse: Encouraged cessation, inpatient consultation per RT, NR if d esired. #6. DVT prophylaxis: Low risk, encourage ambulation for type of admission. Laboratory Results 12/28/23 21:55: WBC 11.6 H, RBC 5.13, Hgb 15.4 H, Hct 45.7, MCV 89.1, MCH 30.0, MCHC 33.7, RDW Std Deviation 42.6, RDW Coeff of Carline 12.9, Plt Count 350, MPV 9.8, Immature Gran % (Auto) 0.300, Neut % (Auto) 60.0, Lymph % (Auto) 32.8, [place] % (Auto) 5.8, Eos % (Auto) 0.8, Baso % (Auto) 0.3, Absolute Neuts (auto) 7.0, Absolute Lymphs (auto) 3.81, Nucleated RBC % 0, Sodium 137, Potassium 3.6, Chloride 105, Carbon Dioxide 29.0, Anion Gap 3 L, BUN 9, Creatinine 0.88, Estim Creat Clear Calc 71.12, Est GFR (MDRD) Af Amer 88, Est GFR (MDRD) Non-Af 73, BUN/Creatinine Ratio 10.2, Glucose 102, Calcium 9.6, Total Bilirubin 0.30, AST 16, ALT 23, Alkaline Phosphatase 72, Total Protein 7.8, Albumin 4.3, Globulin 3.5, Albumin/Globulin Ratio 1.2, Serum , Qual NEGATIVE, Urine Opiates Screen NEGATIVE, Urine Methadone Screen NEGATIVE, Ur Barbiturates Screen POSITIVE H, Ur Phencyclidine Scrn NEGATIVE, Ur Amphetamines Screen NEGATIVE, MDMA (Ecstasy) Screen NEGATIVE, U Benzodiazepines Scrn POSITIVE H, Urine Cocaine Screen NEGATIVE, U Cannabinoids Screen NEGATIVE, Ur Drug Screen Comment , Ethyl Alcohol < 3.0 Charges/Coding Visit Charges Inpatient E&M: 16789 Subs Hosp L2
[2023-12-29 16:00] VITALS: BP 127/80; PULSE 78; RESP 16; TEMP 36.6; O2SAT 98
[2023-12-29 19:52] VITALS: BP 121/85; PULSE 75; RESP 16; TEMP 36.6; O2SAT 97
[2023-12-29] MEDS: traZODone 100 MG Tablet PO (20:00)
[2023-12-29 23:18] VITALS: BP 113/60; PULSE 65; RESP 16; TEMP 36.5; O2SAT 96
[2023-12-30] MEDS: Phenobarbital 32.4 MG Tablet 64.7999999999999972 MG PO ×5 (04:45→20:20)
[2023-12-30 04:47] VITALS: BP 101/78; PULSE 64; RESP 16; TEMP 36.6; O2SAT 94
[2023-12-30] MEDS: hydrOXYzine PAM 25 MG Capsule 50 MG PO ×3 (04:51→20:20)
[2023-12-30 07:46] VITALS: O2SAT 96
[2023-12-30] MEDS: Nicotine Polacrilex 2 MG GUM PO ×3 (08:14→20:19)
[2023-12-30 08:15] VITALS: BP 102/72; PULSE 68; RESP 16; TEMP 36.6; O2SAT 97
[2023-12-30] MEDS: Gabapentin 300 MG Capsule PO ×2 (08:20→16:46)
[2023-12-30] MEDS: Ondansetron 8 MG Tablet PO (08:20)
--- NOTE | 2023-12-30 11:03 | PCM.PN.HOSP ---
Reason for Visit Reason for Visit: Diagnoses Sedative, hypnotic or anxiolytic use, unspecified with withdrawal, unspecified (12/28/23) Objective Data Objective Data Vital Signs: Vital Signs Temp Pulse Resp BP Pulse Ox O2 Del Method 97.9 F 68 16 102/72 97 Room Air 12/30/23 08:15 12/30/23 08:15 12/30/23 08:15 12/30/23 08:15 12/30/23 08:15 12/30/23 08:15 Oxygen Delivery Method Room Air Weight: 144 lb 4 oz Body Mass Index (BMI) 24.0 Intake & Output: Intake and Output for Last 24 Hours 12/28/23 12/29/23 12/30/23 23:59 23:59 23:59 Intake Total 1370 / 1370 Balance 1370 / 1370 Lab / Micro Data 12/28/23 21:55 12/28/23 21:55 Physical Exam Narrative Seen and examined. Patient is states her anxiety restlessness is much improved. She had some weird dreams but denies hallucination Physical exam: General: Alert, Oriented x3, Cooperative HEENT: Atraumatic, PERRLA, EOMI, Normocephalic Oral: Oral mucosa moist. No Gingival or Mucosal Lesions/ Ulcerations Neck: Supple, No JVD, Negative Carotid Bruits Chest wall/Lungs: Air entry diminished in bilateral lung bases. No crepitation/rhonchi Cardiovascular: Regular rate, Regular Rhythm, Normal S1, Normal S2, No M/G/R Abdomen: Bowel Sounds Present, Soft, Non Tender, Non-Distended : No dysuria. No renal angle tenderness. No suprapubic tenderness. Extremities: No edema, Capillary Refill Less than 3 Seconds Skin: No rashes, No breakdown Musculoskeletal: No Tenderness to Palpation of Joints or Extremities. ROM fully intact Neurological: Cranial nerves II-XII grossly intact, DTR 2+/4. No acute focal neurological deficit. Psych/Mental Status: Normal Affect, Appropriate. Mild anxiety. Assessment & Plan Assessment/Plan (1) Benzodiazepine withdrawal: PLAN: Plan The patient is a 48 y/o F who was admitted on [facility] floor through ED on 12/28/23 with history of significant prolonged usage of Xanax at approximately now 1 mg 3 times daily with preference to de-escalate off benzodiazepines and active benzodiazepine withdrawal. #1. Acute benzodiazepine withdrawal with history of chronic benzodiazepine use, dependence and tolerance: Patient is being admitted to [facility] floor. Patient on phenobarbital based order set along with other adjunctive medications gabapentin, Bentyl, Vistaril, clonidine, Klonopin as needed for alcohol withdrawal symptom control. Serum alcohol negative. Liver chemistry normal limit. Mild leukocytosis 11.6 thousand, nonspecific. Electrolytes in normal range. U tox shows positive of benzodiazepine and barbiturates. hardware engineering manager consulted. 12/30: Patient anxiety and restlessness is much improved. Patient asked for antianxiety medication except benzodiazepines like BuSpar. Patient was advised that BuSpar is not benzodiazepine but is still if taken for a long time might be habit-forming/mild dependence. Also given option for antihistamine like hydroxyzine. Patient is reminded not to use any benzodiazepines. #2. Anxiety/panic disorder: Case management/180 consulted as noted, will strongly benefit from ongoing aggressive counseling and therapy as well as reevaluation of medications to avoid benzodiazepines and addictive medications in the future. #3. History of anemia, primarily noted in per chart report: Chart reported history, admission hemoglobin 15.4, MCV 89.1, baseline hemoglobin noted previously also normal range, last noted prior to this 08/10/2023 hemoglobin 14.7. #4. Hypertension: Continue home regimen including hydrochlorothiazide, PRN hydralazine. #5. Tobacco Abuse: Encouraged cessation, inpatient consultation per RT, NR if desired. #6. DVT prophylaxis: Low risk, encourage ambulation for type of admission. Laboratory Results 12/28/23 21:55: WBC 11.6 H, RBC 5.13, Hgb 15.4 H, Hct 45.7, MCV 89.1, MCH 30.0, MCHC 33.7, RDW Std Deviation 42.6, RDW Coeff of Carline 12.9, Plt Count 350, MPV 9.8, Immature Gran % (Auto) 0.300, Neut % (Auto) 60.0, Lymph % (Auto) 32.8, [place] % (Auto) 5.8, Eos % (Auto) 0.8, Baso % (Auto) 0.3, Absolute Neuts (auto) 7.0, Absolute Lymphs (auto) 3.81, Nucleated RBC % 0, Sodium 137, Potassium 3.6, Chloride 105, Carbon Dioxide 29.0, Anion Gap 3 L, BUN 9, Creatinine 0.88, Estim Creat Clear Calc 71.12, Est GFR (MDRD) Af Amer 88, Est GFR (MDRD) Non-Af 73, BUN/Creatinine Ratio 10.2, Glucose 102, Calcium 9.6, Total Bilirubin 0.30, AST 16, ALT 23, Alkaline Phosphatase 72, Total Protein 7.8, Albumin 4.3, Globulin 3.5, Albumin/Globulin Ratio 1.2, Serum , Qual NEGATIVE, Urine Opiates Screen NEGATIVE, Urine Methadone Screen NEGATIVE, Ur Barbiturates Screen POSITIVE H, Ur Phencyclidine Scrn NEGATIVE, Ur Amphetamines Screen NEGATIVE, MDMA (Ecstasy) Screen NEGATIVE, U Benzodiazepines Scrn POSITIVE H, Urine Cocaine Screen NEGATIVE, U Cannabinoids Screen NEGATIVE, Ur Drug Screen Comment , Ethyl Alcohol < 3.0 Charges/Coding Visit Charges Inpatient E&M: 32128 Subs Hosp L2
--- NOTE | 2023-12-30 11:17 | ADDICTION ---
Met with pt to discuss d/c planning. Pt plans to continue psychiatry at [facility] and go back to her EMDR therapist at [facility] post d/c.
[2023-12-30] MEDS: hydroCHLOROthiazide 12.5mg 12.5 MG PO (11:48)
[2023-12-30 11:50] VITALS: BP 124/82; PULSE 73; RESP 18
[2023-12-30] MEDS: Dicyclomine 10 MG Capsule 20 MG PO (12:31)
[2023-12-30] MEDS: Senna/Docusate Sodium 1 Tablet 2 TABLET PO (16:45)
[2023-12-30 16:50] VITALS: BP 129/85; PULSE 79; RESP 18; TEMP 36.9; O2SAT 99
[2023-12-30] MEDS: traZODone 100 MG Tablet PO (20:20)
[2023-12-30 20:22] VITALS: BP 122/77; PULSE 76; RESP 16; TEMP 36.8; O2SAT 95
[2023-12-31] MEDS: Phenobarbital 32.4 MG Tablet 64.7999999999999972 MG PO ×3 (00:28→08:47)
[2023-12-31 00:30] VITALS: BP 104/72; PULSE 62; RESP 16; TEMP 36.7; O2SAT 96
[2023-12-31 04:25] VITALS: BP 101/74; PULSE 70; RESP 16; TEMP 36.5; O2SAT 96
[2023-12-31] MEDS: Gabapentin 300 MG Capsule PO (04:28)
[2023-12-31 08:12] VITALS: O2SAT 94
--- NOTE | 2023-12-31 08:33 | PCM.DC ---
Discharge Instructions Diet Discharge Diet: No restrictions Activity Discharge Activity: Return to Normal Activity Weight Bearing Status: Weight bearing as tolerated Dressing / Incision Call your doctor if you observe: Fever of 101 or Higher, Coldness, Increased Pain, Numbness or Tingling, Change in Color, Inability to urinate, Inability to have a bowel movement, Using more than 1 pad per hour, Shortness of breath, Dizziness, Fainting spells, Swelling in the ankles, Chest pain, Prolonged hiccupping, Increased palpitations (irregular heartbeat) and Calf discomfort Follow Up Care When: IN 2 WEEKS Test Results: Test results from this visit will be discussed in further detail at your follow-up appointment, if applicable. Discharge Plan Admission Admit Date/Time: 12/28/23 22:00 Primary Reason for Your Visit: Benzodiazepine withdrawal syndrome Attending Provider: Dougie Rosas Primary Care Provider: Trish Toney Consulting Providers: Lorena Reza Discharge Orders/Prescriptions Prescriptions: New buspirone 10 mg tablet 10 mg PO BID PRN (Reason: anxiety) Qty: 30 0RF Continued hydrochlorothiazide 12.5 mg capsule 12.5 mg PO DAILY Discontinued alprazolam 1 mg tablet 1 mg PO TID Referrals / Follow Up: Trish Toney MD [Primary Care Provider] - Within 2 Weeks Disposition Disposition (needs filled in before D/C Order can be placed): Home, Self Care
--- NOTE | 2023-12-31 08:35 | DS.PCM_ITS ---
Providers Date of Admission: 12/28/23 Date of Discharge: 12/31/23 Primary Care Physician: Dr. Trish Toney MD Reason For Visit: BZD WITHDRAWAL Diagnosis Discharge Diagnosis (1) Benzodiazepine withdrawal: Status: Acute Code(s): F13.939 - Sedative, hypnotic or anxiolytic use, unspecified with withdrawal, unspecified Plan The patient is a 48 y/o F who [facility] ED on 12/28/23 with history of significant prolonged usage of Xanax at approximately now 1 mg 3 times daily with preference to de-escalate off benzodiazepines and active benzodiazepine withdrawal. #1. Acute benzodiazepine withdrawal with history of chronic benzodiazepine use, dependence and tolerance: Patient is being admitted to [facility] floor. Patient on phenobarbital based order set along with other adjunctive medications gabapentin, Bentyl, Vistaril, clonidine, Klonopin as needed for alcohol withdrawal symptom control. Serum alcohol negative. Liver chemistry normal limit. Mild leukocytosis 11.6 t housand, nonspecific. Electrolytes in normal range. U tox shows positive of benzodiazepine and barbiturates. manager bar consulted. 12/31: Patient was given prescription of buspirone 10 mg twice daily as needed for severe anxiety. She stated if this is not controlled then I suggested [id number] hydroxyzine 10 mg 3 times daily as needed or Benadryl 12.5 mg 3 times daily as needed for severe anxiety. Patient is stated that when she was taking alprazolam she was still having hand tremors but it has not resolved now. I told her it might be due to alprazolam tolerance requiring more dose or withdrawal as it is short acting benzodiazepine. She is reminded that she want to go back to alprazolam. It is discontinued. #2. Anxiety/panic disorder: Case management/180 consulted as noted, will strongly benefit from ongoing aggressive counseling and therapy as well as reevaluation of medications to avoid benzodiazepines and addictive medications in the future. 12/31: Follow-up 180 as outpatient. #3. History of anemia, primarily noted in per chart report: Chart reported history, admission hemoglobin 15.4, MCV 89.1, baseline hemoglobin noted previously also normal range, last noted prior to this 08/10/2023 hemoglobin 14.7. #4. Hypertension: Continue home regimen including hydrochlorothiazide, PRN hydralazine. #5. Tobacco Abuse: Encouraged cessation, inpatient consultation per RT, NR if desired. #6. DVT prophylaxis: Low risk, encourage ambulation for type of admission. Discharge medication reconciliation done. Discharge follow-up instructions completed. Discharge process discussed with the patient and all questions were answered to patient's satisfaction. Follow with PCP in 1 to 2 weeks Total time spent, exact 35 minutes on discharge meds reconciliation, examination, coordination of care with nurses and ancillary staff, review of imaging and blood test and discussion with the patient on follow-up instructions. Laboratory Results 12/28/23 21:55: WBC 11.6 H, RBC 5.13, Hgb 15.4 H, Hct 45.7, MCV 89.1, MCH 30.0, MCHC 33.7, RDW Std Deviation 42.6, RDW Coeff of Carline 12.9, Plt Count 350, MPV 9.8, Immature Gran % (Auto) 0.300, Neut % (Auto) 60.0, Lymph % (Auto) 32.8, [place] % (Auto) 5.8, Eos % (Auto) 0.8, Baso % (Auto) 0.3, Absolute Neuts (auto) 7.0, Absolute Lymphs (auto) 3.81, Nucleated RBC % 0, Sodium 137, Potassium 3.6, Chloride 105, Carbon Dioxide 29.0, Anion Gap 3 L, BUN 9, Creatinine 0.88, Estim Creat Clear Calc 71.12, Est GFR (MDRD) Af Amer 88, Est GFR (MDRD) Non-Af 73, BUN/Creatinine Ratio 10.2, Glucose 102, Calcium 9.6, Total Bilirubin 0.30, AST 16, ALT 23, Alkaline Phosphatase 72, Total Protein 7.8, Albumin 4.3, Globulin 3.5, Albumin/Globulin Ratio 1.2, Serum , Qual NEGATIVE, Urine Opiates Screen NEGATIVE, Urine Methadone Screen NEGATIVE, Ur Barbiturates Screen POSITIVE H, Ur Phencyclidine Scrn NEGATIVE, Ur Amphetamines Screen NEGATIVE, MDMA (Ecstasy) Screen NEGATIVE, U Benzodiazepines Scrn POSITIVE H, Urine Cocaine Screen NEGATIVE, U Cannabinoids Screen NEGATIVE, Ur Drug Screen Comment , Ethyl Alcohol < 3.0 Medications at Discharge Home Medications hydrochlorothiazide 12.5 mg capsule 12.5 mg PO DAILY bp 10/18/18 buspirone 10 mg tablet 10 mg PO BID PRN anxiety #30 tabs 12/31/23 Physical Exam Narrative Seen and examined. Her anxiety tremors are resolved. She denies any hallucination. She is ready for discharge. Physical exam: General: Alert, Oriented x3, Cooperative HEENT: Atraumatic, PERRLA, EOMI, Normocephalic Oral: Oral mucosa moist. No Gingival or Mucosal Lesions/ Ulcerations Neck: Supple, No JVD, Negative Carotid Bruits Chest wall/Lungs: Air entry diminished in bilateral lung bases. No crepitation/rhonchi Cardiovascular: Regular rate, Regular Rhythm, Normal S1, Normal S2, No M/G/R Abdomen: Bowel Sounds Present, Soft, Non Tender, Non-Distended : No dysuria. No renal angle tenderness. No suprapubic tenderness. Extremities: No edema, Capillary Refill Less than 3 Seconds Skin: No rashes, No breakdown Musculoskeletal: No Tenderness to Palpation of Joints or Extremities. ROM fully intact Neurological: Cranial nerves II-XII grossly intact, DTR 2+/4. No acute focal neurological deficit. Psych/Mental Status: Normal Affect, Appropriate. Anxiety has resolved. Weight / BMI Weight Weight: 144 lb 4 oz Body Mass Index (BMI) 24.0 ABG / Lab / Microbiology Data 12/28/23 21:55 12/28/23 21:55 D/C Instructions Discharge Diet: No restrictions Weight Bearing Status: Weight bearing as tolerated Call your doctor if you observe: Fever of 101 or Higher, Coldness, Increased Pain, Numbness or Tingling, Change in Color, Inability to urinate, Inability to have a bowel movement, Using more than 1 pad per hour, Shortness of breath, Dizziness, Fainting spells, Swelling in the ankles, Chest pain, Prolonged hiccupping, Increased palpitations (irregular heartbeat) and Calf discomfort When: IN 2 WEEKS Meaningful Use Info Meaningful Use Diagnoses (Choose all that apply): None applicable Discharge Plan Admission Admit Date/Time: 12/28/23 22:00 Primary Reason for Your Visit: Benzodiazepine withdrawal syndrome Attending Provider: Dougie Rosas Primary Care Provider: Trish Toney Consulting Providers: Lorena Reza Instructions Additional Instructions / Restrictions: Advised [id number]-[id number] hydroxyzine 10 mg 3 times daily as needed or Benadryl 12.5 mg 3 times daily as needed for severe anxiety in case not controlled with buspirone. Follow with PCP. Discharge Orders/Prescriptions Prescriptions: New buspirone 10 mg tablet 10 mg PO BID PRN (Reason: anxiety) Qty: 30 0RF Continued hydrochlorothiazide 12.5 mg capsule 12.5 mg PO DAILY Discontinued alprazolam 1 mg tablet 1 mg PO TID Referrals / Follow Up: Trish Toney MD [Primary Care Provider] - Within 2 Weeks Disposition Disposition (needs filled in before D/C Order can be placed): Home, Self Care Charges/Coding Visit Charges Inpatient E&M: 04543 Subs Hosp L2
[2023-12-31] MEDS: Nicotine Polacrilex 2 MG GUM PO (08:51)
[2023-12-31] MEDS: hydroCHLOROthiazide 12.5mg 12.5 MG PO (08:51)
[2023-12-31] MEDS: hydrOXYzine PAM 25 MG Capsule 50 MG PO (08:56)
[2023-12-31] MEDS: Ondansetron 8 MG Tablet PO (08:56)
[2023-12-31 08:57] VITALS: BP 119/86; PULSE 92; RESP 18; TEMP 36.6; O2SAT 96
--- NOTE | 2023-12-31 09:37 | PHA.DC.MC.R ---
Pharmacy [facility] has performed discharge medication reconciliation and counseling for this patient. The patient's discharge medication list was reviewed for discrepancies and discrepancies were resolved. The patient was counseled on the following discharge medications and changes in medications for homegoing were reviewed. The Reason for Use, instructions for use, and potential side effects were reviewed for all new medications. The patient's questions regarding all of their medications were answered. 1. Buspirone 10 mg PO BID PRN anxiety The patient was able to verbally demonstrate an understanding of their discharge medications. Medications at Discharge Home Medications hydrochlorothiazide 12.5 mg capsule 12.5 mg PO DAILY bp 10/18/18 buspirone 10 mg tablet 10 mg PO BID PRN anxiety #30 tabs 12/31/23
== END 2023-12-31 10:37 | disposition home or self-care (01) | DRG 897 ==
LOC: ED 21:56 → MS3 22:07
PROVIDERS: Admitting Provider Family Medicine; Emergency Provider Emergency Medicine; PCP Internal Medicine; Visit Provider Internal Medicine
DX: F13.939 Sedative, hypnotic or anxiolytic use, unspecified with withdrawal, unspecified (principal); F17.210 Nicotine dependence, cigarettes, uncomplicated; I10 Essential (primary) hypertension; Z86.16 Personal history of COVID-19; F41.0 Panic disorder [episodic paroxysmal anxiety]
CPT/HCPCS: 80053; 80307; 80320; 84703; 85025; 97802; 99284; 99406; J7120; A4216; G0480